=== PATIENT | male | born 1950 | race Caucasian/White ===

== ENCOUNTER 2021-02-11 01:57 | Day surgery (SDC) | payer MEDICARE, OTHER, SELFPAY ==
[2021-01-29 14:08] VITALS: BMI 21.8
--- NOTE | 2021-02-11 06:53 | PM.HPGS ---
History of Present Illness History of Present Illness Consent: Risks, benefits, and alternatives have been discussed and questions answered. Patient agrees to proceed with procedure. Chief complaint: neoplasm screening Narrative: Wilfredo Ponce is a 70 year old male here for colon cancer screening. He has a history of polyps Review of Systems Review of Systems: All systems reviewed & are unremarkable except as noted in HPI and below PMFSH Social History Social History Smoking status: Never smoker Alcohol use details: 1 drink a month Substance use: former Substance use type: marijuana Living arrangements: with family Gender identity (if verbalized by the patient): Male Sexual Orientation (if Verbalized by the Patient): Straight or Heterosexual Spiritual care concerns: No Meds Home Medications and Allergies Home Medications Medication Instructions Recorded Confirmed Type alprazolam 1 mg PO QID PRN 01/29/21 02/11/21 History amlodipine 10 mg PO DAILY 01/29/21 02/11/21 History apixaban [Eliquis] 5 mg PO BID 01/29/21 02/11/21 History citalopram 20 mg PO DAILY PRN 01/29/21 02/11/21 History clindamycin HCl 150 mg PO PRN PRN 01/29/21 02/11/21 History diclofenac sodium 75 mg PO BID 01/29/21 02/11/21 History fluticasone propionate 50 mcg INTRANASAL DAILY PRN 01/29/21 02/11/21 History hydrochlorothiazide 25 mg PO DAILY 01/29/21 02/11/21 History hydrocodone-acetaminophen 1 tablet PO QID PRN 01/29/21 02/11/21 History lisinopril 40 mg PO DAILY 01/29/21 02/11/21 History metoprolol succinate 100 mg PO DAILY 01/29/21 02/11/21 History pregabalin 50 mg PO DAILY PRN 01/29/21 02/11/21 History trazodone 50 mg PO DAILY 01/29/21 02/11/21 History Allergies Allergy/AdvReac Type Severity Reaction Status Date / Time No Known Allergies Allergy Verified 02/11/21 08:49 Exam Resp: Auscultation: clear to auscultation bilaterally Cardio: Rate: regular rate Rhythm: regular rhythm GI: GI Palp: Yes Soft to palpation and No Tenderness to palpation present (GI) Assessment and Plan Assessment and plan (1) Colon cancer screening: Code(s): Z12.11 - Encounter for screening for malignant neoplasm of colon Status: Acute Assessment and Plan: Colonoscopy with possible biopsy or polypectomy or cautery or injection of substances.
[2021-02-11 08:50] VITALS: BP 112/72; PULSE 45; RESP 16; TEMP 36.5; O2SAT 100
[2021-02-11] MEDS: LACTATED RINGERS 1,000 ML 150 ML IV CONT (09:08)
--- NOTE | 2021-02-11 09:36 | P.PNAN_ITS ---
Anes - Initial Pre Proc Eval Procedure: Operation Date: 02/11/21 09:30 Proposed Procedures p Screening Colonoscopy - Nasir Paul MD Date/Time: 02/11/21 09:36 Surgeon: Nasir Paul MD Pre Op Diagnosis: neoplasm screening Patient Data Age: 70 Gender: M Height: 1.78 m Weight: 67.5 kg Last Vital Signs Temp 97.7 F 02/11/21 08:50 Pulse 45 L 02/11/21 08:50 Resp 16 02/11/21 08:50 BP 112/72 02/11/21 08:50 Pulse Ox 100 02/11/21 08:50 Allergies Allergy/AdvReac Type Severity Reaction Status Date / Time No Known Allergies Allergy Verified 02/11/21 08:49 Home Medications Medication Instructions Recorded Confirmed Type alprazolam 1 mg PO QID PRN 01/29/21 02/11/21 History amlodipine 10 mg PO DAILY 01/29/21 02/11/21 History apixaban [Eliquis] 5 mg PO BID 01/29/21 02/11/21 History citalopram 20 mg PO DAILY PRN 01/29/21 02/11/21 History clindamycin HCl 150 mg PO PRN PRN 01/29/21 02/11/21 History diclofenac sodium 75 mg PO BID 01/29/21 02/11/21 History fluticasone propionate 50 mcg INTRANASAL DAILY PRN 01/29/21 02/11/21 History hydrochlorothiazide 25 mg PO DAILY 01/29/21 02/11/21 History hydrocodone-acetaminophen 1 tablet PO QID PRN 01/29/21 02/11/21 History lisinopril 40 mg PO DAILY 01/29/21 02/11/21 History metoprolol succinate 100 mg PO DAILY 01/29/21 02/11/21 History pregabalin 50 mg PO DAILY PRN 01/29/21 02/11/21 History trazodone 50 mg PO DAILY 01/29/21 02/11/21 History Patient hx anesthesia problems: none Family hx anesthesia problems: none Results Review: All pre-operative results and documents have been reviewed as part of the pre-operative evaluation. [facility] Social History Social History Smoking status: Never smoker Alcohol use details: 1 drink a month Substance use: former Substance use type: marijuana Living arrangements: with family Gender identity (if verbalized by the patient): Male Sexual Orientation (if Verbalized by the Patient): Straight or Heterosexual Spiritual care concerns: No Anes - Eval Final PreProcedure Day of Procedure 02/11/21 09:36 Patient weight: normal Heart: regular rate and rhythm Lungs: clear to auscultation Airway: Mallampati scale class II Neurological: alert and oriented Last oral intake: >/= 8 hours ASA classification: III Emergent: no Anesthetic plan: proceed Anesthesia type and monitoring: general GIVS and standard monitoring Results Review: All pre-operative results and documents have been reviewed as part of the pre-operative evaluation. Informed Consent: The patient's anesthetic plan and its attendant risks and benefits were discussed with the patient/family/POA. Questions were solicited and answers provided to the satisfaction of the patient/family/POA.
[2021-02-11 09:59] VITALS: BP 85/42; PULSE 48; RESP 18; O2SAT 100
[2021-02-11 10:09] VITALS: BP 102/63; PULSE 47; RESP 11; O2SAT 99
[2021-02-11 10:19] VITALS: BP 118/75; PULSE 50; RESP 18; O2SAT 99
== END 2021-02-11 10:24 | disposition home or self-care (01) ==
PROVIDERS: PCP Internal Medicine; Visit Provider Internal Medicine Gastroenterology
PROC: 0DJD8ZZ Inspection of Lower Intestinal Tract, Via Natural or Artificial Opening Endoscopic (ICD-10-PCS; CPT 45378; principal; 2021-02-11 09:30)
DX: Z12.11 Encounter for screening for malignant neoplasm of colon (principal); K64.8 Other hemorrhoids; Z86.010 Personal history of colon polyps; Z79.01 Long term (current) use of anticoagulants
CPT/HCPCS: G0105; J2704; J7120

== ENCOUNTER 2022-08-17 10:01 | Emergency (ER) | payer MEDICARE, OTHER, SELFPAY ==
--- NOTE | ~2022-08-17 | XR_ITS ---
EXAMINATION: XR hand LT min 3V INDICATION: Right hand pain and swelling TECHNIQUE: Three views of the right hand are obtained. COMPARISON: None available FINDINGS: There is no fracture. There are advanced osteoarthritis at the distal radioulnar joint. Mod erate osteoarthritis is noted in multiple interphalangeal joints. There is moderate osteoarthritis of the second and third fingers. No radiopaque foreign body is identified. IMPRESSION: 1. Soft tissue swelling without acute osseous abnormality. 2. Polyarticular osteoarthritis. Reviewed, dictated and finalized at location L.
--- NOTE | 2022-08-17 10:10 | ED.ANIMALBIT ---
HPI - Animal Bite General Chief Complaint: Animal Bite Stated Complaint: DOG BITE Time Seen by Provider: 08/17/22 10:11 Source: patient and RN notes reviewed History of Present Illness HPI narrative: Patient is a 72-year-old male who presents to urgent care with complaints of a dog bite to the left hand. Patient states that happened on Tuesday while his gold retriever and boxer were getting into an issue. Patient states that he stuck his hand in the middle and got bit by the Campbell retriever. Patient states that all dogs are up-to-date on vaccinations as well as himself with a tetanus. Patient called his primary care doctor yesterday and was placed on clindamycin. Denies any fevers. States the swelling in the hand has increased. No other acute complaints. No acute distress noted. Patient aware of the plan of care. Some parts of this dictation were generated by voice recognition software and may contain typographical and/or grammatical inaccuracies. Related Data Home Medications Medication Instructions Recorded Confirmed alprazolam 1 mg tablet 1 mg PO QID PRN Anxiety 01/29/21 02/11/21 amlodipine 10 mg tablet 10 mg PO DAILY 01/29/21 02/11/21 apixaban 5 mg tablet (Eliquis) 5 mg PO BID 01/29/21 02/11/21 citalopram 20 mg tablet 20 mg PO DAILY PRN Allergy Symptoms 01/29/21 02/11/21 diclofenac sodium 75 mg 75 mg PO BID 01/29/21 02/11/21 tablet,delayed release fluticasone propionate 50 50 mcg intranasal DAILY PRN 01/29/21 02/11/21 mcg/actuation nasal Congestion spray,suspension hydrochlorothiazide 25 mg tablet 25 mg PO DAILY 01/29/21 02/11/21 hydrocodone 10 mg-acetaminophen 1 tablet PO QID PRN Pain 01/29/21 02/11/21 325 mg tablet lisinopril 40 mg tablet 40 mg PO DAILY 01/29/21 02/11/21 metoprolol succinate 100 mg 100 mg PO DAILY 01/29/21 02/11/21 tablet,extended release 24 hr pregabalin 50 mg capsule 50 mg PO DAILY PRN Pain 01/29/21 02/11/21 trazodone 50 mg tablet 50 mg PO DAILY 09/16/21 09/29/21 Allergies Allergy/AdvReac Type Severity Reaction Status Date / Time No Known Allergies Allergy Verified 08/17/22 10:07 Review of Systems Review of Systems: CONSTITUTIONAL: Denies fever, chills, or sweats. EYES: Denies visual changes, redness, or discharge. ENT: Denies rhinorrhea, congestion, sore throat, or otalgia. CARDIOVASCULAR: Denies chest pain, palpitations, or edema. RESPIRATORY: Denies cough or dyspnea. GASTROINTESTINAL: Denies abdominal pain, nausea, vomiting, or diarrhea. GENITOURINARY: Denies dysuria or hematuria. SKIN: Reports of open wounds due to dog bite to the left index and ring fingers MUSCULOSKELETAL: Reports pain and swelling to the left index and middle finger NEUROLOGIC: Denies headache, numbness, or weakness. All other systems reviewed are negative, except as documented in HPI. [facility] Social History Social History Smoking status: Never smoker Alcohol use details: 1 drink a month Substance use: former Substance use type: marijuana Living arrangements: with family Gender identity (if verbalized by the patient): Male Sexual Orientation (if Verbalized by the Patient): Straight or Heterosexual Spiritual care concerns: No Comments At the time of my signature, I reviewed and agree with the nursing past medical, surgical, social, and family history. There is no relevant family history pertinent to the patient complaint. Exam Narrative: GENERAL: This is a well-nourished, well-developed patient, in no apparent distress. HEAD: normocephalic, atraumatic. EYES: PERRL. Sclera clear/white. Vision is grossly intact. EARS: External ears normal NOSE: External nose normal with no obvious nasal discharge, nares without redness, no rhinorrhea. THROAT: Mucous membranes moist NECK: Neck supple SKIN: 1 x 2 open draining dog bite/acute wound to the PIP of the left index finger with moderate edema and erythema. 3 cm healing dog bite/laceration t
[2022-08-17 10:11] VITALS: BP 123/88; PULSE 57; RESP 16; TEMP 36; O2SAT 98
== END 2022-08-17 11:00 | disposition short-term general hospital (02) ==
PROVIDERS: Emergency Provider Nurse Practitioner Family; PCP Internal Medicine
DX: S61.251A Open bite of left index finger without damage to nail, initial encounter (principal); S61.213A Laceration without foreign body of left middle finger without damage to nail, initial encounter; W54.0XXA Bitten by dog, initial encounter; I48.91 Unspecified atrial fibrillation; I10 Essential (primary) hypertension; F41.9 Anxiety disorder, unspecified
CPT/HCPCS: 73130; 99213; G0463

== ENCOUNTER 2022-08-17 11:36 | Inpatient (IN) | payer MEDICARE, OTHER, SELFPAY ==
[2022-08-17 11:52] VITALS: BP 130/71; PULSE 52; RESP 16; TEMP 36.8; O2SAT 98
[2022-08-17 14:10] LABS: Basophils Absolute Auto 0.1 K/mm3 (0.0-0.1); Basophils Percent Auto 0.4 % (0.2-1.2); Eosinophils Percent Auto 0.3 % (0-4.4); Hematocrit 33.8 % (42.0-52.0); Hemoglobin 11.1 g/dL (14.0-18.0); Immature Granulocyte Absolute 0.06 K/mm3 (0.00-0.031); Immature Granulocyte Percent A 0.5 % (0-0.5); Lymphocytes Absolute Auto 1.69 K/mm3 (0.9-3.2); Lymphocytes Percent Auto 13.3 % (18.3-44.2); Mean Corpuscular HGB Conc 32.8 g/dl (32-36); Mean Corpuscular Hemoglobin 32.8 pg (26-34); Monocytes Absolute Auto 1.6 K/mm3 (0.1-0.6); Monocytes Percent Auto 12.2 % (2.6-8.5); Neutrophils Absolute Auto 9.3 K/mm3 (1.3-6.7); Neutrophils Percent Auto 73.3 % (45.5-73.1); Platelet Count Result 186 k/mm3 (150-375); Red Blood Count 3.38 M/mm3 (4.6-6.20); Red Cell Distribution Width 13.2 % (11.5-14.5); White Blood Count 12.7 K/mm3 (4.5-10.0)
[2022-08-17 15:54] VITALS: BP 116/69; PULSE 63; RESP 18; TEMP 36.5; O2SAT 100
--- NOTE | 2022-08-17 17:37 | ED.ANIMALBIT ---
HPI - Animal Bite General Chief Complaint: Animal Bite <Gerri Bonilla PA-C - Last Filed: 08/17/22 23:51> Stated Complaint: dog bite urgent care sent pt. <Gerri Bonilla PA-C - Last Filed: 08/17/22 23:51> Time Seen by Provider: 08/17/22 17:37 <Gerri Bonilla PA-C - Last Filed: 08/17/22 23:51> History of Present Illness HPI narrative: Patient is a 72-year-old right handed male here due to concerns over infected dog bite to left hand. Patient states that 4 days ago he was breaking up a fight between his dog and a maori bulldog when he sustained numerous bites to his left second and third finger. Patient states that his dogs are up-to-date on their vaccinations and patient is presently up-to-date on his tetanus. He noticed some purulent drainage from the wounds develop yesterday, called his PCP who placed him on Clindamycin. Patient has taken 3 pills of the clindamycin but states that the redness and swelling has moved proximally. He denies any fevers, chills, nausea or vomiting. He is not immunocompromised for any reason. Patient was seen and evaluated in triage due to long wait times, limiting exam. <Gerri Bonilla PA-C - Last Filed: 08/17/22 23:51> Related Data Home Medications: Home Medications Medication Instructions Recorded Confirmed alprazolam 1 mg tablet 1 mg PO QID PRN Anxiety 01/29/21 08/17/22 amlodipine 10 mg tablet 10 mg PO DAILY 01/29/21 08/17/22 apixaban 5 mg tablet (Eliquis) 5 mg PO BID 01/29/21 08/17/22 fluticasone propionate 50 50 mcg intranasal DAILY PRN 01/29/21 08/17/22 mcg/actuation nasal Congestion spray,suspension hydrocodone 10 mg-acetaminophen 1 tablet PO QID PRN Pain 01/29/21 08/17/22 325 mg tablet metoprolol succinate 100 mg 100 mg PO DAILY 01/29/21 08/17/22 tablet,extended release 24 hr pregabalin 50 mg capsule 50 mg PO DAILY PRN nerve pain 01/29/21 08/17/22 trazodone 50 mg tablet 50 mg PO DAILY 01/29/21 08/17/22 <LACHELLE Brown Last Filed: 08/17/22 23:51> Allergies/Adverse Reactions: Allergies Allergy/AdvReac Type Severity Reaction Status Date / Time Penicillins Allergy Rash Verified 08/17/22 11:57 <LACHELLE Brown Last Filed: 08/17/22 23:51> Review of Systems Review of Systems: Gen.: Denies fevers or chills Eyes: Denies eye pain or visual change ENT: Denies congestion Respiratory: Denies shortness of breath or cough CV: Denies chest pain or palpitations GI: Denies abdominal pain nausea, emesis or diarrhea denies burning, urgency, frequency or hematuria Musculoskeletal: Reports left hand pain and swelling Neuro: Denies numbness, tingling, weakness or focal weakness Skin: Denies rash Except as documented, all other systems reviewed and negative <LACHELLE Brown Last Filed: 08/17/22 23:51> [facility] Social History Social History: Social History Smoking status: Never smoker Alcohol intake: current Drinks per week: 0 Alcohol use details: 1 drink a month Substance use: former Substance use type: opiates Lack of Transportation: No Lack of Food: Never True Current Housing: I Have Housing Concerned About Future Housing: No Difficulty Paying Gas/Electric Bills: No Difficulty Paying for Meds: No Currently Unemployed: No Education: High School Diploma/GED Difficulty w/ Childcare or Family Care: No Living arrangements: with family Gender identity (if verbalized by the patient): Male Sexual Orientation (if Verbalized by the Patient): Straight or Heterosexual Spiritual care concerns: No <LACHELLE Brown Last Filed: 08/17/22 23:51> Exam Narrative: APPEARANCE: Well appearing, no pain in distress, well-nourished. Head: Normocephalic and atraumatic. EYES: PERRLA/EOMI, conjunctivae clear NOSE: No nasal drainage EARS: External ear normal in appearance THROAT: [place]
--- NOTE | 2022-08-17 17:55 | PC.NURSE ---
Pt ambulates into ER from home c/o a dog bite to left hand across his index and middle finger. Pt states he was bit by one of his dogs attempting to break up a fight on Tuesday night around 1999. Pt states that he attempted to clean the wounds and keep them closed with steri strips and derma bound. Pt states the wound on his left index finger started to swell with some pain on Tuesday then noticed a foul smell Tuesday morning. Pt states he did call his PCP and obtained a clindamycin prescription on Tuesday. Pt states he was seen at an Urgent Care this morning and was sent to the ED for further evaluation. Pt has PMS present distal to the injury. Pt's left index finger has redness, swelling, and oozing a yellow discharge from the wound.
--- NOTE | 2022-08-17 19:00 | PC.NURSE ---
Assumed care of pt. at this time. Report from ISA Seo
[2022-08-17 19:05] LABS: Alanine Aminotransferase 16 U/L (6-50); Albumin Level 4.8 g/dL (3.5-5.1); Alkaline Phosphatase 80 U/L (38-126); Anion Gap 8 mmol/L (8-16); Aspartate Amino Transferase 23 U/L (17-59); Bilirubin,Total 1.2 mg/dL (0.2-1.3); Blood Urea Nitrogen 16 mg/dL (9-20); Calcium 9.3 mg/dL (8.4-10.2); Carbon Dioxide 28 mmol/L (22-30); Chloride 93 mmol/L (98-107); Estimated CRCL calculation 82 ml/min; Estimated Glomerular Filt Rate > 60; Glucose 93 mg/dL (65-110); Lactic Acid Reflex 0.8 mmol/L (0.7-2.0); Potassium 4.2 mmol/L (3.4-5.0); Sodium 129 mmol/L (137-145)
[2022-08-17 19:18] LABS: CRP 13.5 mg/dL (<1.0)
[2022-08-17 19:30] LABS: Erythrocyte Sedimentation Rate 31 mm/hr (0-20)
[2022-08-17] MEDS: SODIUM CHLORIDE 0.9% IV 1,000 ML 999 ML IV CONT (19:50)
--- NOTE | 2022-08-17 19:57 | PM.IMHP ---
H&P: HPI History of Present Illness Date/Time: 08/17/22 19:57 Chief Complaint: Dog bite PMFSH Social History Social History Smoking status: Never smoker Alcohol intake: current Drinks per week: 0 Alcohol use details: 1 drink a month Substance use: former Substance use type: opiates Lack of Transportation: No Lack of Food: Never True Current Housing: I Have Housing Concerned About Future Housing: No Difficulty Paying Gas/Electric Bills: No Difficulty Paying for Meds: No Currently Unemployed: No Education: High School Diploma/GED Difficulty w/ Childcare or Family Care: No Living arrangements: with family Gender identity (if verbalized by the patient): Male Sexual Orientation (if Verbalized by the Patient): Straight or Heterosexual Spiritual care concerns: No Meds Home Medications and Allergies Home Medications Medication Instructions Recorded Confirmed Type alprazolam 1 mg tablet 1 mg PO QID PRN Anxiety 01/29/21 08/17/22 History amlodipine 10 mg tablet 10 mg PO DAILY 01/29/21 08/17/22 History apixaban 5 mg tablet (Eliquis) 5 mg PO BID 01/29/21 08/17/22 History citalopram 20 mg tablet 20 mg PO DAILY PRN Allergy Symptoms 01/29/21 08/17/22 History fluticasone propionate 50 50 mcg intranasal DAILY PRN 01/29/21 08/17/22 History mcg/actuation nasal Congestion spray,suspension hydrocodone 10 mg-acetaminophen 1 tablet PO QID PRN Pain 01/29/21 08/17/22 History 325 mg tablet metoprolol succinate 100 mg 100 mg PO DAILY 01/29/21 08/17/22 History tablet,extended release 24 hr pregabalin 50 mg capsule 50 mg PO DAILY PRN Pain 01/29/21 08/17/22 History trazodone 50 mg tablet 50 mg PO DAILY 01/29/21 08/17/22 History Allergies Allergy/AdvReac Type Severity Reaction Status Date / Time Penicillins Allergy Rash Verified 08/17/22 11:57 Vital Signs Vital Signs - 24 hr 08/17/22 11:52 08/17/22 15:54 Temperature 98.2 F 97.7 F Pulse Rate 52 L 63 Respiratory Rate 16 18 Blood Pressure 130/71 116/69 Pulse Oximetry 98 100 Oxygen Delivery Room Air Exam Narrative: Patient laying in a stretcher Const: General: comfortable, no acute distress, well developed, alert, awake and average body habitus Nutritional Appearance: average body habitus Orientation/consciousness: patient oriented x3 HENMT: Head: normal to inspection, normocephalic and atraumatic Ears: hearing grossly normal bilaterally Face/Nose/Sinus: normal facial exam Face and sinus: normal facial exam Eyes: General: appearance normal, both eyes and all related structures Pupils: Equal, round and reactive pupils present EOM: EOMs intact bilaterally Neck: Neck: full ROM, no lymphadenopathy and no JVD Thyroid: thyroid normal Lymphatic: no lymphadenopathy noted Resp: Effort & Inspection: normal respiratory effort and able to speak in complete sentences Auscultation: clear to auscultation bilaterally Cardio: Jugular venous distension: no JVD Rate: regular rate Rhythm: regular rhythm Heart sounds: S1 normal heart sound present and S2 normal heart sound present GI: Inspection: normal to inspection GI Palp: Yes Soft to palpation and Yes No hepatosplenomegaly present : General: Yes deferred Skin: Rashes: rashes noted (Left hand erythema) Wounds: wounds noted (2nd and 3rd finger left hand) Neuro: General: patient oriented x3 and CN's II-XI intact bilaterally Cranial nerves: Yes CN's II-XII intact bilaterally and Yes Equal, round and reactive pupils present Cognition (Neuro): normal cognition Speech: normal speech Gait exam (Neuro): Normal gait present Motor exam (neuro): 5/5 motor strength present throughout Extrem: General: normal to inspection, full ROM, no joint enlargement and no pedal edema H&P: Results Labs Labs: Short CBC 08/17/22 Range/Units 13:58 WBC 12.7 H (4.5-10.0) K/mm3 Hgb 11.1 L (14.0-18.0) g/dL Hct 33.8 L (42.0-52
[2022-08-17] MEDS: HYDROcodone/acetaminophen (*CRX) 10-325 MG TABLET 1 TAB PO (20:03)
[2022-08-17] MEDS: ALPRAZolam (*CRX) 0.5 MG TABLET 1 MG PO (20:03)
[2022-08-17] MEDS: CLINDAMYCIN 600 MG/D5W 50 ML 600 MG/50 ML PIGGYBACK 100 MG IVPB (20:04)
[2022-08-17 20:05] VITALS: BP 134/89; PULSE 66; RESP 14; O2SAT 100
[2022-08-17 21:00] VITALS: BP 106/76; PULSE 100; RESP 14; O2SAT 97
--- NOTE | 2022-08-17 21:52 | ADMGEN ---
This patient, Wilfredo Ponce, was admitted to [facility] Surg Room 313-01. Patient/family oriented to hospital policies and general routines including ID bracelet, bed and alarms, visiting hours, pain management, procedures, bathroom and other care routines, personal items, smoking policy, room service/diet, and visiting hours. Information on how to activate the Rapid Response Team has been discussed. Patient/Family are encouraged to report perceived risks to care and to ask questions if they do not understand what they are told or what they should do.
[2022-08-17 22:00] VITALS: BP 109/82; PULSE 64; RESP 16; TEMP 35.6; O2SAT 98; BMI 21.4
[2022-08-18] VITALS (13 sets, daily range): BP systolic 94–163; BP diastolic 64–93; PULSE 52–122; RESP 12–18; TEMP 36.1–37; O2SAT 96–100
[2022-08-18] MEDS: CLINDAMYCIN 600 MG/D5W 50 ML 600 MG/50 ML PIGGYBACK 100 MG IVPB ×3 (03:25→20:25)
[2022-08-18] MEDS: ALPRAZolam (*CRX) 0.5 MG TABLET 1 MG PO ×3 (04:51→20:24)
[2022-08-18] MEDS: HYDROcodone/acetaminophen (*CRX) 10-325 MG TABLET 1 TAB PO ×3 (04:53→20:23)
[2022-08-18] MEDS: METOPROLOL SUCCINATE EXT REL 100 MG TABCR PO (08:43)
[2022-08-18] MEDS: amLODIPine BESYLATE 5 MG TABLET 10 MG PO (08:44)
--- NOTE | 2022-08-18 09:16 | WPDCN ---
Assessment and Plan Assessment and plan (1) Infected dog bite of hand: Code(s): S61.459A - Open bite of unspecified hand, initial encounter; L08.9 - Local infection of the skin and subcutaneous tissue, unspecified; W54.0XXA - Bitten by dog, initial encounter Status: Acute Plan Infected dog bite to left index finger. I&D today around 1600 hrs. HPI Data of Consult Date/Time: 08/18/22 09:16 Requesting Physician: Melania Mcginnis MD Primary Care Provider: Ant Hickman, Consult Narrative Narrative: Wilfredo Ponce is a 72 year old male who injured his left hand trying to break up a fight between 2 of his dogs. The injury was sustained last Tuesday. The patient tried to care for this himself . The finger has become increasingly red and swollen.. [place] [id number] and slight drainage from open areas on the index finger. The patient was able to flex and extend the digit showing intact extensors but the digit was quite swollen and was tender. The puncture sites are on the palmar and dorsal aspect. [facility] Social History Social History Smoking status: Never smoker Alcohol intake: current Drinks per week: 0 Alcohol use details: 1 drink a month Substance use: former Substance use type: opiates Lack of Transportation: No Lack of Food: Never True Current Housing: I Have Housing Concerned About Future Housing: No Difficulty Paying Gas/Electric Bills: No Difficulty Paying for Meds: No Currently Unemployed: No Education: High School Diploma/GED Difficulty w/ Childcare or Family Care: No Living arrangements: with family Gender identity (if verbalized by the patient): Male Sexual Orientation (if Verbalized by the Patient): Straight or Heterosexual Spiritual care concerns: No Meds Home Medications and Allergies Home Medications Medication Instructions Recorded Confirmed Type alprazolam 1 mg tablet 1 mg PO QID PRN Anxiety 01/29/21 08/17/22 History amlodipine 10 mg tablet 10 mg PO DAILY 01/29/21 08/17/22 History apixaban 5 mg tablet (Eliquis) 5 mg PO BID 01/29/21 08/17/22 History fluticasone propionate 50 50 mcg intranasal DAILY PRN 01/29/21 08/17/22 History mcg/actuation nasal Congestion spray,suspension hydrocodone 10 mg-acetaminophen 1 tablet PO QID PRN Pain 01/29/21 08/17/22 History 325 mg tablet metoprolol succinate 100 mg 100 mg PO DAILY 01/29/21 08/17/22 History tablet,extended release 24 hr pregabalin 50 mg capsule 50 mg PO DAILY PRN nerve pain 01/29/21 08/17/22 History trazodone 50 mg tablet 50 mg PO DAILY 01/29/21 08/17/22 History Allergies Allergy/AdvReac Type Severity Reaction Status Date / Time Penicillins Allergy Rash Verified 08/17/22 11:57 Vital Signs Vital Signs - 24 hr 08/17/22 11:52 08/17/22 15:54 08/17/22 20:05 Temperature 98.2 F 97.7 F Pulse Rate 52 L 63 66 Respiratory Rate 16 18 14 Blood Pressure 130/71 116/69 134/89 Pulse Oximetry 98 100 100 Oxygen Delivery Room Air 08/17/22 21:00 08/17/22 22:00 08/18/22 04:46 Temperature 96.1 F L 97.3 F L Pulse Rate 100 64 122 H Respiratory Rate 14 16 16 Blood Pressure 106/76 109/82 147/89 H Pulse Oximetry 97 98 97 Oxygen Delivery 08/18/22 05:30 08/18/22 08:43 Temperature 97 F L Pulse Rate 66 104 H Respiratory Rate 16 Blood Pressure 112/70 Pulse Oximetry 97 Oxygen Delivery Exam Narrative: The patient is alert cooperative and in no distress. The right index finger small is not good history of development that. He has an allergy to penicillin and has been started on clindamycin. He is up-to-date on tetanus prophylaxis. There is not lymphangitis at this time. The swelling appears to be limited to the index finger. Results Labs 08/17/22 13:58 08/17/22 18:30 Labs: Short CBC 08/17/22 Range/Units 13:58 WBC 12
[2022-08-18 11:15] LABS: Hematocrit 36.8 % (42.0-52.0); Hemoglobin 12.3 g/dL (14.0-18.0); Mean Corpuscular HGB Conc 33.4 g/dl (32-36); Mean Corpuscular Hemoglobin 33.1 pg (26-34); Mean Corpuscular Volume 98.9 fl (80-100); Mean Platelet Volume 10.3 fl (7.4-10.4); Platelet Count Result 268 k/mm3 (150-375); Red Blood Count 3.72 M/mm3 (4.6-6.20); White Blood Count 8.9 K/mm3 (4.5-10.0)
[2022-08-18 11:17] LABS: Anion Gap 8 mmol/L (8-16); Blood Urea Nitrogen 12 mg/dL (9-20); Carbon Dioxide 29 mmol/L (22-30); Chloride 94 mmol/L (98-107); Estimated CRCL calculation 86 ml/min; Estimated Glomerular Filt Rate > 60; Glucose 103 mg/dL (65-110); Magnesium 1.7 mg/dL (1.6-2.3); Potassium 4.1 mmol/L (3.4-5.0); Sodium 131 mmol/L (137-145)
--- NOTE | 2022-08-18 12:39 | PM.IMPN ---
Progress Note: A&P Assessment and Plan (1) Dog bite: Qualifiers: Encounter type: initial encounter Qualified Code(s): W54.0XXA - Bitten by dog, initial encounter Code(s): W54.0XXA - Bitten by dog, initial encounter Status: Inactive Assessment and Plan: Patient is own dogs Plastic surgery consulted Supportive care 08/18/2022 interval history: 72-year-old male presented with a left index finger dog bites, patient states the pain and swelling and redness persist painful to flex and extend the finger, denies any fever or chills patient will be seen orthopedic surgeon and further recommendation to follow, currently patient is treated with ceftriaxone will follow-up on blood culture will continue to monitor. (2) Infected dog bite of hand: Code(s): S61.459A - Open bite of unspecified hand, initial encounter; L08.9 - Local infection of the skin and subcutaneous tissue, unspecified; W54.0XXA - Bitten by dog, initial encounter Status: Acute Assessment and Plan: Started on antibiotics Cultures in progress (3) Cellulitis of finger of left hand: Code(s): L03.012 - Cellulitis of left finger Status: Acute Assessment and Plan: Will do CT of the hand X-ray reviewed On antibiotics (4) Hypertension: Code(s): I10 - Essential (primary) hypertension Status: Acute Assessment and Plan: Continue home meds Continue to monitor (5) Atrial fibrillation: Code(s): I48.91 - Unspecified atrial fibrillation Status: Acute Assessment and Plan: Rate controlled and anticoagulated Will hold Eliquis for I&D Subjective Date/time seen: 08/18/22 12:39 ED-HPI narrative: ? ? ? Patient is a 72-year-old right handed male here due to concerns over infected dog bite to left hand.? Patient states that 4 days ago he was breaking up a fight between his dog and a bengali bulldog when he sustained numerous bites to his left second and third finger.? Patient states that his dogs are up-to-date on their vaccinations and patient is presently up-to-date on his tetanus.? He noticed some purulent drainage from the wounds develop yesterday, called his PCP who placed him on Clindamycin.? Patient has taken 3 pills of the clindamycin but states that the redness and swelling has moved proximally.? He denies any fevers, chills, nausea or vomiting.? He is not immunocompromised for any reason. 08/18/2022 interval history: 72-year-old male presented with a left index finger dog bites, patient states the pain and swelling and redness persist painful to flex and extend the finger, denies any fever or chills patient will be seen orthopedic surgeon and further recommendation to follow, currently patient is treated with ceftriaxone will follow-up on blood culture will continue to monitor. Review of Systems Review of Systems: Gen.: Denies fevers or chills Eyes: Denies eye pain or visual change ENT: Denies congestion Respiratory: Denies shortness of breath or cough CV: Denies chest pain or palpitations GI: Denies abdominal pain nausea, emesis or diarrhea denies burning, urgency, frequency or hematuria Musculoskeletal: Reports left hand pain and swelling Neuro: Denies numbness, tingling, weakness or focal weakness Skin: Denies rash Except as documented, all other systems reviewed and negative Exam Narrative: Patient is comfortable, NAD HEENT: eyes are clear and none icteric LUNGS: Normal respiratory effort ABD: Not distended Lower extremities: no edema MS: Left index finger edema and erythema open wound painful to flex and extend SKIN: nonjaundiced Neuro: grossly intact. Objective Data Vital Signs Vital Signs: Vital Signs - 24 hr 08/17/22 15:54 08/17/22 20:05 08/17/22 21:00 Temperature 97.7 F Pulse Rate 63 66 100 Respiratory Rate 18 14 14 Blood Pressure 116/69 134/89 106/76 Pulse Oximetry 100 100 97 Oxygen Delivery 08/17/22 22:00 08/18/22 04:46 08/18/22
--- NOTE | 2022-08-18 14:20 | PC.NURSE ---
To OR via bed.
--- NOTE | 2022-08-18 15:27 | PC.NURSE ---
On 08/18/22, the student, Adam Taylor, provided care and completed [facility] documentation on this patient. I have reviewed the student's documentation and agree with the findings.
--- NOTE | 2022-08-18 16:37 | WPDANESEPPF ---
Anes - Initial Pre Proc Eval Procedure: Operation Date: 08/18/22 16:00 Proposed Procedures p Incision and Drainage Left Index Finger - Aram Jasmine MD Date/Time: 08/18/22 16:37 Surgeon: Melania Mcginnis MD Pre Op Diagnosis: Hand Cellulitis Patient Data Age: 72 Gender: M Height: 1.75 m Weight: 66 kg Last Vital Signs Temp 37.0 C 08/18/22 14:32 Pulse 62 08/18/22 14:32 Resp 18 08/18/22 14:32 BP 129/74 08/18/22 14:32 Pulse Ox 97 08/18/22 14:32 O2 Del Method Room Air 08/18/22 14:32 Allergies Allergy/AdvReac Type Severity Reaction Status Date / Time Penicillins Allergy Rash Verified 08/18/22 14:54 Home Medications Medication Instructions Recorded Confirmed Type alprazolam 1 mg tablet 1 mg PO QID PRN Anxiety 01/29/21 08/17/22 History amlodipine 10 mg tablet 10 mg PO DAILY 01/29/21 08/17/22 History apixaban 5 mg tablet (Eliquis) 5 mg PO BID 01/29/21 08/17/22 History fluticasone propionate 50 50 mcg intranasal DAILY PRN 01/29/21 08/17/22 History mcg/actuation nasal Congestion spray,suspension hydrocodone 10 mg-acetaminophen 1 tablet PO QID PRN Pain 01/29/21 08/17/22 History 325 mg tablet metoprolol succinate 100 mg 100 mg PO DAILY 01/29/21 08/17/22 History tablet,extended release 24 hr pregabalin 50 mg capsule 50 mg PO DAILY PRN nerve pain 01/29/21 08/17/22 History trazodone 50 mg tablet 50 mg PO DAILY 01/29/21 08/17/22 History Laboratory Tests 08/17/22 08/17/22 08/17/22 18:30 18:30 18:30 WBC RBC Hgb Hct MCV MCH MCHC RDW Plt Count MPV ESR 31 mm/hr H mm/hr (0-20) Sodium 129 mmol/L L mmol/L (137-145) Potassium 4.2 mmol/L mmol/L (3.4-5.0) Chloride 93 mmol/L L mmol/L (98-107) Carbon Dioxide 28 mmol/L mmol/L (22-30) Anion Gap 8 mmol/L mmol/L (8-16) BUN 16 mg/dL mg/dL (9-20) Creatinine 0.70 mg/dL mg/dL (0.7-1.3) Estim Creat Clear Calc 82 ml/min ml/min Estimated GFR > 60 (59 - ) Glucose 93 mg/dL mg/dL (65-110) Lactic Acid 0.8 mmol/L mmol/L (0.7-2.0) Calcium 9.3 mg/dL mg/dL (8.4-10.2) Magnesium Total Bilirubin 1.2 mg/dL mg/dL (0.2-1.3) AST 23 U/L U/L (17-59) ALT 16 U/L U/L (6-50) Alkaline Phosphatase 80 U/L U/L (38-126) C-Reactive Protein 13.5 mg/dL H mg/dL (<1.0) Total Protein 8.0 g/dL g/dL (6.3-8.2) Albumin 4.8 g/dL g/dL (3.5-5.1) 08/18/22 08/18/22 11:02 11:02 WBC 8.9 K/mm3 K/mm3 (4.5-10.0) RBC 3.72 M/mm3 L M/mm3 (4.6-6.20) Hgb 12.3 g/dL L g/dL (14.0-18.0) Hct 36.8 % L % (42.0-52.0) MCV 98.9 fl fl (80-100) MCH 33.1 pg pg (26-34) MCHC 33.4 g/dl g/dl (32-36) RDW 13.0 % % (11.5-14.5) Plt Count 268 k/mm3 k/mm3 (150-375) MPV 10.3 fl fl (7.4-10.4) ESR Sodium 131 mmol/L L mmol/L (137-145) Potassium 4.1 mmol/L mmol/L (3.4-5.0) Chloride 94 mmol/L L mmol/L (98-107) Carbon Dioxide 29 mmol/L mmol/L (22-30) Anion Gap 8 mmol/L mmol/L (8-16) BUN 12 mg/dL mg/dL (9-20) Creatinine 0.60 mg/dL L mg/dL (0.7-1.3) Estim Creat Clear Calc 86 ml/min ml/min Estimated GFR > 60 (59 - ) Glucose 103 mg/dL mg/dL (65-110) Lactic Acid Calcium 9.0 mg/dL mg/dL (8.4-10.2) Magnesium 1.7 mg/dL mg/dL (1.6-2.3) Total Bilirubin AST ALT Alkaline Phosphatase C-Reactive Protein Total Protein Albumin Patient hx anesthesia problems: none Family hx anesthesia problems: none Results Review: All pre-operative results and documents have been reviewed as
[2022-08-18] MEDS: LACTATED RINGERS 1,000 ML 30 ML IV CONT ×2 (16:45→18:18)
[2022-08-18] MEDS: LIDO 1%/EPINEPHRINE 1:100,000 50 ML VIAL INFILTRATE (17:51)
--- NOTE | 2022-08-18 18:23 | P.OP_ITS ---
Procedure Note - Detailed Date of Procedure 08/18/22 Pre-op Diagnosis Hand Cellulitis Post-op Diagnosis Other (Deep space abscess of left thumb. ) Procedure Performed I&D deep abscess of left index finger. Surgeon Aram Jasmine MD In Home [facility] Anesthesia General Findings Pus and phlegmon of left index finger without flexor tendon involvement. Description of Procedure The patient is left index finger was marked as he waited in the holding area. He was then taken to the operating room where he was placed supine on the operating table and given general anesthesia with an LMA. The site was examined and marked for an ulnar midlateral incision passing through the most damaged skin. The extremity was elevated and the tourniquet inflated to 250 mmHg. A digital block approximately 4 milliliter was applied to the palmar metacarp ophalangeal joint subcutaneous tissue. The skin incision was made with a 15 blade. Phlegmonous tissue was readily identified. We were able to separate the subcu tissue and the neurovascular bundles away from the flexor tendon sheath. We did not see bulging of the tendon sheath. The patient had been able to flex the digit without pain and had no tenderness on the palmar aspect prior to anesthesia. We explore the palmar subcutaneous tissue irrigating with about 400 cc of saline. We explored dorsally and found little area where subcu tissue was being lysed from the fascia. I made a counter incision on the opposite side of the finger through an area were there was skin trauma. The tissue beneath that incision was viable all the way to the neurovascular bundle. After irrigating the digit the wounds were packed with 3 separate pieces of Mepilex Ag placed in the areas that had been the damaged by sepsis. A bulky Kerlix dressing was applied. The tourniquet was released prior to final inspection of the wound and there was almost no bleeding. The digit did appear to be well perfused however The patient was discharged from the operating room stable condition The pus was found. Cultures were taken. The wound margins were sharply trimmed with scissors. Nonviable slough tissue was debrided. Estimated Blood Loss -1.0 Urine Output 300 Drains No Packing Yes Pathology Yes Complications No immediate complications Condition Stable Disposition PACU
[2022-08-18] MEDS: fentaNYL CITRATE INJ (*CRX) 100 MCG/2 ML VIAL 25 MCG IV PUSH ×8 (18:47→23:13)
--- NOTE | 2022-08-18 19:15 | PC.NURSE ---
Back from OR via bed.
[2022-08-18] MEDS: ONDANSETRON INJ 4 MG/2 ML VIAL IV PUSH (20:23)
[2022-08-18] MEDS: ACETAMINOPHEN 325 MG TABLET 650 MG PO (20:24)
[2022-08-18] MEDS: traZODone HCL 50 MG TABLET PO (23:14)
[2022-08-19 01:00] VITALS: PULSE 58; RESP 18; TEMP 36.2; O2SAT 93
[2022-08-19] MEDS: ALPRAZolam (*CRX) 0.5 MG TABLET 1 MG PO (04:32)
[2022-08-19] MEDS: CLINDAMYCIN 600 MG/D5W 50 ML 600 MG/50 ML PIGGYBACK 100 MG IVPB ×3 (04:32→18:54)
[2022-08-19] MEDS: HYDROcodone/acetaminophen (*CRX) 10-325 MG TABLET 1 TAB PO ×4 (04:32→20:44)
[2022-08-19] MEDS: ONDANSETRON INJ 4 MG/2 ML VIAL IV PUSH (04:32)
[2022-08-19] MEDS: ACETAMINOPHEN 325 MG TABLET 650 MG PO (04:33)
[2022-08-19 05:00] VITALS: BP 122/68; PULSE 56; RESP 16; TEMP 35.9; O2SAT 97
[2022-08-19 06:26] LABS: Anion Gap 5 mmol/L (8-16); Blood Urea Nitrogen 15 mg/dL (9-20); Calcium 8.5 mg/dL (8.4-10.2); Carbon Dioxide 28 mmol/L (22-30); Chloride 96 mmol/L (98-107); Estimated CRCL calculation 86 ml/min; Estimated Glomerular Filt Rate > 60; Glucose 127 mg/dL (65-110); Magnesium 1.6 mg/dL (1.6-2.3); Potassium 4.5 mmol/L (3.4-5.0); Sodium 129 mmol/L (137-145)
[2022-08-19 07:51] VITALS: BP 126/73; PULSE 53; RESP 16; TEMP 36.4; O2SAT 96
[2022-08-19 08:45] VITALS: PULSE 64
[2022-08-19] MEDS: METOPROLOL SUCCINATE EXT REL 100 MG TABCR PO (08:45)
[2022-08-19] MEDS: amLODIPine BESYLATE 5 MG TABLET 10 MG PO (08:46)
--- NOTE | 2022-08-19 09:31 | WPDANESPN ---
Anes - Prog Note Post-Op Date/Time: 08/19/22 09:31 Cardiovascular status: normal Respiratory status: normal Airway patency: baseline Mental status: baseline Post-Op hydration status: normal Vital Signs: Last Vital Signs Temp 36.4 C 08/19/22 07:51 Pulse 64 08/19/22 08:45 Resp 16 08/19/22 07:51 BP 126/73 08/19/22 07:51 Pulse Ox 96 08/19/22 07:51 O2 Del Method Room Air 08/18/22 19:00 O2 Flow Rate 6 08/18/22 18:33 Pain Score (VAS): Pt asleep, no nonverbal signs of pain present at this time I/O: Intake & Output 08/18/22 08/19/22 08/19/22 23:59 07:59 15:59 Intake Total 400 650 Output Total 600 625 Balance -200 25 Laboratory Tests 08/18/22 11:02 08/19/22 05:59 08/18/22 08/18/22 08/19/22 11:02 11:02 05:59 WBC 8.9 RBC 3.72 L Hgb 12.3 L Hct 36.8 L MCV 98.9 MCH 33.1 MCHC 33.4 RDW 13.0 Plt Count 268 MPV 10.3 Sodium 131 L 129 L Potassium 4.1 4.5 Chloride 94 L 96 L Carbon Dioxide 29 28 Anion Gap 8 5 L BUN 12 15 Creatinine 0.60 L 0.60 L Estim Creat Clear Calc 86 86 Estimated GFR > 60 > 60 Glucose 103 127 H Calcium 9.0 8.5 Magnesium 1.7 1.6 Microbiology 08/18/22 17:57 Finger Left Index Anaerobic Culture - Preliminary 08/17/22 18:31 Blood Blood Culture - Preliminary 08/17/22 18:30 Blood Blood Culture - Preliminary Post-procedural complaints: none Patient Feedback: Patient satisfied with anesthetic care.
--- NOTE | 2022-08-19 12:39 | WPDPN ---
Progress Note: A&P Assessment and Plan (1) Infected dog bite of hand: Code(s): S61.459A - Open bite of unspecified hand, initial encounter; L08.9 - Local infection of the skin and subcutaneous tissue, unspecified; W54.0XXA - Bitten by dog, initial encounter Status: Acute Assessment and Plan: Responding well to treatment. Plan Continue same. Probably Washout tomorrow. Time Spent With Patient Time with patient: less than 15 minutes Subjective Date/time seen: 08/19/22 12:39 Interval history: Feeling better. Exam Narrative: POD 1 WBC 8. Culture from wound growing G pos and G neg. Dressing changed. Less erythema, swelling and tenderness. No tenderness at flexor tendon sheath. No purulent drainage. Sensation and motor intact. Objective Data Vital Signs Vital Signs: Vital Signs - 24 hr 08/18/22 14:00 08/18/22 14:32 08/18/22 18:18 Temperature 98 F 98.6 F 98.4 F Pulse Rate 61 62 52 L Respiratory Rate 18 18 13 Blood Pressure 129/70 129/74 94/64 L Pulse Oximetry 99 97 97 Oxygen Delivery Room Air Simple Face Mask Oxygen Flow Rate 6 08/18/22 18:33 08/18/22 18:45 08/18/22 19:00 Temperature Pulse Rate 65 67 63 Respiratory Rate 17 12 12 Blood Pressure 127/71 146/78 H 163/78 H Pulse Oximetry 100 99 100 Oxygen Delivery Simple Face Mask Room Air Room Air Oxygen Flow Rate 6 08/18/22 19:15 08/18/22 19:30 08/18/22 20:25 Temperature 97.9 F 97.9 F 97.7 F Pulse Rate 59 L 61 63 Respiratory Rate 16 16 18 Blood Pressure 137/71 140/70 144/74 H Pulse Oximetry 100 100 96 Oxygen Delivery Oxygen Flow Rate 08/18/22 21:30 08/19/22 01:00 08/19/22 05:00 Temperature 98 F 97.1 F L 96.7 F L Pulse Rate 61 58 L 56 L Respiratory Rate 14 18 16 Blood Pressure 146/93 H 122/68 Pulse Oximetry 98 93 97 Oxygen Delivery Oxygen Flow Rate 08/19/22 07:51 08/19/22 08:45 08/19/22 08:45 Temperature 97.6 F Pulse Rate 53 L 64 Respiratory Rate 16 Blood Pressure 126/73 Pulse Oximetry 96 Oxygen Delivery Room Air Oxygen Flow Rate Intake/Output Intake/Output: Intake & Output 08/16/22 08/17/22 08/18/22 08/19/22 23:59 23:59 23:59 23:59 Intake Total 1100 550 820 Output Total 900 625 Balance 1100 -350 195 Meds/Results Medications: Active Medications Generic Name Dose Route Start Last Admin Trade Name Freq PRN Reason Stop Dose Admin Acetaminophen 650 mg 08/17/22 19:31 08/19/22 04:33 Acetaminophen 325 Mg Tablet PO 650 mg Q4H PRN Administration Mild Pain (1-3) or Fever Hydrocodone Bitart/Acetaminophen 1 tab 08/17/22 22:47 08/19/22 08:51 Hydrocodone/Acetaminophen (*Crx) 10-325 Mg Tablet PO 1 tab QID PRN Administration Pain 4-6 Alprazolam 1 mg 08/17/22 22:47 08/19/22 04:32 Alprazolam (*Crx) 0.5 Mg Tablet PO 1 mg QID PRN Administration Anxiety Amlodipine Besylate 10 mg 08/18/22 09:00 08/19/22 08:46 Amlodipine Besylate 5 Mg Tablet PO 10 mg DAILY KAYLA Administration Fentanyl Citrate 25 mcg 08/18/22 16:38 08/18/22 23:13 Fentanyl Citrate Inj (*Crx) 100 Mcg/2 Ml Vial IV PUSH 25 mcg Q2M PRN Administration Pain Fluticasone Propionate 1 spray 08/17/22 22:47 Fluticasone Propionate 0.05% Na Spr 16 Gm Btl (*Bkc) NASAL DAILY PRN Congestion Ceftriaxone Sodium 1 gm in 50 mls @ 100 mls/hr 08/18/22 09:00 08/19/22 08:52 Rocephin 1 Gm/Ns 50 Ml IVPB 100 mls/hr DAILY KAYLA Administration Clindamycin Phosphate 600 mg in 50 mls @ 100 mls/hr 08/18/22 03:00 08/19/22 11:01 Clindamycin 600 Mg/D5w 50 Ml IVPB 100 mls/hr Q8H KAYLA Administration Lactated Ringer's 1,000 mls @ 30 mls/hr 08/18/22 16:40 08/18/22 18:18 Lr - Lactated Ringers Iv IV CONT Infused .Q24H KAYLA Infusion Lactated Ringer's 1,000 mls @ 30 mls/hr 08/18/22 16:40 08/18/22 19:09 Lr - Lactated Ringers Iv IV CONT Infused .Q24H KAYLA Infusion Metoprolol Succinate 100 mg 08/18/22 09:00
[2022-08-19 12:59] VITALS: BP 99/68; PULSE 59; RESP 18; TEMP 36.6; O2SAT 97
--- NOTE | 2022-08-19 16:42 | PM.IMPN ---
Progress Note: A&P Assessment and Plan (1) Dog bite: Qualifiers: Encounter type: initial encounter Qualified Code(s): W54.0XXA - Bitten by dog, initial encounter Code(s): W54.0XXA - Bitten by dog, initial encounter Status: Inactive Assessment and Plan: Patient is own dogs Plastic surgery consulted Supportive care 08/18/2022 interval history: 72-year-old male presented with a left index finger dog bites, patient states the pain and swelling and redness persist painful to flex and extend the finger, denies any fever or chills patient will be seen orthopedic surgeon and further recommendation to follow, currently patient is treated with ceftriaxone will follow-up on blood culture will continue to monitor. (2) Infected dog bite of hand: Code(s): S61.459A - Open bite of unspecified hand, initial encounter; L08.9 - Local infection of the skin and subcutaneous tissue, unspecified; W54.0XXA - Bitten by dog, initial encounter Status: Acute Assessment and Plan: Started on antibiotics Cultures in progress (3) Cellulitis of finger of left hand: Code(s): L03.012 - Cellulitis of left finger Status: Acute Assessment and Plan: X-ray reviewed polyarticular osteoarthritis soft tissue swelling without any acute osseous abnormality On ceftriaxone and clindamycin (4) Hypertension: Code(s): I10 - Essential (primary) hypertension Status: Acute Assessment and Plan: Continue home meds Continue to monitor (5) Atrial fibrillation: Code(s): I48.91 - Unspecified atrial fibrillation Status: Acute Assessment and Plan: Rate controlled and anticoagulated Will hold Eliquis for I&D Plan Mild hyponatremia continue to monitor Subjective Date/time seen: 08/19/22 16:42 Interval history: Feeling better. No new complaints. Wound is wrapped. Denies any fever. Review of Systems Review of Systems: All systems reviewed & are unremarkable except as noted in HPI and below Exam Narrative: Patient is comfortable, NAD HEENT: eyes are clear and none icteric LUNGS: Normal respiratory effort ABD: Not distended Lower extremities: no edema MS: Left index finger edema and erythema open wound painful to flex and extend currently under the dressing which is clean and dry SKIN: nonjaundiced Neuro: grossly intact. Objective Data Vital Signs Vital Signs: Vital Signs - 24 hr 08/18/22 18:18 08/18/22 18:33 08/18/22 18:45 Temperature 98.4 F Pulse Rate 52 L 65 67 Respiratory Rate 13 17 12 Blood Pressure 94/64 L 127/71 146/78 H Pulse Oximetry 97 100 99 Oxygen Delivery Simple Face Mask Simple Face Mask Room Air Oxygen Flow Rate 6 6 08/18/22 19:00 08/18/22 19:15 08/18/22 19:30 Temperature 97.9 F 97.9 F Pulse Rate 63 59 L 61 Respiratory Rate 12 16 16 Blood Pressure 163/78 H 137/71 140/70 Pulse Oximetry 100 100 100 Oxygen Delivery Room Air Oxygen Flow Rate 08/18/22 20:25 08/18/22 21:30 08/19/22 01:00 Temperature 97.7 F 98 F 97.1 F L Pulse Rate 63 61 58 L Respiratory Rate 18 14 18 Blood Pressure 144/74 H 146/93 H Pulse Oximetry 96 98 93 Oxygen Delivery Oxygen Flow Rate 08/19/22 05:00 08/19/22 07:51 08/19/22 08:45 Temperature 96.7 F L 97.6 F Pulse Rate 56 L 53 L 64 Respiratory Rate 16 16 Blood Pressure 122/68 126/73 Pulse Oximetry 97 96 Oxygen Delivery Oxygen Flow Rate 08/19/22 08:45 08/19/22 12:59 Temperature 97.9 F Pulse Rate 59 L Respiratory Rate 18 Blood Pressure 99/68 L Pulse Oximetry 97 Oxygen Delivery Room Air Oxygen Flow Rate Intake/Output Intake/Output: Intake & Output 08/16/22 08/17/22 08/18/22 08/19/22 23:59 23:59 23:59 23:59 Intake Total 3392 930 1014 Output Total 900 625 Balance 1100 -350 395 Meds/Results Medications: Active Medications Generic Name Dose Route Start Last Admin Trade Name Freq PRN Reason Stop Dose Admin Acetaminophen 650
[2022-08-19] MEDS: traZODone HCL 50 MG TABLET PO (20:45)
[2022-08-19 22:00] VITALS: BP 120/74; PULSE 60; RESP 16; TEMP 36; O2SAT 95
[2022-08-20] VITALS (11 sets, daily range): BP systolic 116–157; BP diastolic 66–101; PULSE 56–66; RESP 12–18; TEMP 36–37.2; O2SAT 95–100
[2022-08-20] MEDS: CLINDAMYCIN 600 MG/D5W 50 ML 600 MG/50 ML PIGGYBACK 100 MG IVPB ×3 (03:35→20:01)
[2022-08-20] MEDS: HYDROcodone/acetaminophen (*CRX) 10-325 MG TABLET 1 TAB PO ×2 (03:40→20:00)
[2022-08-20 06:38] LABS: Basophils Percent Auto 0.4 % (0.2-1.2); Eosinophils Absolute Auto 0.1 K/mm3 (0-0.3); Eosinophils Percent Auto 1.1 % (0-4.4); Immature Granulocyte Absolute 0.05 K/mm3 (0.00-0.031); Immature Granulocyte Percent A 0.7 % (0-0.5); Lymphocytes Absolute Auto 1.86 K/mm3 (0.9-3.2); Lymphocytes Percent Auto 24.9 % (18.3-44.2); Mean Corpuscular HGB Conc 33.3 g/dl (32-36); Mean Corpuscular Hemoglobin 32.1 pg (26-34); Mean Corpuscular Volume 96.2 fl (80-100); Mean Platelet Volume 11.8 fl (7.4-10.4); Monocytes Absolute Auto 1.1 K/mm3 (0.1-0.6); Monocytes Percent Auto 15.1 % (2.6-8.5); Neutrophils Absolute Auto 4.3 K/mm3 (1.3-6.7); Neutrophils Percent Auto 57.8 % (45.5-73.1); Platelet Count Result 163 k/mm3 (150-375); Red Blood Count 3.12 M/mm3 (4.6-6.20); Red Cell Distribution Width 12.7 % (11.5-14.5); White Blood Count 7.5 K/mm3 (4.5-10.0)
[2022-08-20 06:47] LABS: Anion Gap 4 mmol/L (8-16); Blood Urea Nitrogen 18 mg/dL (9-20); Calcium 8.1 mg/dL (8.4-10.2); Carbon Dioxide 31 mmol/L (22-30); Chloride 95 mmol/L (98-107); Estimated CRCL calculation 86 ml/min; Estimated Glomerular Filt Rate > 60; Glucose 89 mg/dL (65-110); Magnesium 1.7 mg/dL (1.6-2.3); Sodium 130 mmol/L (137-145)
[2022-08-20] MEDS: FLUTICASONE PROPIONATE 0.05% NA SPR 16 GM BTL (*BKC) 1 SPRAY NASAL (08:21)
[2022-08-20] MEDS: amLODIPine BESYLATE 5 MG TABLET 10 MG PO (08:22)
[2022-08-20] MEDS: METOPROLOL SUCCINATE EXT REL 100 MG TABCR PO (08:22)
--- NOTE | 2022-08-20 15:14 | WPDANESEPPF ---
Anes - Initial Pre Proc Eval Procedure: Operation Date: 08/18/22 16:00 Proposed Procedures p Incision and Drainage Left Index Finger - Aram Jasmine MD Operation Date: 08/20/22 16:30 Proposed Procedures p Washout Left Index Finger - Aram Jasmine MD Date/Time: 08/20/22 15:14 Surgeon: Melania Mcginnis MD Pre Op Diagnosis: Hand Cellulitis Patient Data Age: 72 Gender: M Height: 1.75 m Weight: 66 kg Last Vital Signs Temp 36.5 C 08/20/22 14:00 Pulse 66 08/20/22 14:00 Resp 16 08/20/22 14:00 BP 128/75 08/20/22 14:00 Pulse Ox 98 08/20/22 14:00 O2 Del Method Room Air 08/20/22 08:00 O2 Flow Rate 6 08/18/22 18:33 Allergies Allergy/AdvReac Type Severity Reaction Status Date / Time Penicillins Allergy Rash Verified 08/20/22 15:27 Home Medications Medication Instructions Recorded Confirmed Type alprazolam 1 mg tablet 1 mg PO QID PRN Anxiety 01/29/21 08/17/22 History amlodipine 10 mg tablet 10 mg PO DAILY 01/29/21 08/17/22 History apixaban 5 mg tablet (Eliquis) 5 mg PO BID 01/29/21 08/17/22 History fluticasone propionate 50 50 mcg intranasal DAILY PRN 01/29/21 08/17/22 History mcg/actuation nasal Congestion spray,suspension hydrocodone 10 mg-acetaminophen 1 tablet PO QID PRN Pain 01/29/21 08/17/22 History 325 mg tablet metoprolol succinate 100 mg 100 mg PO DAILY 01/29/21 08/17/22 History tablet,extended release 24 hr pregabalin 50 mg capsule 50 mg PO DAILY PRN nerve pain 01/29/21 08/17/22 History trazodone 50 mg tablet 50 mg PO DAILY 01/29/21 08/17/22 History Laboratory Tests 08/20/22 08/20/22 06:27 06:27 WBC 7.5 K/mm3 K/mm3 (4.5-10.0) RBC 3.12 M/mm3 L M/mm3 (4.6-6.20) Hgb 10.0 g/dL L g/dL (14.0-18.0) Hct 30.0 % L % (42.0-52.0) MCV 96.2 fl fl (80-100) MCH 32.1 pg pg (26-34) MCHC 33.3 g/dl g/dl (32-36) RDW 12.7 % % (11.5-14.5) Plt Count 163 k/mm3 k/mm3 (150-375) MPV 11.8 fl H fl (7.4-10.4) Immature Gran % (Auto) 0.7 % H % (0-0.5) Neut % (Auto) 57.8 % % (45.5-73.1) Lymph % (Auto) 24.9 % % (18.3-44.2) [place] % (Auto) 15.1 % H % (2.6-8.5) Eos % (Auto) 1.1 % % (0-4.4) Baso % (Auto) 0.4 % % (0.2-1.2) Lymph # (Auto) 1.86 K/mm3 K/mm3 (0.9-3.2) [place] # (Auto) 1.1 K/mm3 H K/mm3 (0.1-0.6) Eos # (Auto) 0.1 K/mm3 K/mm3 (0-0.3) Baso # (Auto) 0.0 K/mm3 K/mm3 (0.0-0.1) Abs Immat Gran (auto) 0.05 K/mm3 H K/mm3 (0.00-0.031) Absolute Neuts (auto) 4.3 K/mm3 K/mm3 (1.3-6.7) Absolute Nucleated RBC 0.0 K/mm3 K/mm3 (0.0-0.012) Nucleated RBC % 0.0 % % (0.0-0.2) Sodium 130 mmol/L L mmol/L (137-145) Potassium 4.0 mmol/L mmol/L (3.4-5.0) Chloride 95 mmol/L L mmol/L (98-107) Carbon Dioxide 31 mmol/L H mmol/L (22-30) Anion Gap 4 mmol/L L mmol/L (8-16) BUN 18 mg/dL mg/dL (9-20) Creatinine 0.60 mg/dL L mg/dL (0.7-1.3) Estim Creat Clear Calc 86 ml/min ml/min Estimated GFR > 60 (59 - ) Glucose 89 mg/dL mg/dL (65-110) Calcium 8.1 mg/dL L mg/dL (8.4-10.2) Magnesium 1.7 mg/dL mg/dL (1.6-2.3) Patient hx anesthesia problems: none Family hx anesthesia problems: none Results Review: All pre-operative results and documents have been reviewed as part of the pre-operative evaluation. [facility] Past Medical History Medical History (Updated 08/20/22 @ 15:15 by Joaquin Rg MD) Atrial fibrillation Cellulitis of finger of left hand Chronic narcotic use Hypertension Infected dog bite of hand TRI (obstructive sleep apnea) Social History Social History Smoking status: Never smoker Alcohol intake: current Drinks per week: 0 Alcohol use details: 1 drink a month Substance use: former Substance use type: opiates
[2022-08-20] MEDS: LACTATED RINGERS 1,000 ML 30 ML IV CONT (15:20)
--- NOTE | 2022-08-20 16:03 | PM.IMPN ---
Progress Note: A&P Assessment and Plan (1) Dog bite: Qualifiers: Encounter type: initial encounter Qualified Code(s): W54.0XXA - Bitten by dog, initial encounter Code(s): W54.0XXA - Bitten by dog, initial encounter Status: Inactive Assessment and Plan: Patient is own dogs Plastic surgery consulted Supportive care (2) Infected dog bite of hand: Code(s): S61.459A - Open bite of unspecified hand, initial encounter; L08.9 - Local infection of the skin and subcutaneous tissue, unspecified; W54.0XXA - Bitten by dog, initial encounter Status: Acute Assessment and Plan: Started on antibiotics Cultures in progress (3) Cellulitis of finger of left hand: Code(s): L03.012 - Cellulitis of left finger Status: Acute Assessment and Plan: X-ray reviewed polyarticular osteoarthritis soft tissue swelling without any acute osseous abnormality On ceftriaxone and clindamycin Wound culture reviewed no anaerobes isolated to date Gram-positive bacilli and rare Gram-negative bacilli seen (4) Hypertension: Code(s): I10 - Essential (primary) hypertension Status: Acute Assessment and Plan: Continue home meds Continue to monitor (5) Atrial fibrillation: Code(s): I48.91 - Unspecified atrial fibrillation Status: Acute Assessment and Plan: Rate controlled and anticoagulated Will hold Eliquis for I&D plan today Plan Mild hyponatremia continue to monitor Subjective Date/time seen: 08/20/22 16:03 Interval history: No new complaints. Some pain in his finger. Plan for debridement today awaiting to go there. Remains afebrile. Review of Systems Review of Systems: All systems reviewed & are unremarkable except as noted in HPI and below Exam Narrative: Patient is comfortable, NAD HEENT: eyes are clear and none icteric LUNGS: Normal respiratory effort ABD: Not distended Lower extremities: no edema MS: Left index finger edema and erythema open wound painful to flex and extend currently under the dressing which is clean and dry SKIN: nonjaundiced Neuro: grossly intact. Objective Data Vital Signs Vital Signs: Vital Signs - 24 hr 08/19/22 20:00 08/19/22 22:00 08/20/22 06:00 Temperature 96.8 F L 96.8 F L Pulse Rate 60 56 L Respiratory Rate 16 16 Blood Pressure 120/74 116/66 Pulse Oximetry 95 95 Oxygen Delivery Room Air 08/20/22 08:22 08/20/22 08:00 08/20/22 14:00 Temperature 97.7 F Pulse Rate 61 66 Respiratory Rate 16 Blood Pressure 128/75 Pulse Oximetry 98 Oxygen Delivery Room Air 08/20/22 15:28 Temperature 98.6 F Pulse Rate 58 L Respiratory Rate 16 Blood Pressure 130/70 Pulse Oximetry 97 Oxygen Delivery Room Air Intake/Output Intake/Output: Intake & Output 08/17/22 08/18/22 08/19/22 08/20/22 23:59 23:59 23:59 23:59 Intake Total 1016 256 4378 200 Output Total 900 625 275 Balance 1100 -350 1855 -75 Meds/Results Medications: Active Medications Generic Name Dose Route Start Last Admin Trade Name Freq PRN Reason Stop Dose Admin Acetaminophen 650 mg 08/17/22 19:31 08/19/22 04:33 Acetaminophen 325 Mg Tablet PO 650 mg Q4H PRN Administration Mild Pain (1-3) or Fever Hydrocodone Bitart/Acetaminophen 1 tab 08/19/22 16:58 08/20/22 03:40 Hydrocodone/Acetaminophen (*Crx) 10-325 Mg Tablet PO 1 tab Q4H PRN Administration Pain 4-6 Alprazolam 1 mg 08/17/22 22:47 08/19/22 04:32 Alprazolam (*Crx) 0.5 Mg Tablet PO 1 mg QID PRN Administration Anxiety Amlodipine Besylate 10 mg 08/18/22 09:00 08/20/22 08:22 Amlodipine Besylate 5 Mg Tablet PO 10 mg DAILY KAYLA Administration Fentanyl Citrate 25 mcg 08/18/22 16:38 08/18/22 23:13 Fentanyl Citrate Inj (*Crx) 100 Mcg/2 Ml Vial IV PUSH 25 mcg Q2M PRN Administration Pain Fentanyl Citrate 25 mcg 08/20/22 15:13 Fentanyl Citrate Inj (*Crx) 100 Mcg/2 Ml Vial IV PUS
--- NOTE | 2022-08-20 16:28 | WPDHPUPDATE1 ---
History and Physical Update Update Date/Time: 08/20/22 16:28 History and Physical has been reviewed, including an updated exam of the patient. There are NO changes in the patient's condition. Risks, benefits, and alternatives have been discussed and questions answered. Patient agrees to proceed with procedure.
[2022-08-20] MEDS: LIDO 1%/EPINEPHRINE 1:100,000 20 ML VIAL 12 ML INFILTRATE (16:51)
[2022-08-20] MEDS: fentaNYL CITRATE INJ (*CRX) 100 MCG/2 ML VIAL 25 MCG IV PUSH ×8 (17:37→18:15)
--- NOTE | 2022-08-20 17:45 | W.PM.PROC2 ---
Procedure Note - Detailed Date of Procedure 08/20/22 Pre-op Diagnosis Left index finger abscess Post-op Diagnosis Same Procedure Performed 2nd washout and dressing change under general anesthesia left index finger abscess Surgeon Aram Jasmine MD Anesthesia General Description of Procedure The digit was marked in the holding area. The patient was taken to the operating room where he was placed supine on the operating table. A time-out was held and confirmed he was given general anesthesia with an LMA. The left upper extremity was prepped and draped in usual fashion. The dressing was removed. No local anesthetic was utilized. The the site was irrigated with about 300 milliliter of saline. Some loose sloughing epithelium was trimmed away at several places. There was no damion pus. The finger was relatively soft. All the wounds were carefully examined. Pieces of Aquacel Ag rope were placed in the wound. Three pieces were used proximally total of 8 in. One lay on the radial side of the finger where the skin incision had been made at the prior surgery. Another similar sized piece was placed on the ulnar side along with a 1 in piece. The digit was wrapped with fairly thick Kerlix sponges and Kerlix roll and 2 in Coban. This is not a constricting dressing. The patient was discharged from the operating room stable condition Estimated Blood Loss -1.0 Tourniquet Time 0 Urine Output 275 Drains No Packing Yes Pathology None sent Complications No immediate complications Condition Stable Disposition PACU
[2022-08-20] MEDS: traZODone HCL 50 MG TABLET PO (22:53)
[2022-08-20] MEDS: ALPRAZolam (*CRX) 0.5 MG TABLET 1 MG PO (22:55)
[2022-08-21] MEDS: CLINDAMYCIN 600 MG/D5W 50 ML 600 MG/50 ML PIGGYBACK 100 MG IVPB ×2 (03:05→10:44)
[2022-08-21 03:41] VITALS: BP 112/72; PULSE 54; RESP 16; TEMP 37.1; O2SAT 97
[2022-08-21 06:20] LABS: Anion Gap 5 mmol/L (8-16); Blood Urea Nitrogen 14 mg/dL (9-20); Calcium 8.2 mg/dL (8.4-10.2); Carbon Dioxide 28 mmol/L (22-30); Chloride 94 mmol/L (98-107); Estimated CRCL calculation 74 ml/min; Estimated Glomerular Filt Rate > 60; Glucose 92 mg/dL (65-110); Magnesium 1.6 mg/dL (1.6-2.3); Potassium 4.2 mmol/L (3.4-5.0); Sodium 127 mmol/L (137-145)
[2022-08-21] MEDS: HYDROcodone/acetaminophen (*CRX) 10-325 MG TABLET 1 TAB PO (08:28)
[2022-08-21] MEDS: ALPRAZolam (*CRX) 0.5 MG TABLET 1 MG PO (08:30)
[2022-08-21] MEDS: METOPROLOL SUCCINATE EXT REL 100 MG TABCR PO (08:30)
[2022-08-21] MEDS: amLODIPine BESYLATE 5 MG TABLET 10 MG PO (08:30)
--- NOTE | 2022-08-21 11:52 | WPDPN ---
Progress Note: A&P Assessment and Plan (1) Infected dog bite of hand: Qualifiers: Encounter type: initial encounter Laterality: left Qualified Code(s): S61.452A - Open bite of left hand, initial encounter; L08.9 - Local infection of the skin and subcutaneous tissue, unspecified; W54.0XXA - Bitten by dog, initial encounter Code(s): S61.459A - Open bite of unspecified hand, initial encounter; L08.9 - Local infection of the skin and subcutaneous tissue, unspecified; W54.0XXA - Bitten by dog, initial encounter Status: Acute Assessment and Plan: Stable. Responded well to treatment. Plan Okay for discharge. (Suggest Keflex for 10 days. ) F/U with Dr Jasmine on Tuesday. No dressing change until then. Elevate hand. May use hand as tolerated. Time Spent With Patient Time with patient: less than 15 minutes Subjective Date/time seen: 08/21/22 11:52 Interval history: Group G Strep !! POD 1 and 3 Decompression and debridement of dog bite abscess to Left index finger Exam Narrative: Redressed down to the alginate Ag packing. Edema, erythema, tenderness all markedly reduced. No purulence. Culture result noted. Objective Data Vital Signs Vital Signs: Vital Signs - 24 hr 08/20/22 14:00 08/20/22 15:28 08/20/22 17:28 Temperature 97.7 F 98.6 F Pulse Rate 66 58 L 57 L Respiratory Rate 16 16 14 Blood Pressure 128/75 130/70 148/81 H Pulse Oximetry 98 97 100 Oxygen Delivery Room Air Simple Face Mask Oxygen Flow Rate 8 08/20/22 17:43 08/20/22 18:00 08/20/22 18:15 Temperature Pulse Rate 64 62 60 Respiratory Rate 12 12 12 Blood Pressure 157/86 H 149/76 H 148/80 H Pulse Oximetry 100 99 98 Oxygen Delivery Room Air Room Air Room Air Oxygen Flow Rate 08/20/22 19:50 08/20/22 20:05 08/20/22 22:00 Temperature 98.5 F 98.7 F 98.1 F Pulse Rate 61 59 L 57 L Respiratory Rate 18 18 18 Blood Pressure 141/80 H 127/85 135/101 H Pulse Oximetry 100 100 100 Oxygen Delivery Oxygen Flow Rate 08/20/22 22:00 08/21/22 03:41 08/21/22 08:00 Temperature 98.9 F 98.8 F Pulse Rate 56 L 54 L Respiratory Rate 18 16 Blood Pressure 123/74 112/72 Pulse Oximetry 98 97 Oxygen Delivery Room Air Oxygen Flow Rate Intake/Output Intake/Output: Intake & Output 08/18/22 08/19/22 08/20/22 08/21/22 23:59 23:59 23:59 23:59 Intake Total 550 2480 550 1502 Output Total 900 625 550 Balance -350 1855 0 1502 Meds/Results Medications: Active Medications Generic Name Dose Route Start Last Admin Trade Name Freq PRN Reason Stop Dose Admin Acetaminophen 650 mg 08/17/22 19:31 08/19/22 04:33 Acetaminophen 325 Mg Tablet PO 650 mg Q4H PRN Administration Mild Pain (1-3) or Fever Hydrocodone Bitart/Acetaminophen 1 tab 08/19/22 16:58 08/21/22 08:28 Hydrocodone/Acetaminophen (*Crx) 10-325 Mg Tablet PO 1 tab Q4H PRN Administration Pain 4-6 Alprazolam 1 mg 08/17/22 22:47 08/21/22 08:30 Alprazolam (*Crx) 0.5 Mg Tablet PO 1 mg QID PRN Administration Anxiety Amlodipine Besylate 10 mg 08/18/22 09:00 08/21/22 08:30 Amlodipine Besylate 5 Mg Tablet PO 10 mg DAILY KAYLA Administration Fluticasone Propionate 1 spray 08/17/22 22:47 08/20/22 08:21 Fluticasone Propionate 0.05% Na Spr 16 Gm Btl (*Bkc) NASAL 1 spray DAILY PRN Administration Congestion Ceftriaxone Sodium 1 gm in 50 mls @ 100 mls/hr 08/18/22 09:00 08/21/22 08:25 Rocephin 1 Gm/Ns 50 Ml IVPB 100 mls/hr DAILY KAYLA Administration Clindamycin Phosphate 600 mg in 50 mls @ 100 mls/hr 08/18/22 03:00 08/21/22 11:12 Clindamycin 600 Mg/D5w 50 Ml IVPB Infused Q8H KAYLA Infusion Metoprolol Succinate 100 mg 08/18/22 09:00 08/21/22 08:30 Metoprolol Succinate Ext Rel 100 Mg Tabcr PO 100 mg DAILY KAYLA Administration Ondansetron HCl 4 mg 08/17/22 19:31 08/19/22 04:32 Ondansetron Inj 4 Mg/2 Ml Vial IV PUSH 4 mg Q4H PRN Administration Brannon
[2022-08-21 12:10] VITALS: PULSE 62; O2SAT 96
--- NOTE | 2022-08-21 12:27 | PM.DS ---
DS: Admitting Diagnosis Discharge Date 08/21/2022 Admitting Diagnosis Dog bite finger cellulitis DS: Discharge Diagnosis Discharge Diagnosis (1) Dog bite: Qualifiers: Encounter type: initial encounter Qualified Code(s): W54.0XXA - Bitten by dog, initial encounter Code(s): W54.0XXA - Bitten by dog, initial encounter Status: Inactive (2) Infected dog bite of hand: Qualifiers: Encounter type: initial encounter Laterality: left Qualified Code(s): S61.452A - Open bite of left hand, initial encounter; L08.9 - Local infection of the skin and subcutaneous tissue, unspecified; W54.0XXA - Bitten by dog, initial encounter Code(s): S61.459A - Open bite of unspecified hand, initial encounter; L08.9 - Local infection of the skin and subcutaneous tissue, unspecified; W54.0XXA - Bitten by dog, initial encounter Status: Acute (3) Cellulitis of finger of left hand: Code(s): L03.012 - Cellulitis of left finger Status: Acute (4) Hypertension: Code(s): I10 - Essential (primary) hypertension Status: Acute (5) Atrial fibrillation: Code(s): I48.91 - Unspecified atrial fibrillation Status: Acute DS: Summary Hospital Course Hospital Course: # dog bite: Patient's own dogs Plastic surgery consulted Supportive care # infected dog bite of hand: Started on antibiotics with IV antibiotics with clindamycin and ceftriaxone Culture with group G Streptococcus. Switched to cephalexin at discharge Required debridement with Plastic surgery during the hospital stay #Cellulitis of finger of left hand: X-ray reviewed polyarticular osteoarthritis soft tissue swelling without any acute osseous abnormality On ceftriaxone and clindamycin Wound culture reviewed no anaerobes growth of Streptococcus group G # hypertension: Continue home meds Continue to monitor # atrial fibrillation: Rate controlled and anticoagulated Eliquis was held during the hospital stay will for I&D # Mild hyponatremia continue to monitor # chronic back pain on chronic pain medication Time Spent with Patient Time attestation: Total time spent providing and/or coordinating discharge services: 30 minutes Exam Narrative: Patient is comfortable, NAD HEENT: eyes are clear and none icteric LUNGS: Normal respiratory effort ABD: Not distended Lower extremities: no edema MS: Left index finger edema and erythema open wound painful to flex and extend currently under the dressing which is clean and dry SKIN: nonjaundiced Neuro: grossly intact. DS: Data Data Completed and Pending Labs on day of discharge: Labs from last 24 hours 08/21/22 05:16 Sodium 127 L Potassium 4.2 Chloride 94 L Carbon Dioxide 28 Anion Gap 5 L BUN 14 Creatinine 0.70 Estim Creat Clear Calc 74 Estimated GFR > 60 Glucose 92 Calcium 8.2 L Magnesium 1.6 Preliminary micro results at discharge 08/18/22 17:57 Anaerobic Culture - Preliminary Finger Left Index 08/17/22 18:31 Blood Culture - Preliminary Blood 08/17/22 18:30 Blood Culture - Preliminary Blood Procedures/Treatments: Procedure Note - Detailed Date of Procedure 08/18/22 Pre-op Diagnosis Hand Cellulitis Post-op Diagnosis Other (Deep space abscess of left thumb. ) Procedure Performed I&D? deep abscess of left index finger. Surgeon Aram Jasmine MD Mold Washer Yvon Anesthesia General Findings Pus and phlegmon of left index finger without flexor tendon involvement. Description of Procedure The patient is left index finger was marked as he waited in the holding area.? He was then taken to the operating room where he was placed supine on the operating table and given general anesthesia with an LMA.? The site was examined and marked for an ulnar midlateral incision passing through the most damaged skin.? The extremity was elevated and the tourniquet inflated to 250 mmHg.? A digital block approximately 4 mill
== END 2022-08-21 12:57 | disposition home or self-care (01) | DRG 605 ==
LOC: ANHED 19:01 → ANH3MEDSUR 21:07
PROVIDERS: Emergency Medicine; Family Medicine; Plastic Surgery; Admitting Provider Internal Medicine; Emergency Provider Physician Assistant; PCP Internal Medicine; Visit Provider Internal Medicine
PROC: 0J9K0ZX Drainage of Left Hand Subcutaneous Tissue and Fascia, Open Approach, Diagnostic (ICD-10-PCS; principal; 2022-08-18 16:00)
DX: S61.452A Open bite of left hand, initial encounter (principal); E87.1 Hypo-osmolality and hyponatremia; B95.4 Other streptococcus as the cause of diseases classified elsewhere; L03.012 Cellulitis of left finger; W54.0XXA Bitten by dog, initial encounter; I48.91 Unspecified atrial fibrillation; I10 Essential (primary) hypertension; G89.29 Other chronic pain; M54.9 Dorsalgia, unspecified; M15.9 Polyosteoarthritis, unspecified
CPT/HCPCS: 36415; 73130; 80048; 80053; 83605; 83735; 85025; 85027; 85652; 86140; 87040; 87070; 87075; 87147; 87205; 96365; 96367; 99213; 99285; A9270; C2617; G0378; G0463; J0696; J1100; J2370; J2405; J2704; J3010; J7030; J7120

== ENCOUNTER 2022-09-09 00:44 | Day surgery (SDC) | payer MEDICARE, OTHER, SELFPAY ==
[2022-09-06 08:43] VITALS: BMI 23.3
--- NOTE | 2022-09-06 08:58 | PC.NURSE ---
Report to the Outpatient Waiting Room, entrance under the green pavilion located off [facility], at time __12:30PM on date ___09/09/22____. Planned Procedure Time: _1:30PM . *LOCAL ANESTHESIA* Time changes happen often and if your time is changed the preop area will call you the afternoon before. - You and your visitor will be asked to self-screen and do not enter if you have any COVID symptoms. - A mask is optional within the hospital at this time. Patients may have LIGHT BREAKFAST. Take the following medications with a SIP of water the morning of surgery: ___MORNING MEDS DO NOT STOP ANY OF YOUR OTHER PRESCRIPTION MEDICATIONS PRIOR TO SURGERY ?EXCEPT THE FOLLOWING Medications to discontinue per physician __HOLD ELIQUIS PER DR ACEVEDO- PATIENT CALLING TO VERIFY Please no make-up, nail sri lankan, hairspray, perfume, deodorant, or body powder the day of surgery. No jewelry (including any body piercings) or valuables the day of surgery, leave them at home. Please take a shower or bath the night before, or the morning of, surgery with an antibacterial soap. Wear comfortable, loose fitting clothing. Children are encouraged to wear pajamas. - Jewelry must be removed prior to entering the operating room. Rings and piercings that are not removed may be cut off. - The hospital will not accept responsibility for valuables. - Please leave all valuables, including medications, at home the day of surgery. MAY DRIVE SELF HOME OR HAVE A ASSOCIATE DATA SCIENTIST. Follow any additional instructions given to you from your surgeon. If you or anyone in your household have experienced Covid symptoms in the past week, please notify your surgeon or the nurse liaison at the phone number below for possible testing. Telephone instructions given to __PATIENT and asked if any additional questions and then verbalized understanding. Patient advised to call surgeon office or pre surgery nurse liaison [phone] if any additional questions.
[2022-09-09] VITALS (9 sets, daily range): BP systolic 109–146; BP diastolic 59–71; PULSE 42–53; RESP 18; TEMP 36.7; O2SAT 96–100
--- NOTE | 2022-09-09 07:12 | WPDHPUPDATE1 ---
History and Physical Update Update Date/Time: 09/09/22 07:12 History and Physical has been reviewed, including an updated exam of the patient. There are NO changes in the patient's condition. Risks, benefits, and alternatives have been discussed and questions answered. Patient agrees to proceed with procedure.
[2022-09-09] MEDS: LIDO 1%/EPINEPHRINE 1:100,000 20 ML VIAL 50 ML INFILTRATE (16:21)
--- NOTE | 2022-09-09 17:13 | P.OP_ITS ---
Procedure Note - Detailed Date of Procedure 09/09/22 Pre-op Diagnosis Abscess Lt Index Finger Post-op Diagnosis Other (Granulating surgical wound of the left index finger) Procedure Performed Delayed full-thickness skin graft 3 sq cm to the left ulnar index finger Surgeon Aram Jasmine MD Anesthesia Local Indications Surgical debridement wound of the ulnar left index finger after debridement for abscess of the finger Description of Procedure The digit was marked patient was consented in the holding area. He was taken to the operating room where he was placed supine on the operating table. A time- out was held and confirmed. The left upper extremity was prepped and draped in usual fashion. The digit was blocked with 1% lidocaine with epinephrine. No tourniquet was used. A measured graft donor site was marked on the left radial forearm and the site also infiltrated with 1% lidocaine with epinephrine. The wound bed was carefully debrided with the edge of a 15 blade and Ray-Yu sponge. All debris was removed the wound appeared to be satisfactory for grafting. The graft was harvested from the forearm as a full-thickness graft. It was minimally debrided the donor site was closed with intradermal running 4-0 Vicryl suture. The graft was inset with 5 0 nylon. The bandage there involved a Silver alginate pad, Kerlix roll and Coban. The donor site was dressed with a folded 2 x 2 and taken derm. tolerated well. The patient will be discharged with prescription for cephalexin 500 mg t.i.d. for 5 days. He has oral analgesics at home. Estimated Blood Loss 2 Tourniquet Time 0 Drains No Packing No Pathology None sent Complications No immediate complications Condition Stable Disposition Same day
== END 2022-09-09 17:30 | disposition home or self-care (01) ==
PROVIDERS: PCP Internal Medicine; Visit Provider Plastic Surgery
PROC: (CPT 15240; principal; 2022-09-09 13:30)
DX: Z48.1 Encounter for planned postprocedural wound closure (principal); S61.251D Open bite of left index finger without damage to nail, subsequent encounter; W54.0XXD Bitten by dog, subsequent encounter; Z79.01 Long term (current) use of anticoagulants
CPT/HCPCS: 15240; 15004; A9270

== ENCOUNTER 2023-11-28 11:03 | Emergency (ER) | payer MEDICARE, OTHER, SELFPAY ==
[2023-11-28 11:21] VITALS: BP 143/64; PULSE 45; RESP 20; TEMP 35.8; O2SAT 98
--- NOTE | 2023-11-28 12:15 | ED.GENADULT ---
HPI - General Adult General Chief complaint: Wound/Laceration Stated complaint: LOWER EXTREMITY INJURY Time Seen by Provider: 11/28/23 11:37 History of Present Illness HPI narrative: Patient is a 73-year-old male who presents ER for evaluation of lower extremity wound. Six weeks ago he struck himself with a weed eater and he has been having wound to the left lower leg since then. He recently finished clindamycin. No drainage. No fevers chills or sweats. The wound is the size of a quarter. Related Data Home Medications Medication Instructions Recorded Confirmed alprazolam 1 mg tablet 1 mg PO QID PRN Anxiety 01/29/21 09/09/22 amlodipine 10 mg tablet 10 mg PO QAM 01/29/21 09/09/22 apixaban 5 mg tablet (Eliquis) 5 mg PO BID 01/29/21 09/09/22 fluticasone propionate 50 50 mcg intranasal DAILY PRN 01/29/21 09/09/22 mcg/actuation nasal Congestion spray,suspension hydrocodone 10 mg-acetaminophen 1 tablet PO QID PRN Pain 01/29/21 09/09/22 325 mg tablet metoprolol succinate 100 mg 100 mg PO QAM 01/29/21 09/09/22 tablet,extended release 24 hr pregabalin 50 mg capsule 50 mg PO DAILY PRN nerve pain 01/29/21 09/09/22 trazodone 50 mg tablet 50 mg PO HS 01/29/21 09/09/22 diclofenac sodium 75 mg 75 mg PO BID PRN Pain 09/06/22 09/09/22 tablet,delayed release hydrochlorothiazide 25 mg tablet 1 mg PO QAM PRN Edema 09/06/22 09/09/22 omeprazole 20 mg capsule,delayed 20 mg PO DAILY 09/06/22 09/09/22 release sacubitril 24 mg-valsartan 26 mg 1 tablet PO BID 09/06/22 09/09/22 tablet (Entresto) tizanidine 2 mg capsule 2 mg PO BID PRN Muscle Spasm 09/06/22 09/09/22 Allergies Allergy/AdvReac Type Severity Reaction Status Date / Time No Known Allergies Allergy Verified 11/28/23 11:32 Review of Systems Constitutional: Constitutional: Reports no additional constitutional complaints Musculoskeletal: Musculoskeletal: Reports no additional musculoskeletal complaints Integumentary/Breasts: Skin/Breast: Denies erythema, Denies rash and Reports skin ulcer PMFSH Past Medical History Medical History (Updated 11/28/23 @ 12:17 by Napoleon Mohamud MD) Atrial fibrillation Cellulitis of finger of left hand Chronic narcotic use Hypertension Infected dog bite of hand TRI (obstructive sleep apnea) Social History Social History Smoking status: Never smoker Alcohol intake: current Drinks per week: 0 Alcohol use details: 1 drink a month Substance use: never Substance use type: opiates Lack of Transportation: No Lack of Food: Never True Current Housing: I Have Housing Concerned About Future Housing: No Difficulty Paying Gas/Electric Bills: No Difficulty Paying for Meds: No Currently Unemployed: No Education: High School Diploma/GED Difficulty w/ Childcare or Family Care: No Living arrangements: with family Additional living arrangements comments: Gender identity (if verbalized by the patient): Male Sexual Orientation (if Verbalized by the Patient): Straight or Heterosexual Spiritual care concerns: No Exam Narrative: GENERAL: Well-appearing, well-nourished, and in no acute distress. HEAD: Normocephalic, atraumatic. ENT: Mucous membranes moist. EXTREMITIES: Normal range of motion. No edema. SKIN: Warm, dry . Quarter-sized ulceration left lower leg without surrounding cellulitis. No drainage. There is healing tissue in the periphery and centrally there is a yellow adipose area. NEURO: Alert and oriented x3. PSYCH: Normal mood and affect. Course Course Emergency Course: Recommend referral by PCP to the wound care clinic. Vital Signs Vital signs: Vital Signs Temperature 96.5 F L 11/28/23 11:21 Pulse Rate 45 L 11/28/23 11:21 Respiratory Rate 20 11/28/23 11:21 Blood Pressure 143/64 H 11/28/23 11:21 Pulse Oximetry 98 11/28/23 11:21 Oxygen Delivery Room Air 11/28/23 11:21 Temperature 96.5 F
== END 2023-11-28 12:26 | disposition home or self-care (01) ==
PROVIDERS: Emergency Provider Emergency Medicine; PCP Internal Medicine
DX: S81.802A Unspecified open wound, left lower leg, initial encounter (principal); I48.91 Unspecified atrial fibrillation; I10 Essential (primary) hypertension; G47.33 Obstructive sleep apnea (adult) (pediatric); Z79.01 Long term (current) use of anticoagulants; Z79.899 Other long term (current) drug therapy; W29.3XXA Contact with powered garden and outdoor hand tools and machinery, initial encounter
CPT/HCPCS: 99282

== ENCOUNTER 2024-10-09 12:28 | Observation (INO) | payer MEDICARE, OTHER, SELFPAY ==
--- OUTSIDE RECORDS SUMMARY | 2024-10-09 12:31 | XMS_ITS | Clinical Summary ---
Author Organization [facility] Address [address] [place] [address] Care Team Providers Care Business Operations Consultant Name Role Phone Ant Hickman MD Primary Care Provider [phone] Source Comments [facility],non-owned Affiliates and Associated Physician Practices is amultiple site organization consisting of ambulatory clinics and hospital sitesin [place], [place], [place] and [place]. This disclosure is being madepursuant to the Care Everywhere program and may not contain all information available regarding this patient. 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 Gender Identity Not on file Sexual Orientation Not on file Plan of Treatment Health Maintenance Due Date Last Done Comments HEPATITIS C SCREENING 02/20/1966 DTAP/TDAP/TD VACCINES (1 - Tdap) 02/24/1967 PNEUMOCOCCAL VACCINE 50+ (1 of 1 - PCV) 02/24/1998 ZOSTER VACCINE (1 of 2) 02/24/1998 Respiratory Syncytial Virus (RSV) Vaccine Pt: or over 60 yrs (1 - 1-dose 75+ series) 02/24/2023 COVID-19 VACCINE ( - 2023-2 5 season) 2024 DEPRESSION SCREENING 05/16/2024 INFLUENZA VACCINE (Season Ended) 2025 HEPATITIS B VACCINE Aged Out No longe r eligible based on patient's age to complete this topic HIB VACCINE Aged Out No longer eligi ble based on patient's age to complete this topic HPV VACCINE Aged Out No longer eligi ble based on patient's age to complete this topic MENINGOCOCCAL (Group B) VACC INE SHARED DECISION-MAKING Aged Out No longer eligibl e based on patient's age to complete this topic MENINGOCOCCAL GROUPS A/C/Y/W VACCINE Aged Out No longer eligible b ased on patient's age to complete this topic Insurance [place] [address] Care Teams Business Operations Consultant Relationship Specialty Start Date End Date Ant Hickman MD [address] [place] [phone] PCP - General Internal Medicine 02/20/17
--- OUTSIDE RECORDS SUMMARY | 2024-10-09 12:31 | XMS_ITS | Data Portability ---
Author Organization [facility] [employer], Main Office Address [address] [place] [address] Care Team Providers Care Trimmer Sawyer Name Role Phone PENELOPE HICKMAN Primary Care Provider PENELOPE HICKMAN Referring Provider Assessment No assessment recorded. Plan of Treatment Reminders Order Date Submit Date Provider Last Modified By Organization Details Last Modified Time Details Appointments None recorded. Lab vitamin B12, serum 2024 025 [email or web address] [facility], [address], [place], [address], 5 10:07:57 magnesium, serum or plasma 2024 025 [facility] [address], [place], [address], 5 10:07:57 PSA, serum or plasma 2024 025 [email or web address] [facility] [address], [place], [address], 5 10:07:57 TSH, serum or plasma 2024 025 [email or web address] [facility] [address], [place], [address], 5 10:07:56 T4, free, serum 2024 025 [email or web address] [facility] [address], [place], [address], 5 10:07:56 CBC w/ auto diff 2024 025 [facility], [address], [place], [address], 5 10:07:56 CMP, serum or plasma 2024 025 [email or web address] [facility], [address], [place], [address], 5 10:07:56 lipid panel, serum 2024 025 [facility], [address], [place], [address], 5 10:07:56 drug screen, urine 2024 025 [facility], [address], [place], [address], 5 10:07:57 vitamin B12, serum 2023 024 BARRY [facility], [address], [place], [address], 4 08:46:20 magnesium, serum or plasma 2023 024 BARRY [facility], [address] [place], [address], 4 08:46:18 CBC w/ auto diff 2023 024 [email or web address], [address] [place], [address], 4 08:46:19 CMP, serum or plasma 2023 024 [email or web address], [address] [place], [address], 4 08:46:19 lipid panel, serum 2023 024 [email or web address], [address], [place], [address], 4 08:46:18 TSH, serum or plasma [address] [facility], [address], [place], [address], 4 08:46:20 T4, free, serum 2023 024 [email or web address], [address], [place], [address], 4 08:46:20 PSA, serum or plasma [email or web address] [facility], [address], [place], [address], 4 07:25:59 Referral None recorded. Procedures cerumen removal (PROC) 2024 025 [email or web address] Not available 5 15:38:31 Surgeries None recorded. Imaging None recorded. Medication Orders dexamethaso ne 0.5 mg/5 mL oral elixir 2024 025 [id number], [address], [place], [place], [id number], 5 11:55:42 Paxil 20 mg tablet 2024 025 [facility] #[id number], [address], [place], [place], [id number], 5 11:12:08 clindamycin HCl 300 mg capsule 2023 024 [email or web address] [facility] #[id number], [address], [place], [place], [id number], 10:59:34 Patient TargetsNo targets recorded. Patient Instructions Encounter Date Encounter Id Patient Instructions Last Modified By Organization Details Last Modified Time 04/29/2023 [id number] Follow-up hypertension-paroxy smal atrial fibrillation-chroni c pain syndrome. Clinically stable. No interval complaints of any new problems. Does not need any blood work performed at this time With exception of a PSA. Will continue on current Rx and follow-up in six months. FDA recommendations of a influenza, RSV, COVID, pneumococcal immunizations strongly advised. Portions of the record may have been created with voice recognition software. Occasional wrong-word or s ound-a-like substitutions may have occurred due to the inherent limitations of voice recognition software. Read the chart carefully and recognize, using context, where substitutions have occurred. [email or web address] Not available 04/29/2023 12:09:48 11/15/2023 [id number] dementia rating scale-2* Not available 11/15/2023 12:15:34 alcohol misuse* [email or web address] Not available 11/15/2023 12:15:34 depression screening* [email or web address] Not available 11/15/2023 12:15:34 Timed Up and Go test (TUG)* [email or web address] Not available 11/15/2023 12:15:33 multi-dimensiona l health assessment questionnaire* [email or web address] Not available 11/15/2023 12:15:34 Personalized [facility] Plan and Screening Recommendations Advance Directives - Do you have one? No You have indicated that you are capable of preparing your advance care directive I recommend consulting with an Fondant Machine Operator, family member, or friend to assist you. Not interested at this time Advance Directives - Do we have your advance directive on file in your health record? Primary Prevention/Interven tion (prevents or decreases the chance of common diseases from occurring) Smoking Risk: Non Smoker Alcohol Misuse Screening: Negative Weight: Appropriate Physical activity: Need more exercise/physical activity Nutrition: Average Refer to attached handout Heart-Healthy Diet: After Your Visit Refer to attached handout DASH Diet: After Your Visit Recommend consultation with a book author Eat heart healthy diet Fall Risk (screened today): Low Vaccines Pneumococcal: No further needed Influenza: Your next one in the fall of this year Chronic Disease Risks Stroke: Intermediate Risk Active diagnosis, Continue current treatment plan Heart Attack: Intermediate Risk Active diagnosis, Continue current treatment plan Clogging of the Arteries: Intermediate Risk Active diagnosis, Continue current treatment plan Diabetes: Low Risk I have no recommendations Secondary Prevention/Interven tion (detects treatable diseases before they may cause symptoms, disability, or ) Prostate Cancer Screening: Your next PSA in: No PSA screening necessary up to date Colon Cancer Screening: Colonoscopy In: Ordered Recomme nded Recommended today, but you have declined No screening necessary due 2025 Date Screening Last Performed: __2020___ Eye Disease Screening: Ordered Recommended today Recommended today, but you have declined No Eye exam necessary Your next exam in: goes yearly Dementia Risk: Low I have no recommendations Depression Screening: Negative Recommend additional evaluation and/or treatment as noted above Recommend follow appointment to further evaluate Recommend Behavioral Health referral Active diagnosis, Continue current treatment plan I have no recommendations [email or web address] Not available 11/15/2023 11:57:34 [facility] risk assessment stable. Follow-up for hypertension, paroxysmal atrial fibrillation, GERD as well as chronic pain syndrome all clinically stable. Will continue on current Rx check blood work in the form of CBC, CMP, lipid, thyroid, B12 and magnesium level. Continue on current Rx follow-up in six months Next Appointment: 6 Months Approximate Date: 05/13/2024 Portions of the record may have been created with voice recognition software. Occasional wrong-word or s ound-a-like substitutions may have occurred due to the inherent limitations of voice recognition software. Read the chart carefully and recognize, using context, where substitutions have occurred. [email or web address] Not available 11/15/2023 12:15:17 11/29/2023 [id number] Wound left leg. Plan to obtain a x-ray of the foot. Will cover with some clindamycin and recheck the wound back in approximately one week. Additional Orders and/or Directives: 1. X-ray left foot Next Appointment: 1 Week Approximate Date: 12/06/2023 Portions of the record may have been created with voice recognition software. Occasional wrong-word or s ound-a-like substitutions may have occurred due to the inherent limitations of voice recognition software. Read the chart carefully and recognize, using context, where substitutions have occurred. [email or web address] Not available 11/29/2023 10:40:08 05/29/2024 [id number] Follow-up for hypertension, paroxysmal atrial fibrillation, GERD as well as chronic pain syndrome. Check blood work in the form of CBC, CMP, lipid, thyroid,B12, Magnesium and PSA. Also check a urine drug screen. Is clinically doing well otherwise. If instructed the patient I do not want him to increase the dosage of his alprazolam keep it 0.5 mg q.i.d.. Follow-up in four months Follow Up: 4 Months Approximate Date: 09/26/2024 Portions of the record may have been created with voice recognition software. Occasional wrong-word or s ound-a-like substitutions may have occurred due to the inherent limitations of voice recognition software. Read the chart carefully and recognize, using context, where substitutions have occurred. Created: Penelope Hickman M.D. 05.29.2024 10:13 AM [email or web address] Not available 05/29/2024 11:13:42 06/26/2024 [id number] prescribed dexamethasone Elixer for mouth ulcer to be used twice a day for 5 days. successfully irrigated left ear for cerumen impaction. Follow up as needed. [email or web address] Not available 06/26/2024 11:56:18 Reason for Referral None Reported. Results Created Date Observation Date Name Description Value Unit Range Abnormal Flag Note LastModifiedBy Organization Detail LastModifiedTime 05/17/19 24 05/18/2023 PSA, TOTAL PSA, total 0.22 NG/mL < or = 4.00 normal The total PSA value from this assay syste m is stand ardiz ed again st the WHO stand anthony. The test resul t will be appro ximat antonio 20% lower when fuad red to the equim olar- stand ardiz ed total PSA (Dia man Coult er). Fuad rison of seria l PSA resul ts shoul d be inter prete d with this fact in mind. This test was perfo rmed using the [employer] chemi lumin escen t metho d. Value s obtai isaías from diffe rent assay metho ds canno t be used inter yobani canela . PSA level s, regar dless of value , shoul d not be inter prete d as absol [place] evide nce of the prese nce or absen ce of disea se. Not Available [address], [address], 05/18/2023 07:25:59 12/01/19 24 12/02/2023 LIPID PANEL , STAND ANTHONY cholesterol, total 156 mg/dL <200 normal Not Available [address], [address], 12/02/2023 08:46:18 12/01/19 24 12/02/2023 LIPID PANEL , STAND ANTHONY HDL cholesterol 63 mg/dL > or = 40 normal Not Available [address], [address], 12/02/2023 08:46:18 12/01/19 24 12/02/2023 LIPID PANEL , STAND ANTHONY triglyceride s 36 mg/dL <150 normal Not Available [address], [address], 12/02/2023 08:46:18 12/01/1912/02/2023 LIPID PANEL , STAND ANTHONY LDL-choleste rol 83 mg/dL _(sachi c) normal Refer ence range : <100 Omar able range <100 mg/dL for prima ry preve ntion ; <70 mg/dL for patie nts with CHD or diabe tic patie nts with > or = 2 CHD risk facto rs. LDL-C is now calcu lated using the Awilda n-Hop kins calcu latnehemiah n, which is a valid ated novel metho d aidee finnegan than the Fried pili equat ion in the estim ation of LDL-C . Awilda lemus SS et al. RAMONE. 2013; 310(1 9): 2061- 2068 (http ://ed ucati on.Qu estDi Grama V[employer]. com/f aq/FA Q164) Not Available [address], [address], 12/02/2023 08:46:18 12/01/19 24 12/02/2023 LIPID PANEL , STAND ANTHONY chol/HDLC ratio 2.5 (calc ) <5.0 normal Not Available [address], [address], 12/02/2023 08:46:18 12/01/19 24 12/02/2023 LIPID PANEL , STAND ANTHONY non HDL cholesterol 93 mg/dL _(sachi c) <130 normal For patie nts with diabe rubén plus 1 major ASCVD risk facto r, treat ing to a non-H DL-C goal of <100 mg/dL (LDL- C of <70 mg/dL ) is consi geraldine a darrel sales c optio n. Not Available [address], [address], 12/02/2023 08:46:18 12/01/19 24 12/02/2023 MAGNE SIUM magnesium 2.0 mg/dL 1.5-2. 5 normal Not Available [address], [address], 12/02/2023 08:46:18 12/01/19 24 12/02/2023 COMPR EHENS LUIS METAB OLIC PANEL glucose 87 mg/dL 65-99 normal Fasti ng refer ence inter daniela Not Available [address], [address], 12/02/2023 08:46:19 12/01/19 24 12/02/2023 COMPR EHENS LUIS METAB OLIC PANEL urea nitrogen (BUN) 18 mg/dL 7-25 normal Not Available [address], [address], 12/02/2023 08:46:19 12/01/19 24 12/02/2023 COMPR EHENS LUIS METAB OLIC PANEL creatinine 0.80 mg/dL 0.70-1 .28 normal Not Available [address] [place] [address] [place], [address], 12/02/2023 08:46:19 12/01/19 24 12/02/2023 COMPR EHENS LUIS METAB OLIC PANEL eGFR 92 mL/mi n/1.7 3m2 > or = 60 normal Not Available [address], [address], 12/02/2023 08:46:19 12/01/19 24 12/02/2023 COMPR EHENS LUIS METAB OLIC PANEL BUN/creatini ne ratio SEE NOTE: (calc ) 6-22 Not Repor sandi: BUN and Creat inine are withi n refer ence range . Not Available [address], [address], 12/02/2023 08:46:19 12/01/19 24 12/02/2023 COMPR EHENS LUIS METAB OLIC PANEL sodium 133 mmol/ L 135-14 6 low Not Available [address], [address], 12/02/2023 08:46:19 12/01/19 24 12/02/2023 COMPR EHENS LUIS METAB OLIC PANEL potassium 4.6 mmol/ L 3.5-5. 3 normal Not Available [address], [address], 12/02/2023 08:46:19 12/01/19 24 12/02/2023 COMPR EHENS LUIS METAB OLIC PANEL chloride 98 mmol/ L 98-110 normal Not Available [address], [address], 12/02/2023 08:46:19 12/01/19 24 12/02/2023 COMPR EHENS LUIS METAB OLIC PANEL carbon dioxide 28 mmol/ L 20-32 normal Not Available [address] [address] [place], [address], 12/02/2023 08:46:19 12/01/19 24 12/02/2023 COMPR EHENS LUIS METAB OLIC PANEL calcium 9.0 mg/dL 8.6-10 .3 normal Not Available [address], [address], 12/02/2023 08:46:19 12/01/19 24 12/02/2023 COMPR EHENS LUIS METAB OLIC PANEL protein, total 6.7 g/dL 6.1-8. 1 normal Not Available [address], [address], 12/02/2023 08:46:19 12/01/19 24 12/02/2023 COMPR EHENS LUIS METAB OLIC PANEL albumin 4.5 g/dL 3.6-5. 1 normal Not Available [address], [address], 12/02/2023 08:46:19 12/01/19 24 12/02/2023 COMPR EHENS LUIS METAB OLIC PANEL globulin 2.2 g/dL_ (calc ) 1.9-3. 7 normal Not Available [address], [address], 12/02/2023 08:46:19 12/01/19 24 12/02/2023 COMPR EHENS LUIS METAB OLIC PANEL albumin/glob ulin ratio 2.0 (calc ) 1.0-2. 5 normal Not Available [address], [address], 12/02/2023 08:46:19 12/01/19 24 12/02/2023 COMPR EHENS LUIS METAB OLIC PANEL bilirubin, total 0.6 mg/dL 0.2-1. 2 normal Not Available [address], [address], 12/02/2023 08:46:19 12/01/19 24 12/02/2023 COMPR EHENS LUIS METAB OLIC PANEL alkaline phosphatase 57 U/L 35-144 normal Not Available [facility] [address], [address], 12/02/2023 08:46:19 12/01/19 24 12/02/2023 COMPR EHENS LUIS METAB OLIC PANEL AST 19 U/L 10-35 normal Not Available [address], [address], 12/02/2023 08:46:19 12/01/19 24 12/02/2023 COMPR EHENS LUIS METAB OLIC PANEL ALT 11 U/L 9-46 normal Not Available [address], [address], 12/02/2023 08:46:19 12/01/19 24 12/02/2023 CBC (INCL UDES DIFF/ PLT) white blood cell count 5.6 thous and/u L 3.8-10 .8 normal Not Available [address], [address], 12/02/2023 08:46:19 12/01/19 24 12/02/2023 CBC (INCL UDES DIFF/ PLT) red blood cell count 3.41 franklin on/uL 4.20-5 .80 low Not Available [address], [address], 12/02/2023 08:46:19 12/01/19 24 12/02/2023 CBC (INCL UDES DIFF/ PLT) hemoglobin 11.2 g/dL 13.2-1 7.1 low Not Available [facility] [address], [address], 12/02/2023 08:46:19 12/01/19 24 12/02/2023 CBC (INCL UDES DIFF/ PLT) hematocrit 34.3 % 38.5-5 0.0 low Not Available [facility] [address] [place], [address], 12/02/2023 08:46:19 12/01/19 24 12/02/2023 CBC (INCL UDES DIFF/ PLT) MCV 100.6 fL 80.0-1 00.0 high Not Available [address], [address], 12/02/2023 08:46:19 12/01/19 24 12/02/2023 CBC (INCL UDES DIFF/ PLT) MCH 32.8 pg 27.0-3 3.0 normal Not Available [facility] [address], [address], 12/02/2023 08:46:19 12/01/19 24 12/02/2023 CBC (INCL UDES DIFF/ PLT) MCHC 32.7 g/dL 32.0-3 6.0 normal Not Available [address], [address], 12/02/2023 08:46:19 12/01/19 24 12/02/2023 CBC (INCL UDES DIFF/ PLT) RDW 12.7 % 11.0-1 5.0 normal Not Available [address], [address], 12/02/2023 08:46:19 12/01/19 24 12/02/2023 CBC (INCL UDES DIFF/ PLT) platelet count 214 thous and/u L 140-40 0 normal Not Available [address], [address], 12/02/2023 08:46:19 12/01/19 24 12/02/2023 CBC (INCL UDES DIFF/ PLT) MPV 11.5 fL 7.5-12 .5 normal Not Available [facility] [address], [address], 12/02/2023 08:46:19 12/01/19 24 12/02/2023 CBC (INCL UDES DIFF/ PLT) absolute neutrophils 2111 cells /uL 1500-7 800 normal Not Available [address], [address], 12/02/2023 08:46:19 12/01/19 24 12/02/2023 CBC (INCL UDES DIFF/ PLT) absolute lymphocytes 2442 cells /uL 850-39 00 normal Not Available [address], [address], 12/02/2023 08:46:19 12/01/19 24 12/02/2023 CBC (INCL UDES DIFF/ PLT) absolute monocytes 795 cells /uL 200-95 0 normal Not Available [address], [address], 12/02/2023 08:46:19 12/01/19 24 12/02/2023 CBC (INCL UDES DIFF/ PLT) absolute eosinophils 179 cells /uL 15-500 normal Not Available [address], [address], 12/02/2023 08:46:19 12/01/19 24 12/02/2023 CBC (INCL UDES DIFF/ PLT) absolute basophils 73 cells /uL 0-200 normal Not Available [address], [address], 12/02/2023 08:46:19 12/01/19 24 12/02/2023 CBC (INCL UDES DIFF/ PLT) neutrophils 37.7 % normal Not Available [address], [address], 12/02/2023 08:46:19 12/01/19 24 12/02/2023 CBC (INCL UDES DIFF/ PLT) lymphocytes 43.6 % normal Not Available [address], [address], 12/02/2023 08:46:19 12/01/19 24 12/02/2023 CBC (INCL UDES DIFF/ PLT) monocytes 14.2 % normal Not Available [address], [address], 12/02/2023 08:46:19 12/01/19 24 12/02/2023 CBC (INCL UDES DIFF/ PLT) eosinophils 3.2 % normal Not Available [address], [address], 12/02/2023 08:46:19 12/01/19 24 12/02/2023 CBC (INCL UDES DIFF/ PLT) basophils 1.3 % normal Not Available [address], [address], 12/02/2023 08:46:19 12/01/1912/02/2023 VITAM IN B12 vitamin B12 596 pg/mL 200-11 00 normal Not Available [address], [address], 12/02/2023 08:46:20 12/01/1912/02/2023 T4, FREE T4, free 1.3 NG/dL 0.8-1. 8 normal Not Available [address], [address], 12/02/2023 08:46:20 12/01/1912/02/2023 TSH TSH 1.56 mIU/L 0.40-4 .50 normal Not Available [address], [address], 12/02/2023 08:46:20 12/07/19 24 12/07/2023 CBC/C OMPLE TE BLD COUNT W/DIF F white blood cells 4.6 x10'3 /uL 4.2-10 .8 Not Available [facility] (Lab) [address] [place], [address], 12/07/2023 10:59:47 12/07/19 24 12/07/2023 CBC/C OMPLE TE BLD COUNT W/DIF F red blood cells 3.19 x10'6 /uL 4.10-5 .80 low Not Available [facility] (Lab) [address] [place], [address], 12/07/2023 10:59:47 12/07/19 24 12/07/2023 CBC/C OMPLE TE BLD COUNT W/DIF F hemoglobin 10.7 g/dL 13.2-1 7.0 low Not Available [facility] (Lab) [address] [place], [address], 12/07/2023 10:59:47 12/07/19 24 12/07/2023 CBC/C OMPLE TE BLD COUNT W/DIF F hematocrit 32.2 % 39.3-5 0.0 low Not Available [facility] (Lab) [address] [place], [address], 12/07/2023 10:59:47 12/07/19 24 12/07/2023 CBC/C OMPLE TE BLD COUNT W/DIF F mean red cell volume 100.9 fL 80.0-9 7.0 high Not Available [facility] (Lab) [address] [place], [address], 12/07/2023 10:59:47 12/07/19 24 12/07/2023 CBC/C OMPLE TE BLD COUNT W/DIF F mean red cell hemoglobin 33.5 pg 27.0-3 3.0 high Not Available [facility] (Lab) [address] [place], [address], 12/07/2023 10:59:47 12/07/19 24 12/07/2023 CBC/C OMPLE TE BLD COUNT W/DIF F mean RBC HGB concentratio n 33.2 g/dL 31.0-3 6.0 Not Available [facility] (Lab) [address] [place], [address], 12/07/2023 10:59:47 12/07/1912/07/2023 CBC/C OMPLE TE BLD COUNT W/DIF F red cell distribution width 14.0 % 11.8-1 5.5 Not Available [facility] (Lab) [address] [place], [address], 12/07/2023 10:59:47 12/07/19 24 12/07/2023 CBC/C OMPLE TE BLD COUNT W/DIF F platelets 155 x10'3 /uL 150-40 0 Not Available [facility] (Lab) [address] [place], [address], 12/07/2023 10:59:47 12/07/1912/07/2023 CBC/C OMPLE TE BLD COUNT W/DIF F mean platelet volume 11.6 fL 9.0-12 .4 Not Available [facility] (Lab) [address] [place], [address], 12/07/2023 10:59:47 12/07/19 24 12/07/2023 CBC/C OMPLE TE BLD COUNT W/DIF F neutrophils 35.6 % 39.0-7 2.0 low Not Available [facility] (Lab) [address] [place], [address], 12/07/2023 10:59:47 12/07/19 24 12/07/2023 CBC/C OMPLE TE BLD COUNT W/DIF F lymphocytes 41.1 % 16.0-4 7.0 Not Available [facility] (Lab) [address] [place], [address], 12/07/2023 10:59:47 12/07/19 24 12/07/2023 CBC/C OMPLE TE BLD COUNT W/DIF F monocytes 16.9 % 5.0-12 .0 high Not Available [facility] (Lab) [address] [place], [address], 12/07/2023 10:59:47 12/07/1912/07/2023 CBC/C OMPLE TE BLD COUNT W/DIF F eosinophils 5.1 % 1.0-7. 0 Not Available [facility] (Lab) [address] [place], [address], 12/07/2023 10:59:47 12/07/1912/07/2023 CBC/C OMPLE TE BLD COUNT W/DIF F basophils 1.1 % 0.0-2. 0 Not Available [facility] (Lab) [address] [place], [address], 12/07/2023 10:59:47 12/07/1912/07/2023 CBC/C OMPLE TE BLD COUNT W/DIF F immature granulocytes 0.2 % 0.00-0 .50 Not Available [facility] (Lab) [address] [place], [address], 12/07/2023 10:59:47 12/07/19 24 12/07/2023 CBC/C OMPLE TE BLD COUNT W/DIF F neutrophils, absolute count 1.62 x10'3 /uL 1.5-8. 0 Not Available [facility] (Lab) [address] [place], [address], 12/07/2023 10:59:47 12/07/19 24 12/07/2023 CBC/C OMPLE TE BLD COUNT W/DIF F lymphocytes, absolute count 1.87 x10'3 /uL 1.07-3 .43 Not Available [facility] (Lab) [address] [place], [address], 12/07/2023 10:59:47 12/07/19 24 12/07/2023 CBC/C OMPLE TE BLD COUNT W/DIF F monocytes, absolute count 0.77 x10'3 /uL 0.29-0 .99 Not Available [facility] (Lab) [address] [place], [address], 12/07/2023 10:59:47 12/07/19 24 12/07/2023 CBC/C OMPLE TE BLD COUNT W/DIF F eosinophils, absolute count 0.23 x10'3 /uL 0.02-0 .53 Not Available [facility] (Lab) [address] [place], [address], 12/07/2023 10:59:47 12/07/19 24 12/07/2023 CBC/C OMPLE TE BLD COUNT W/DIF F basophils, absolute count 0.05 x10'3 /uL 0.01-0 .08 Not Available [facility] (Lab) [address] [place], [address], 12/07/2023 10:59:47 12/07/19 24 12/07/2023 CBC/C OMPLE TE BLD COUNT W/DIF F immature granulocytes ,absolute 0.01 x10'3 /uL 0.00-0 .05 Not Available [facility] (Lab) [address] [place], [address], 12/07/2023 10:59:47 12/07/19 24 12/07/2023 CBC/C OMPLE TE BLD COUNT W/DIF F nucleated red blood cells 0.0 % -0 Not Available [facility] (Lab) [address] [place], [address], 12/07/2023 10:59:47 12/07/19 24 12/07/2023 CBC/C OMPLE TE BLD COUNT W/DIF F NRBC# 0.00 x10'3 /uL Not Available [facility] (Lab) [address] [place], [address], 12/07/2023 10:59:47 12/07/19 24 12/07/2023 IRON/ TIBC PANEL total iron binding capacity 346 mcg/d L 265-47 5 Not Available [facility] (Lab) [address] [place], [address], 12/07/2023 13:19:50 12/07/19 24 12/07/2023 IRON/ TIBC PANEL % transferrin saturation 25 % 20-55 Not Available [facility] (Lab) [address] [place], [address], 12/07/2023 13:19:50 12/07/19 24 12/07/2023 IRON/ TIBC PANEL unsaturated iron bind capacity 260 mcg/d L 126-38 2 Not Available [facility] (Lab) [address] [place], [address], 12/07/2023 13:19:50 12/07/19 24 12/07/2023 IRON/ TIBC PANEL iron 86 mcg/d L 42-175 Not Available [facility] (Lab) [address] [place], [address], 12/07/2023 13:19:50 12/07/1912/07/2023 TYRESE TIN ferritin 49 NG/mL 17.9-4 64 Not Available [facility] (Lab) [address] [place], [address], 12/07/2023 13:26:01 05/04/20 24 05/04/2024 CBC/C OMPLE TE BLD COUNT W/DIF F white blood cells 6.7 x10'3 /uL 4.2-10 .8 Not Available [facility] (Lab) [address] [place], [address], 05/04/2024 17:07:26 05/04/20 24 05/04/2024 CBC/C OMPLE TE BLD COUNT W/DIF F red blood cells 3.44 x10'6 /uL 4.10-5 .80 low Not Available [facility] (Lab) [address] [place], [address], 05/04/2024 17:07:26 05/04/20 24 05/04/2024 CBC/C OMPLE TE BLD COUNT W/DIF F hemoglobin 11.4 g/dL 13.2-1 7.0 low Not Available [facility] (Lab) [address] [place], [address], 05/04/2024 17:07:26 05/04/20 24 05/04/2024 CBC/C OMPLE TE BLD COUNT W/DIF F hematocrit 34.2 % 39.3-5 0.0 low Not Available [facility] (Lab) [address] [place], [address], 05/04/2024 17:07:26 05/04/20 24 05/04/2024 CBC/C OMPLE TE BLD COUNT W/DIF F mean red cell volume 99.4 fL 80.0-9 7.0 high Not Available [facility] (Lab) [address] [place], [address], 05/04/2024 17:07:26 05/04/20 24 05/04/2024 CBC/C OMPLE TE BLD COUNT W/DIF F mean red cell hemoglobin 33.1 pg 27.0-3 3.0 high Not Available [facility] (Lab) [address] [place], [address], 05/04/2024 17:07:26 05/04/20 24 05/04/2024 CBC/C OMPLE TE BLD COUNT W/DIF F mean RBC HGB concentratio n 33.3 g/dL 31.0-3 6.0 Not Available [facility] (Lab) [address] [place], [address], 05/04/2024 17:07:26 05/04/20 24 05/04/2024 CBC/C OMPLE TE BLD COUNT W/DIF F red cell distribution width 13.3 % 11.8-1 5.5 Not Available [facility] (Lab) [address] [place], [address], 05/04/2024 17:07:26 05/04/20 24 05/04/2024 CBC/C OMPLE TE BLD COUNT W/DIF F platelets 177 x10'3 /uL 150-40 0 Not Available [facility] (Lab) [address] [place], [address], 05/04/2024 17:07:26 05/04/20 24 05/04/2024 CBC/C OMPLE TE BLD COUNT W/DIF F mean platelet volume 12.4 fL 9.0-12 .4 Not Available [facility] (Lab) [address] [place], [address], 05/04/2024 17:07:26 05/04/20 24 05/04/2024 CBC/C OMPLE TE BLD COUNT W/DIF F neutrophils 48.8 % 39.0-7 2.0 Not Available [facility] (Lab) [address] [place], [address], 05/04/2024 17:07:26 05/04/20 24 05/04/2024 CBC/C OMPLE TE BLD COUNT W/DIF F lymphocytes 23.0 % 16.0-4 7.0 Not Available [facility] (Lab) [address] [place], [address], 05/04/2024 17:07:26 05/04/20 24 05/04/2024 CBC/C OMPLE TE BLD COUNT W/DIF F monocytes 16.8 % 5.0-12 .0 high Not Available [facility] (Lab) [address] [place], [address], 05/04/2024 17:07:26 05/04/20 24 05/04/2024 CBC/C OMPLE TE BLD COUNT W/DIF F eosinophils 10.1 % 1.0-7. 0 high Not Available [facility] (Lab) [address] [place], [address], 05/04/2024 17:07:26 05/04/20 24 05/04/2024 CBC/C OMPLE TE BLD COUNT W/DIF F basophils 1.2 % 0.0-2. 0 Not Available [facility] (Lab) [address] [place], [address], 05/04/2024 17:07:26 05/04/20 24 05/04/2024 CBC/C OMPLE TE BLD COUNT W/DIF F immature granulocytes 0.1 % 0.00-0 .50 Not Available [facility] (Lab) [address] [place], [address], 05/04/2024 17:07:26 05/04/20 24 05/04/2024 CBC/C OMPLE TE BLD COUNT W/DIF F neutrophils, absolute count 3.28 x10'3 /uL 1.5-8. 0 Not Available [facility] (Lab) [address] [place], [address], 05/04/2024 17:07:26 05/04/20 24 05/04/2024 CBC/C OMPLE TE BLD COUNT W/DIF F lymphocytes, absolute count 1.55 x10'3 /uL 1.07-3 .43 Not Available [facility] (Lab) [address] [place], [address], 05/04/2024 17:07:26 05/04/20 24 05/04/2024 CBC/C OMPLE TE BLD COUNT W/DIF F monocytes, absolute count 1.13 x10'3 /uL 0.29-0 .99 high Not Available [facility] (Lab) [address] [place], [address], 05/04/2024 17:07:26 05/04/20 24 05/04/2024 CBC/C OMPLE TE BLD COUNT W/DIF F eosinophils, absolute count 0.68 x10'3 /uL 0.02-0 .53 high Not Available [facility] (Lab) [address] [place], [address], 05/04/2024 17:07:26 05/04/20 24 05/04/2024 CBC/C OMPLE TE BLD COUNT W/DIF F basophils, absolute count 0.08 x10'3 /uL 0.01-0 .08 Not Available [facility] (Lab) [address] [place], [address], 05/04/2024 17:07:26 05/04/20 24 05/04/2024 CBC/C OMPLE TE BLD COUNT W/DIF F immature granulocytes ,absolute 0.01 x10'3 /uL 0.00-0 .05 Not Available [facility] (Lab) [address] [place], [address], 05/04/2024 17:07:26 05/04/20 24 05/04/2024 CBC/C OMPLE TE BLD COUNT W/DIF F nucleated red blood cells 0.0 % -0 Not Available [facility] (Lab) [address] [place], [address], 05/04/2024 17:07:26 05/04/20 24 05/04/2024 CBC/C OMPLE TE BLD COUNT W/DIF F NRBC# 0.00 x10'3 /uL Not Available [facility] (Lab) [address] [place], [address], 05/04/2024 17:07:26 06/04/19 25 06/07/2024 LIPID PANEL , STAND ANTHONY cholesterol, total 170 mg/dL <200 normal Not Available [facility] [address] [address] [place], [address], 06/07/2024 02:16:12 06/04/19 06/07/2024 LIPID PANEL , STAND ANTHONY HDL cholesterol 69 mg/dL > or = 40 normal Not Available [address], [address], 06/07/2024 02:16:12 06/04/1906/07/2024 LIPID PANEL , STAND ANTHONY triglyceride s 45 mg/dL <150 normal Not Available [address], [address], 06/07/2024 02:16:12 06/04/1906/07/2024 LIPID PANEL , STAND ANTHONY LDL-choleste rol 88 mg/dL _(sachi c) normal Refer ence range : <100 Omar able range <100 mg/dL for prima ry preve ntion ; <70 mg/dL for patie nts with CHD or diabe tic patie nts with > or = 2 CHD risk facto rs. LDL-C is now calcu lated using the Awilda lemus-Hop kins calcu myra n, which is a valid ated novel metho d provi ding mike r accur acy than the Fried pili equat ion in the estim ation of LDL-C . Awilda lemus SS et al. RAMONE. 2013; 310(1 9): 2061- 2068 (http ://ed ucati on.[employer]. com/f aq/FA Q164) Not Available [address], [address], 06/07/2024 02:16:12 06/04/1906/07/2024 LIPID PANEL , STAND ANTHONY chol/HDLC ratio 2.5 (calc ) <5.0 normal Not Available [address], [address], 06/07/2024 02:16:12 06/04/19 25 06/07/2024 LIPID PANEL , STAND ANTHONY non HDL cholesterol 101 mg/dL _(sachi c) <130 normal For patie nts with diabe rubén plus 1 major ASCVD risk facto r, treat ing to a non-H DL-C goal of <100 mg/dL (LDL- C of <70 mg/dL ) is consi dered a thera peuti c optio n. Not Available [address], [address], 06/07/2024 02:16:12 06/04/1906/07/2024 MAGNE SIUM magnesium 2.0 mg/dL 1.5-2. 5 normal Not Available [address], [address], 06/07/2024 02:16:15 06/04/1906/07/2024 COMPR EHENS LUIS METAB OLIC PANEL glucose 100 mg/dL 65-99 high Fasti ng refer ence inter daniela For someo ne witho ut known diabe rubén, a gluco se value betwe en 100 and 125 mg/dL is consi stent with predi abete s and shoul d be confi rmed with a follo w-up test. Not Available [address], [address], 06/07/2024 02:16:16 06/04/19 25 06/07/2024 COMPR EHENS LUIS METAB OLIC PANEL urea nitrogen (BUN) 26 mg/dL 7-25 high Not Available [address], [address], 06/07/2024 02:16:16 06/04/19 25 06/07/2024 COMPR EHENS LUIS METAB OLIC PANEL creatinine 0.97 mg/dL 0.70-1 .28 normal Not Available [address], [address], 06/07/2024 02:16:16 06/04/19 25 06/07/2024 COMPR EHENS LUIS METAB OLIC PANEL eGFR 81 mL/mi n/1.7 3m2 > or = 60 normal Not Available [address] [place], [address], 06/07/2024 02:16:16 06/04/19 25 06/07/2024 COMPR EHENS LUIS METAB OLIC PANEL BUN/creatini ne ratio 27 (calc ) 6-22 high Not Available [address], [address], 06/07/2024 02:16:16 06/04/19 25 06/07/2024 COMPR EHENS LUIS METAB OLIC PANEL sodium 134 mmol/ L 135-14 6 low Not Available [address], [address], 06/07/2024 02:16:16 06/04/19 25 06/07/2024 COMPR EHENS LUIS METAB OLIC PANEL potassium 4.5 mmol/ L 3.5-5. 3 normal Not Available [address], [address], 06/07/2024 02:16:16 06/04/19 25 06/07/2024 COMPR EHENS LUIS METAB OLIC PANEL chloride 98 mmol/ L 98-110 normal Not Available [address], [address], 06/07/2024 02:16:16 06/04/19 25 06/07/2024 COMPR EHENS LUIS METAB OLIC PANEL carbon dioxide 33 mmol/ L 20-32 high Not Available [address], [address], 06/07/2024 02:16:16 06/04/19 25 06/07/2024 COMPR EHENS LUIS METAB OLIC PANEL calcium 9.2 mg/dL 8.6-10 .3 normal Not Available [address], [address], 06/07/2024 02:16:16 06/04/19 25 06/07/2024 COMPR EHENS LUIS METAB OLIC PANEL protein, total 6.7 g/dL 6.1-8. 1 normal Not Available [address], [address], 06/07/2024 02:16:16 06/04/19 25 06/07/2024 COMPR EHENS LUIS METAB OLIC PANEL albumin 4.5 g/dL 3.6-5. 1 normal Not Available [address], [address], 06/07/2024 02:16:16 06/04/19 25 06/07/2024 COMPR EHENS LUIS METAB OLIC PANEL globulin 2.2 g/dL_ (calc ) 1.9-3. 7 normal Not Available [address], [address], 06/07/2024 02:16:16 06/04/19 25 06/07/2024 COMPR EHENS LUIS METAB OLIC PANEL albumin/glob ulin ratio 2.0 (calc ) 1.0-2. 5 normal Not Available [address], [address], 06/07/2024 02:16:16 06/04/19 25 06/07/2024 COMPR EHENS LUIS METAB OLIC PANEL bilirubin, total 0.5 mg/dL 0.2-1. 2 normal Not Available [address], [address], 06/07/2024 02:16:16 06/04/19 25 06/07/2024 COMPR EHENS LUIS METAB OLIC PANEL alkaline phosphatase 53 U/L 35-144 normal Not Available [facility] [employer] [address], [address], 06/07/2024 02:16:16 06/04/19 25 06/07/2024 COMPR EHENS LUIS METAB OLIC PANEL AST 18 U/L 10-35 normal Not Available [address] [place], [address], 06/07/2024 02:16:16 06/04/19 25 06/07/2024 COMPR EHENS LUIS METAB OLIC PANEL ALT 11 U/L 9-46 normal Not Available [address], [address], 06/07/2024 02:16:16 06/04/19 25 06/07/2024 CBC (INCL UDES DIFF/ PLT) white blood cell count 4.5 thous and/u L 3.8-10 .8 normal Not Available [address], [address], 06/07/2024 02:16:17 06/04/19 25 06/07/2024 CBC (INCL UDES DIFF/ PLT) red blood cell count 3.40 franklin on/uL 4.20-5 .80 low Not Available [address], [address], 06/07/2024 02:16:17 06/04/19 25 06/07/2024 CBC (INCL UDES DIFF/ PLT) hemoglobin 10.9 g/dL 13.2-1 7.1 low Not Available [address], [address], 06/07/2024 02:16:17 06/04/1906/07/2024 CBC (INCL UDES DIFF/ PLT) hematocrit 34.3 % 38.5-5 0.0 low Not Available [facility] [address], [address], 06/07/2024 02:16:17 06/04/19 25 06/07/2024 CBC (INCL UDES DIFF/ PLT) MCV 100.9 fL 80.0-1 00.0 high Not Available [facility] [address], [address], 06/07/2024 02:16:17 06/04/19 25 06/07/2024 CBC (INCL UDES DIFF/ PLT) MCH 32.1 pg 27.0-3 3.0 normal Not Available [address], [address], 06/07/2024 02:16:17 06/04/19 25 06/07/2024 CBC (INCL UDES DIFF/ PLT) MCHC 31.8 g/dL 32.0-3 6.0 low For adult s, a sligh t decre ase in the calcu lated MCHC value (in the range of 30 to 32 g/dL) is most likel y not clini steve signi lauren t; emilia er, it shoul d be inter prete d with cauti on in [facility] n with other red cell sharmin eters and the patie nt's clini sachi condi tion. Not Available [address], [address], 06/07/2024 02:16:17 06/04/19 25 06/07/2024 CBC (INCL UDES DIFF/ PLT) RDW 12.6 % 11.0-1 5.0 normal Not Available [address], [address], 06/07/2024 02:16:17 06/04/19 25 06/07/2024 CBC (INCL UDES DIFF/ PLT) platelet count 206 thous and/u L 140-40 0 normal Not Available [address], [address], 06/07/2024 02:16:17 06/04/19 25 06/07/2024 CBC (INCL UDES DIFF/ PLT) MPV 11.9 fL 7.5-12 .5 normal Not Available [address], [address], 06/07/2024 02:16:17 06/04/19 25 06/07/2024 CBC (INCL UDES DIFF/ PLT) absolute neutrophils 1778 cells /uL 1500-7 800 normal Not Available [address], [address], 06/07/2024 02:16:17 06/04/19 25 06/07/2024 CBC (INCL UDES DIFF/ PLT) absolute lymphocytes 1746 cells /uL 850-39 00 normal Not Available [address], [address], 06/07/2024 02:16:17 06/04/19 25 06/07/2024 CBC (INCL UDES DIFF/ PLT) absolute monocytes 590 cells /uL 200-95 0 normal Not Available [address], [address], 06/07/2024 02:16:17 06/04/1906/07/2024 CBC (INCL UDES DIFF/ PLT) absolute eosinophils 329 cells /uL 15-500 normal Not Available [address], [address], 06/07/2024 02:16:17 06/04/1906/07/2024 CBC (INCL UDES DIFF/ PLT) absolute basophils 59 cells /uL 0-200 normal Not Available [address], [address], 06/07/2024 02:16:17 06/04/1906/07/2024 CBC (INCL UDES DIFF/ PLT) neutrophils 39.5 % normal Not Available [address], [address], 06/07/2024 02:16:17 06/04/1906/07/2024 CBC (INCL UDES DIFF/ PLT) lymphocytes 38.8 % normal Not Available [address], [address], 06/07/2024 02:16:17 06/04/1906/07/2024 CBC (INCL UDES DIFF/ PLT) monocytes 13.1 % normal Not Available [facility] [address] [address] [place], [address], 06/07/2024 02:16:17 06/04/19 25 06/07/2024 CBC (INCL UDES DIFF/ PLT) eosinophils 7.3 % normal Not Available [facility] [address] [address] [place], [address], 06/07/2024 02:16:17 06/04/19 25 06/07/2024 CBC (INCL UDES DIFF/ PLT) basophils 1.3 % normal Not Available [facility] [address], [address], 06/07/2024 02:16:17 06/04/19 25 06/07/2024 VITAM IN B12 vitamin B12 561 pg/mL 200-11 00 normal Not Available [facility] [address], [address], 06/07/2024 02:16:18 06/04/19 25 06/07/2024 PSA, TOTAL PSA, total 0.24 NG/mL < or = 4.00 normal The total PSA value from this assay syste m is stand ardiz ed again st the WHO stand anthony. The test resul t will be appro ximat antonio 20% lower when fuad red to the equim olar- stand ardiz ed total PSA (Dia man Coult er). Fuad rison of seria l PSA resul ts shoul d be inter prete d with this fact in mind. This test was perfo rmed using the Sieme ns chemi lumin escen t metho d. Value s obtai isaías from diffe rent assay metho ds canno t be used inter hilton eably . PSA level s, regar dless of value , shoul d not be inter prete d as absol [place] evide nce of the prese nce or absen ce of disea se. Not Available [facility] [address] [address] [place], [address], 06/07/2024 02:16:19 06/04/1906/07/2024 T4, FREE T4, free 1.3 NG/dL 0.8-1. 8 normal Not Available [address] [address] [address] , [place], [address], 06/07/2024 02:16:20 06/04/1906/07/2024 TSH TSH 1.44 mIU/L 0.40-4 .50 normal Not Available [address] [address] [address] , [place], [address], 06/07/2024 02:16:21 06/04/1906/07/2024 DRUG MONIT OR, BASE PANEL , SCREE N, URINE benzodiazepi samina POSITI VE NG/mL <100 abnormal See Note A See Note A Not Available [address] [address] [address] , [place], [address], 06/07/2024 02:16:22 06/04/1906/07/2024 DRUG MONIT OR, BASE PANEL , SCREE N, URINE cocaine metabolite NEGATI VE NG/mL <150 See Note A See Note A Not Available [address] [address] [address], [place], [address], 06/07/2024 02:16:22 06/04/1906/07/2024 DRUG MONIT OR, BASE PANEL , SCREE N, URINE opiates POSITI VE NG/mL <100 abnormal See Note A See Note A Not Available [address] [address] [address], [place], [address], 06/07/2024 02:16:22 06/04/1906/07/2024 DRUG MONIT OR, BASE PANEL , SCREE N, URINE oxycodone NEGATI VE NG/mL <100 See Note A See Note A Not Available [address] [address] [address], [place], [address], 06/07/2024 02:16:22 06/04/1906/07/2024 DRUG MONIT OR, BASE PANEL , SCREE N, URINE creatinine 42.5 mg/dL > or = 20.0 Not Available [address] [address] [place], [address], 06/07/2024 02:16:22 06/04/19 25 06/07/2024 DRUG MONIT OR, BASE PANEL , SCREE N, URINE pH 7.0 4.5-9. 0 Not Available [address] [address] [place], [address], 06/07/2024 02:16:22 06/04/1906/07/2024 DRUG MONIT OR, BASE PANEL , SCREE N, URINE oxidant NEGATI VE mcg/m L <200 Not Available [address] [place], [address], 06/07/2024 02:16:22 06/04/19 25 06/07/2024 DRUG MONIT OR, TRAMA DOL, QN, URINE desmethyltra madol NEGATI VE NG/mL <100 Not Available [address], [address], 06/07/2024 02:16:23 06/04/19 25 06/07/2024 DRUG MONIT OR, TRAMA DOL, QN, URINE tramadol NEGATI VE NG/mL <100 Not Available [address], [address], 06/07/2024 02:16:23 06/04/19 25 06/07/2024 DRUG MONIT OR, TRAMA DOL, QN, URINE tramadol comments See LDT Notes Not Available [address], [address], 06/07/2024 02:16:06/04/1906/07/2024 DRUG MONIT ORING TEMPL ATE notes and comments This drug testi ng is for medic al treat ment only. Alexandre sis was perfo rmed as non-f orens ic testi ng and these resul ts shoul d be used only by healt hcare provi ders to rende r diagn osis or treat ment, or to monit or progr ess of medic al condi tions . Note A: The resul ts are presu mptiv e; based only on scree maximino nico ds, and they have not been confi rmed by a defin itive nico gore. LDT Notes : Confi rmati on tests were devel oped and their alexandre tical perfo rmanc e huan cteri stics have been deter mined by [facility]. It has not been clear ed or appro lul by the FDA. This assay has been valid ated pursu ant to the CLIA regul ation s and is used for clini sachi purpo ses. Healt hcare Provi ders needi ng Inter preta tion rochelle tance , pleas e conta ct us at 1.877 .40.R XTOX (1.87 7.407 .9869 ) M-F, 8am to 10pm EST Not Available [facility] [address] [address] [place], [address], 06/07/2024 02:16:24 11/29/19 24 XR, foot, 3 or more view [facility] [address] [address] Patien t Name: TIMI GROSSMAN Access ion #: [id number] Sex: M : 1949 6 Dictat ed By: Theo Hinton Attend ing Physic pritesh: ROB HICKMAN CE Orderi ng Physic pritesh: ROB HICKMAN CE Exam Date: 2023 10:07 AM Exam Name: XR FOOT LT 3V+ Admitt ing Diagno sis(es ): CLINIC AL INDICA TION: left foot pain TECHNI QUE: 3 radiog raphic views of the left foot were obtain ed. Compar oli: None FINDIN GS/IMP RESSIO N: There is no eviden ce of acute fractu re or disloc ation. The visual ized joint space is well mainta ined. The alignm ent is anatom ical. There is no radiop aque foreig n body. Electr onical ly Signed by: Theo Hinton at 2023 10:57: 14 AM Page [address] (Imaging) [address], [place], [address], 11/29/2023 13:01:29 01/23/20 24 01/23/2024 US, echoc ardio gram No observ ation record ed. [address] [facility] [address], [place], [address], 01/23/2024 16:43:41 02/07/20 XR, shoul josephine, 2 or more view [facility] [address], [place] [address] [phone] Patien t Name: TIMI GROSSMAN Access ion #: [id number] Sex: M : 1949 1 Dictat ed By: Shaista beltrán Attend ing Physic pritesh: ROB HICKMAN CE Orderi Physic pritesh: ROB HICKMAN CE Exam Date: 2023 09:13 AM Exam Name: XR SHOULD ER LT 2V+ Admitt ing Diagno sis(es ): CLINIC AL INFORM ATION: 73 years old, Male; pain in the left should er. TECHNI QUE: 3 views of the to should er were obtain ed. COMPAR OLI: Prior radiog raphs dated 2019. FINDIN GS: Postsu rgical change s of prior left total should er arthro plasty . No eviden ce of acute prosth esis compli cation visual ized. No acute fractu re. Modera te arthri tic change s of the acromi oclavi cular joint, simila r to the prior exam. [place] ing soft tissue s are grossl y unrema rkable . IMPRES NANCY: Postsu rgical change s of left total should er arthro plasty with no eviden ce of acute prosth esis compli cation . No eviden ce of acute fractu re. Electr onical ly Signed by: Shaista beltrán at 2023 07:30: 08 AM Page [address] (Imaging) [address] [facility], [place], [address], 02/07/2024 12:36:35 02/07/20 XR, wrist , 3 or more view [facility] [address], [place] [address] Patien t Name: TIMI GROSSMAN Access ion #: [id number] Sex: M : 1949 1 Dictat ed By: Shaista beltrán Attend ing Physic pritesh: ROB HICKMAN CE Orderi ng Physic pritesh: ROB HICKMAN CE Exam Date: 2023 09:23 AM Exam Name: XR WRIST LT 3V+ Admitt ing Diagno sis(es ): CLINIC AL INFORM ATION: 73 years old, Male; pain left wrist. Report ed histor y of left wrist fractu re 25 years ago. TECHNI QUE: 4 views of the left wrist were obtain ed. COMPAR OLI: None FINDIN GS: No acute fractu re or disloc ation. There is positi ve ulnar varian ce. Chroni c ununit ed fractu re of the ulnar styloi d. Modera te to severe arthri tic change s at the radioc arpal joint and ulnoca rpal joint with joint space narrow ing, sclero sis, and subcho ndral cystic change . Mild-t o-mode rate arthri tic change s at the 1st carpom etacar pal joint and trisca phe joint with joint space narrow ing and sclero sis. Mild-t o-mode rate soft tissue swelli ng around the wrist. IMPRES NANCY: 1. No eviden ce of acute fractu re. 2. Arthri tic change s and nonacu te findin gs as detail ed above. Electr onical ly Signed by: Shaista beltrán at 2023 07:33: 13 AM Page [address] (Imaging) [address] [place], [address], 02/07/2024 12:36:35 04/24/20 24 04/24/2024 US, echoc ardio gram No observ ation record ed. [email or web address] [facility] [address], [place], [address], 04/25/2024 14:45:49 05/04/20 24 05/04/2024 XR, chest , 2 view [facility] [address] [place] [address] [phone] Patibella hamilton Name: TIMI GROSSMAN Access ion #: [id number] Sex: M : 1949 2 Dictat ed By: Theo Hinton Attend ing Physic pritesh: ROB HICKMAN CE Orderi ng Physic pritesh: ROB HICKMAN CE Exam Date: 2023 15:36 PM Exam Name: XR CHEST 2V Admitt ing Diagno sis(es ): XR CHEST 2V CLINIC AL HISTOR Y: cough COMPAR OLI: CHEST 2VIEW, ROUTIN E on DOS: TECHNI QUE: Fronta l and latera l view of the chest was obtain ed FINDIN GS: Lines and Tubes: None Lungs: No focal consol idatio n. Pleura : No effusi on. No pneumo thorax . Cardio medias tinal contou rs: Unrema rkable Bones: Left total should er arthro plasty . IMPRES NANCY: No acute cardio pulmon jorge diseas e. Electr onical ly Signed by: Theo Hinton at 2023 15:58: 14 PM Page [address] (Imaging) [address] [place], [address], 05/04/2024 17:02:58 09/26/19 25 09/25/2024 pharm acolo gic nucle ar stres s test No observ ation record ed. [address] [facility] [address], [place], [address], 09/25/2024 14:17:43 Result Notes None recorded. Problems Name Problem SNOMED Code Status Onset Date Resolution Date Notes Provider Name and Address Organization Details Recorded Time Renewal of prescripti on Active 2021 Not Available [facility] 3 14:11:55 Disorder of shoulder 973406779 Active Not Available [facility] 3 14:11:55 Benign essential hypertensi on 7110028 Active Not Available [facility] 3 14:11:55 Spinal stenosis of lumbar region 42672865 Active Not Available [facility] 3 14:11:55 Anxiety disorder 339601332 Active Not Available [facility] 3 14:11:55 Gastroesop hageal reflux disease 663556148 Active Not Available [facility] 3 14:11:55 Benign prostatic hyperplasi a with outflow obstructio n 147615270 Active 2016 Not Available [facility] 3 14:11:55 Osteoarthr itis of knee 464422832 Active Not Available [facility] 3 14:11:55 Long-term drug therapy Active 2021 Not Available [facility] 3 14:11:55 Anemia 497194364 Active 2021 Not Available [facility] 3 14:11:56 Low back pain 514552312 Active 2021 Not Available [facility] 3 14:11:56 Chronic pain syndrome 679491968 Active 2017 Not Available [facility] 3 14:11:56 Onychomyco sis of toenails 178332534 Active 2021 Not Available [facility] 3 14:11:56 Atrial fibrillati on 93094402 Active 2019 Not Available [facility] 3 14:11:56 Disorder of bursa of shoulder region 97099132 Active Not Available [facility] 3 14:11:56 Tinea pedis 6926395 Active 2021 Not Available [facility] 3 14:11:56 Degenerati on of cervical interverte bral disc 08406200 Active Not Available [facility] 3 14:11:56 Spinal stenosis 98260704 Active 2021 Not Available [facility] 3 14:11:56 Herniation of nucleus pulposus 95150942 Active Not Available [facility] 3 14:11:56 Cellulitis of left hand 2964954493099 9100 Active 2022 Penelope Hickman MD [address], [address], [place], [address] , [place] [facility] 3 11:13:46 Cellulitis of lower limb 555984236 Active 2022 Penelope Hickman MD [address], [address], [place], [address] , [place] - [facility] 3 11:44:27 Cellulitis of right lower limb 4404616194981 9104 Active 2022 Penelope Hickman MD [address], [address], [place], [address] , [place] - [facility] 3 11:46:29 Hyponatrem ia 72050470 Active 2022 Becky lama, [place] - [facility] 3 16:32:09 Disorder of prostate 10919221 Active 2022 Penelope Hickman MD [address], [address], [place], [address] , [place] [facility] 3 12:09:41 Cellulitis of finger of left hand [id number] 9105 Active 2022 Penelope Hickman MD [address], [address], [place], [address] , [place] [facility] 3 17:06:31 COVID-19 324485571 Active 2023 Penelope Hickman MD [address], [address], [place], [address] , [place] [facility] 4 10:39:36 Open wound of left lower leg [id number] 9106 Active 2023 Penelope Hickman MD [address], [facility] [address], [place], [address] , [facility] [facility] 4 10:39:21 Pain in left foot [id number] 07 Active 2023 Sharmaine Mar null, [facility] 4 10:41:21 Pain of left wrist 1178507658883 02 Active 2023 Cristina Martinez CMA null, [facility] 4 15:40:59 Pain of left shoulder joint 6939702614392 9109 Active 2023 Cristina Martinez CMA null, [facility] [place] [facility] 4 15:41:15 Cough 14802545 Active 2023 Cristina Martinez CMA null, [facility] 4 15:35:55 Depressive disorder 79730084 Active 2024 Penelope Hickman MD [address], [facility] [address], [place], [address] , [facility] 5 12:07:50 Impacted cerumen in left ear 9665796918186 101 Active 2024 DAINA Monzon [address] [facility], [address] [address], [place], [address] , [facility] 5 11:52:00 Ulcer of mouth 96468680 Active 2024 DAINA Monzon [address], [facility] [address], [place], [address] , [facility] 5 11:53:10 Open wound 938843545 Active 2024 ILANA Orozco, [facility] [place] [facility] 5 10:44:39 Problem Notes None recorded. Procedures Surgical History Date Name Laterality Status Provider Name and Address Organization Details Recorded Time 4 Medicare Wellness CPT Code, subsequent completed Naomi Tinoco RN [facility] [employer] [facility] 11/15/2023 11:50:30 Medicare Wellness CPT Code, subsequent completed Pooja Brown RN [facility] [employer] [facility] 08/26/2022 11:26:14 Neck Surgeries completed Not Available [facility] 07/14/2022 14:10:29 procedure on shoulder completed Not Available [facility] 07/14/2022 14:10:29 Back Surgeries completed Not Available [facility] 07/14/2022 14:10:29 Imaging Results None recorded. Procedure Notes None recorded. Medical Equipment None Reported. Allergies Allergen ID Allergen Name Allergen Category Reaction Reaction Severity Criticality Documentation Date Start Date Code Code System Note Provider Name and Address Organization Details Recorded Time 65528 Product containin g penicilli n (product) medicatio n rash Not available Not available 07/14/2022 38969 8001 SNOMED Not Available [facility] 14:14:18 Medications Name Sig Start Date Stop Date Status Note LastModified by Organization Details LastModified Time buspirone 5 mg tablet TAKE 1 TABLET BY MOUTH TWICE DAILY active Not Available Not Available No t Available doxycycli ne hyclate 100 mg capsule TAKE 1 CAPSULE BY MOUTH TWICE DAILY 05/29 completed Not Available Not Available Not Available tizanidin e 2 mg tablet TAKE 1 TABLET BY MOUTH THREE TIMES DAILY active Not Available Not Available No t Available clindamyc in HCl 300 mg capsule TAKE 1 CAPSULE BY MOUTH EVERY 6 HOURS FOR 10 DAYS 05/29 completed Not Available Not Available Not Available trazodone 50 mg tablet TAKE 1 TABLET BY MOUTH DAILY AT BEDTIME FOR SLEEP active Not Available Not Available No t Available alprazola m 1 mg tablet TAKE 1 TABLET BY MOUTH FOUR TIMES DAILY NEEDED FOR ANXIETY 04/29 completed Not Available Not Available Not Available ofloxacin 0.3 % eye drops 08/26 completed Not Available Not Available Not Available metoprolo l tartrate 100 mg tablet TAKE ONE AND A HALF TABLETS DAILY 04/23 completed Not Available Not Available Not Available benzonata te 200 mg capsule TAKE 1 CAPSULE BY MOUTH THREE TIMES DAILY 05/29 completed Not Available Not Available Not Available metoprolo l succinate ER 50 mg tablet,ex tended release 24 hr TAKE 1 TABLET BY MOUTH EVERY DAY active Not Available Not Available No t Available lisinopri l 20 mg tablet Take 1 tablet every day by oral route. 2012 active Not Available Not Available Not Avai lable doxycycli ne hyclate 50 mg capsule TAKE 1 CAPSULE BY MOUTH TWICE DAILY FOR 30 DAYS active Not Available Not Available No t Available metoprolo l succinate ER 100 mg tablet,ex tended release 24 hr TAKE 1 AND 1/2 TABLETS BY MOUTH EVERY DAY active Not Available Not Available No t Available sertralin e 100 mg tablet TAKE 1 TABLET BY MOUTH EVERY DAY active Not Available Not Available No t Available Zithromax Z-Gabe 250 mg tablet TAKE 2 TABLETS (500 MG) BY ORAL ROUTE ONCE DAILY FOR 1 DAY THEN 1 TABLET (250 MG) BY ORAL ROUTE ONCE DAILY FOR 4 DAYS 08/27 completed Not Available Not Available Not Available clindamyc in HCl 150 mg capsule TAKE 4 CAPSULES BY MOUTH 1 HOUR BEFORE DENTAL PROCEDUR E 05/29 completed Not Available Not Available Not Available amlodipin e 2.5 mg tablet Take 1 tablet every day by oral route. active Not Available Not Available No t Available sulfameth oxazole 800 mg-trimet hoprim 160 mg tablet TAKE 1 TABLET BY MOUTH EVERY 12 HOURS 05/29 completed Not Available Not Available Not Available hydrocodo ne 10 mg-acetam inophen 325 mg tablet TAKE 1 TABLET BY MOUTH EVERY 4 HOURS active Not Available Not Available No t Available ketorolac 0.5 % eye drops 08/26 completed Not Available Not Available Not Available dexametha sone 0.5 mg/5 mL oral elixir TAKE 5 ML BY MOUTH TWICE DAILY FOR 5 DAYS active Not Available Not Available No t Available terbinafi ne HCl 250 mg tablet TAKE 1 TABLET BY MOUTH EVERY DAY DIRECTED 03/11 completed Not Available Not Available Not Available alprazola m 0.5 mg tablet TAKE 1 TABLET BY MOUTH FOUR TIMES DAILY FOR ANXIETY 2024 active Not Available Not Available Not Avai lable citalopra m 20 mg tablet TAKE 1 TABLET DAILY FOR ANXIETY AND DEPRESSI ON active Not Available Not Available No t Available prednisol one acetate 1 % eye drops,crescencio pension INSTILL 1 DROP INTO BOTH EYES FOUR TIMES DAILY FOR 2 WEEKS 12/31 completed Not Available Not Available Not Available DOK 100 mg capsule TAKE 1 CAPSULE BY MOUTH TWICE DAILY 05/29 completed Not Available Not Available Not Available Kenalog 10 mg/mL suspensio n for injection In office injectio n administ ered by the provider 04/23 completed [facility]: [phone] 4-20 Not Available Not Available Not Available amlodipin e 10 mg tablet TAKE 1 TABLET BY MOUTH DAILY active Not Available Not Available No t Available hydrocodo ne 7.5 mg-acetam inophen 325 mg tablet TAKE 1 TABLET BY MOUTH EVERY 6 HOURS NEEDED FOR PAIN 09/01 completed Not Available Not Available Not Available cephalexi n 500 mg capsule TAKE 1 CAPSULE BY MOUTH EVERY 6 HOURS active Not Available Not Available No t Available paroxetin e 20 mg tablet TAKE 1 TABLET BY MOUTH EVERY DAY active Not Available Not Available No t Available erythromy maggi 5 mg/gram (0.5 %) eye ointment APPLY TO BOTH EYES THREE TIMES DAILY FOR 1 WEEK 12/31 completed Not Available Not Available Not Available tacrolimu s 0.1 % topical ointment APPLY A RASH AREAS ON FACE TWICE DAILY active Not Available Not Available No t Available Norvasc 5 mg tablet Take 1 tablet every day by oral route. 05/23 completed Not Available Not Available Not Available omeprazol e 20 mg capsule,d elayed release TAKE ONE CAPSULE BY MOUTH EVERY DAY active Not Available Not Available No t Available diclofena c sodium 75 mg tablet,de layed release TAKE 1 TABLET BY MOUTH TWICE DAILY 2024 active Not Available Not Available Not Avai lable mont[facility] st 10 mg tablet TAKE 1 TABLET BY MOUTH DAILY active Not Available Not Available No t Available hydrochlo rothiazid e 25 mg tablet TAKE 1 TABLET BY MOUTH EVERY DAY active Not Available Not Available No t Available Levaquin 500 mg tablet Take 1 tablet every 24 hours by oral route. active Not Available Not Available No t Available metoprolo l succinate ER 25 mg tablet,ex tended release 24 hr TAKE 1 TABLET BY MOUTH DAILY active Not Available Not Available No t Available methylpre dnisolone 4 mg tablets in a dose pack FOLLOW PACKAGE DIRECTIO NS 12/31 completed Not Available Not Available Not Available Vitamin D2 1,250 mcg (50,000 unit) capsule Take 1 capsule every week by oral route. 11/22 completed Not Available Not Available Not Available ketoconaz ole 2 % topical cream APPLY EXTERNAL LY TO THE AFFECTED AREA ON TOENAILS ONCE DAILY FOR 2 WEEKS active Not Available Not Available No t Available lisinopri l 40 mg tablet TAKE 1 TABLET BY MOUTH EVERY DAY 04/29 completed Not Available Not Available Not Available fluticaso ne propionat e 50 mcg/actua tion nasal spray,crescencio pension SHAKE LIQUID AND USE 1 SPRAY IN EACH NOSTRIL EVERY DAY active Not Available Not Available No t Available Ventolin HFA 90 mcg/actua tion aerosol inhaler Inhale 2 puffs every 4 hours by inhalati on route. active this was done under wrong patient this is a mistake , not given to pt Not Available Not Available Not Available tobramyci n 0.3 %-dexamet hasone 0.1 % eye drops,crescencio pension 08/06 completed Not Available Not Available Not Available oxycodone 5 mg tablet 12/24 completed Not Available Not Available Not Available clindamyc in 1 % lotion APPLY TO RASH AREAS ON FACE TWICE DAILY active Not Available Not Available No t Available Mucinex 600 mg tablet, extended release Take 1 tablet every 12 hours by oral route. 08/06 completed Not Available Not Available Not Available Allergy Relief D-24hr 10 mg-240 mg tablet,ex tended release TAKE 1 TABLET DAILY 11/22 completed Not Available Not Available Not Available tizanidin e 2 mg capsule TAKE 1 CAPSULE BY MOUTH TWICE DAILY NEEDED 08/26 completed Not Available Not Available Not Available pregabali n 50 mg capsule TAKE 1 CAPSULE BY MOUTH TWICE DAILY active Not Available Not Available No t Available lidocaine (PF) 10 mg/mL (1 %) injection solution In office injectio n administ ered by the provider 04/23 completed [facility]: 0409-427 6-17 Not Available Not Available Not Available Symbicort 160 mcg-4.5 mcg/actua tion HFA aerosol inhaler INHALE 2 PUFFS TWICE DAILY 04/23 completed Not Available Not Available Not Available Xarelto 20 mg tablet Take 1 tablet twice a day by oral route. 08/27 completed Not Available Not Available Not Available Eliquis 5 mg tablet TAKE 1 TABLET BY MOUTH TWICE DAILY active Not Available Not Available No t Available Stimulant Laxative Plus 8.6 mg-50 mg tablet TAKE 1 TABLET BY MOUTH DAILY active Not Available Not Available No t Available Fluarix Quad 4677-3312 (PF) 60 mcg (15 mcg x 4)/0.5 mL IM syringe ADM 0.5ML UTD active Not Available Not Available No t Available Entresto 49 mg-51 mg tablet TAKE 1 TABLET BY MOUTH TWICE DAILY active Not Available Not Available No t Available Entresto 24 mg-26 mg tablet TAKE 1 TABLET BY MOUTH TWICE DAILY active Not Available Not Available No t Available Paxlovid 300 mg (150 mg x 2)-100 mg tablets in a dose pack FOLLOW PACKAGE DIRECTIO NS 05/29 completed Not Available Not Available Not Available Vitals Date Recorded Body height Body mass index (BMI) Body weight Body temperature Systolic And Diastolic Provider Name and Address Organization Details Last Updated DateTime 05/29/2024 171.45 cm 23.3 kg/m2 70365.4 5 g 97 [degF] 138/82 mm[Hg] Becky Carr [facility] [employer] [facility] 5 10:58:18 Date Recorded Body height Body mass index (BMI) Body weight Body temperature Provider Name and Address Organization Details Last Updated DateTime 06/26/2024 171.45 cm 23 kg/m2 41988.26 g 97.8 [degF] Kirstie Macias RN [facility] [employer] [facility] 06/26/2024 11:13:01 Date Recorded Body height Body mass index (BMI) Body weight Heart rate Body temperature Oxygen saturation Oxygen saturation in Arterial blood by Pulse oximetry Systolic And Diastolic Provider Name and Address Organization Details Last Updated DateTime 4 167.64 cm 24.2 kg/m2 36835.8 6 g 55 /min 97.8 [degF] 96 % 96 % 120/70 mm[Hg] ISELA Carpio [facility] [employer] [facility] 4 11:39:10 Date Recorded Body height Body mass index (BMI) Body weight Heart rate Body temperature Oxygen saturation Oxygen saturation in Arterial blood by Pulse oximetry Systolic And Diastolic Provider Name and Address Organization Details Last Updated DateTime 4 167.64 cm 24.2 kg/m2 14347.8 6 g 58 /min 97 [degF] 97 % 97 % 118/64 mm[Hg] Becky RUFF [employer] 4 10:27:56 Date Recorded Body height Body mass index (BMI) Body weight Heart rate Body temperature Oxygen saturation Oxygen saturation in Arterial blood by Pulse oximetry Systolic And Diastolic Provider Name and Address Organization Details Last Updated DateTime 3 167.64 cm 26.1 kg/m2 88517.1 7 g 74 /min 97 [degF] 98 % 98 % 118/64 mm[Hg] Becky RUFF [employer] [facility] [facility] 3 11:35:02 Social History Question Answer Notes LastModified by Organizat ion Details LastModified Time Tobacco Smoking Status Never Smoker Not Available [facility] 07/14/2022 14:10:23 Do You Have An Advance Directive? No [id number] Information not available 07/14/2022 Are You Blind Or Do You Have Difficulty Seeing? No [id number] Information not available 07/14/2022 What Is Your Level Of Caffeine Consumption? Occasional MIGRATION.[id number] 5239 Information not available 07/14/2022 Are You Deaf Or Do You Have Serious Difficulty Hearing? No [id number].[id number] Information not available 07/14/2022 What Type Of Diet Are You Following? REGULAR MIGRATION.[id number] 0199 Information not available 07/14/2022 Have There Been Any Changes To Your Family Or Social Situation? No MIGRATION.[id number] [id number] Information not available 07/14/2022 What Is The Fluoride Status Of Your Home? Unknown [email or web address] Information not available 11/15/2023 Are There Any Guns Present In Your Home? Yes MIGRATION.[id number] Information not available 07/14/2022 Do You Use Insect Repellent Routinely? Yes [email or web address] Information not available 08/26/2022 Where Do You Live? [place]House MIGRATION.[id number] 0055 Information not available 07/14/2022 Guns Present In The Home? Yes [email or web address] Information not available 11/15/2023 Are You Able To Care For Yourself? Yes [email or web address] Information not available 11/15/2023 Are You Blind Or Do Yo Have Difficulty Seeing? No [email or web address] Information not available 11/15/2023 Are You Deaf Or Do You Have Serious Difficulty Hearing? No [email or web address] Information not available 11/15/2023 Live Alone Of With Others? With Others [email or web address] Information not available 11/15/2023 Do You Have A Medical Power Of Fondant Machine Operator? No MIGRATION.[id number] Information not available 07/14/2022 What Was The Date Of Your Most Recent Tobacco Screening? 11/15/2023 Information not available 11/15/2023 Have You Ever Been Counseled For Unhealthy Alcohol Use? No MIGRATION.[id number] 6113 Information not available 07/14/2022 Do You Have Any Pets? Yes Information not available 08/26/2022 What Is Your Relationship Status? MIGRATION.400251 9011 Information not available 07/14/2022 Do You Use Your Seat Belt Or Car Seat Routinely? Yes MIGRATION.422101 1046 Information not available 07/14/2022 Do You Have Smoke And Carbon Monoxide Detectors In Your Home? Yes MIGRATION.617114 0684 Information not available 07/14/2022 Are You Passively Exposed To Smoke? No MIGRATION.914620 2779 Information not available 07/14/2022 Are There Any Smokers In Your House? No Information not available 08/26/2022 Do You Use Sunscreen Routinely? No Information not available 08/26/2022 Has Tobacco Cessation Counseling Been Provided? No MIGRATION.515821 5920 Information not available 07/14/2022 Do You Have Difficulty Walking Or Climbing Stairs? No MIGRATION.799386 4913 Information not available 07/14/2022 Do You Have Any Dietary Restrictions? No MIGRATION.014684 0696 Information not available 07/14/2022 Sex: Unknown Functional Status Question Answer Note LastModified by Organizat ion Details LastModified Time Do you use any illicit or recreational drugs? No MIGRATION.[id number] 026 Information not available 07/14/2022 Do you or have you ever used any other forms of tobacco or nicotine? No MIGRATION.9480311 026 Information not available 07/14/2022 What is your level of alcohol consumption? None Information not available 08/26/2022 Do you have transportation difficulties? No MIGRATION.3360272 026 Information not available 07/14/2022 Are you able to walk? YESWOREST MIGRATION.1465817 026 Information not available 07/14/2022 Do you have difficulty doing errands alone? No MIGRATION.2776867 026 Information not available 07/14/2022 Are you able to care for yourself? Yes MIGRATION.0020141 026 Information not available 07/14/2022 Do you have difficulty dressing or bathing? No MIGRATION.1705651 026 Information not available 07/14/2022 What is your exercise level? None [email or web address] Information not available 11/15/2023 Mental Status Question Answer Note LastModified by Organizat ion Details LastModified Time Do you have difficulty concentrating, remembering or making decisions? No MIGRATION.[id number] Information not available 07/14/2022 Family History Nothing Reported Notes:Mother 89 hig h cholesterol and some dementia Father 90 ASHD, Atrial Fib, High Cholesterol One brother living with Mienerre's disease Medical History Condition Response NERVE DISEASE N BLINDNESS N RHEUMATIC FEVER N KIDNEY STONES N BLADDER PROBLEMS N MRSA N OTHER # 1 N POLIO N LUNG DISEASE/DISORDER N RADIATION / CHEMOTHERAPY N COPD N Other # 2 N BLOOD DISEASES N SURGERY N EAR OR HEARING PROBLEMS N MUMPS N BOWEL PROBLEMS N DEPRESSION (INCLUDING POST ) N STROKE/TIA N ULCERS N BENIGN PROSTATIC HYPERPLASIA N MEASLES N MYOCARDIAL INFARCTION N OBESITY N GERD/NAUSEA N ANEURYSM N URINARY/BLADDER/KIDNEY PROBLEMS N CORONARY ARTERY DISEASE (CAD) N ADDICTION CONCERNS N ENDOMETRIOSIS N Impotence N USE OF BLOOD THINNERS Y SKIN PROBLEMS N GASTROINTESTINAL DISORDER Y PERIPHERAL VASCULAR DISEASE N MUSCLE,JOINT OR BONE PROBLEMS N GASTROINTESTINAL BLEEDING N BLOOD CLOTS N ASTHMA N CATARACTS N ERECTILE DYSFUNCTION N VARICOSITIES N GI PROBLEMS N Low Testosterone N INFERTILITY N AIDS/HIV N CHEMOTHERAPY / RADIATION N LIVER DISEASE N MALE HYPOGONADISM N HYPERTENSION Y Deficiency N ANXIETY DISORDER Y BLOOD TRANSFUSION N ANEMIA/BLOOD DISORDER N CHRONIC EAR INFECTIONS N BRONCHITIS N TUBERCULOSIS N GLAUCOMA N FOOT PROBLEM N DIVERTICULITIS N SLEEP APNEA N CHICKENPOX N INFECTIOUS DISEASE N HEART ARRHYTHMIA N PROSTATE Y INSOMNIA N HIGH CHOLESTEROL / HYPERLIPIDEMIA N HYPERTHYROIDISM N EYE PROBLEMS N NEUROLOGICAL PROBLEMS N EDEMA N CHRONIC PAIN SYNDROME N HYPOTHYROIDISM N CAROTID BLOCKAGE N CONSTIPATION N BACK / NECK PROBLEMS Y HAVE YOU BEEN HOSPITALIZED OR SEEN IN [facility] IN THE PAST YEAR ? N ATHEROSCLEROSIS N BREAST PROBLEMS N DIALYSIS N ECZEMA N OSTEOPOROSIS N ARTHRITIS Y NO SIGNIFICANT PAST MEDICAL HISTORY N APPENDICITIS N DIABETES, TYPE N BAD TEETH N ENT N HEARTBURN / REFLUX N AUTISM SPECTRUM DISORDER (ASD) N HEPATITIS / LIVER DISEASE N GOUT N SLEEP DISORDER N ALZHEIMER'S DISEASE N Brain Problems N HERPES N DEMENTIA N HEADACHES/MIGRAINES N SEIZURES/EPILEPSY N VASCULAR DISEASE N PACEMAKER N Blood Disorder N DIZZINESS N HEART DISEASE/HEART PROBLEMS Y KIDNEY DISEASE N MULTIPLE SCLEROSIS N CARDIAC ARRHYTHMIA N CANCER: SPECIFY N ATRIAL FIBRILLATION Y Gall Stones N PULMONARY EMBOLISM N AUTOIMMUNE DISEASE N Immunizations Vaccine Type Date Status Note Provider Nam e and Address Organization Details Recorded Time SARS-COV-2 (COVID-19) vaccine, UNSPECIFIED 3 completed Becky Slecka [employer] 04/29/2023 11:35:26 influenza, unspecified formulation 3 completed Becky Slecka null, [employer] 04/29/2023 11:35:38 influenza, unspecified formulation 2 completed Not Available [facility] 07/14/2022 14:14:12 COVID-19, mRNA, LNP-S, PF, 100 mcg/0.5mL dose or 50 mcg/0.25mL dose 1 completed Not Available [facility] 07/14/2022 14:14:13 Influenza, split virus, quadrivalent, preservative 1 completed Not Available [facility] 07/14/2022 14:14:13 COVID-19 Non-US Vaccine, Product Unknown 1 completed Not Available [facility] 07/14/2022 14:14:13 COVID-19 Non-US Vaccine, Product Unknown 1 completed Not Available [facility] 07/14/2022 14:14:13 Influenza, high-dose, trivalent, PF 8 completed Not Available [facility] 07/14/2022 14:14:13 Influenza, high-dose, trivalent, PF 6 completed Not Available [facility] 07/14/2022 14:14:13 pneumococcal polysaccharide PPV23 0 completed Not Available [facility] 07/14/2022 14:14:13 Influenza, high-dose, trivalent, PF 7 completed Not Available [facility] 07/14/2022 14:14:13 Influenza, high-dose, trivalent, PF 4 completed Not Available [facility] 07/14/2022 14:14:13 Pneumococcal conjugate PCV 13 5 completed Not Available [facility] 07/14/2022 14:14:14 Past Encounters Encounter ID Performer Location Encounter Start Date Encounter Closed Date Diagnosis/Indication Diagnosis SNOMED-CT Code Diagnosis ICD10 Code Diagnosis Note [id number] Penelope Hickman MD [facility] [address] [address] 08/20/2020 00:00:00 08/20/2020 11:13:17 [id number] Penelope Hickman MD [facility] [address] [address] 12/24/2020 00:00:00 12/24/2020 11:33:33 [id number] Penelope Hickman MD [facility] [address] [address] 04/23/2021 00:00:00 04/23/2021 12:01:53 [id number] Adrian Nava DPM [facility] [place] [address] [address] 07/16/2021 00:00:00 07/16/2021 09:51:04 [id number] Adrian Nava DPM [facility] [place] [address] [place] [address] 08/13/2021 00:00:00 08/13/2021 10:12:16 [id number] Penelope Hickman MD [facility] [address] [address] 08/27/2021 00:00:00 08/27/2021 11:33:02 [id number] Adrian Nava DPM [facility] [place] [address] [place] [address] 09/10/2021 00:00:00 09/10/2021 10:16:30 [id number] Penelope Hickman MD [facility] Internal Med [facility] [address] [address] 12/31/2021 00:00:00 12/31/2021 11:41:39 [id number] Adrian Nava DPM [facility] [place] [address] [place] [address] 01/07/2022 00:00:00 01/07/2022 10:17:31 [id number] Adrian Nava DPM [facility] [place] [address] [address] 03/11/2022 00:00:00 03/11/2022 11:04:02 [id number] Penelope Hickman MD [facility] Internal Med [facility] [address] [address] 04/29/2022 00:00:00 04/29/2022 12:11:51 [id number] Penelope Hickman MD [facility] Internal Med [facility] [address] [address] 08/26/2022 11:09:31 08/26/2022 11:45:21 Adult health examination 028086539 Z00.00 Screening for disorder 946309559 Z13.9 Benign ess ential hypertension 6580300 I10 Atrial fibrillation 4943 6004 I48.91 Gastroesop hageal reflux disease 801964852 K21.9 Cellulitis of left hand 3047658918 1153655 L03.114 [id number] Penelope Hickman MD [facility] Med [address] [place] [address] 12/31/2022 11:00:13 12/31/2022 11:51:25 Benign essential hypertension 3943576 I10 Atrial fibrillation 4943 6004 I48.91 Anxiety disorder 0185706 06 F41.9 Gastroesop hageal reflux disease 587307193 K21.9 Chronic pain syndrome 37 2531128 G89.4 Cellulitis of right lower limb 3418004869 5961949 L03.115 Tinea pedis 4488978 B35. 3 [id number] Penelope Hickman MD [facility] Internal Med [facility] [address] [address] 04/29/2023 11:21:55 04/29/2023 12:14:00 Benign essential hypertension 2229240 I10 Chronic pain syndrome 37 4730461 G89.4 Atrial fibrillation 4943 6004 I48.91 Disorder of prostate 302 56480 N42.9 [id number] Penelope Hickman MD [facility] Internal Med Sami lljanice [address] [place] [address] [place] [address] 11/15/2023 11:30:11 11/15/2023 12:21:23 Adult health examination [id number] Z00.00 Screening for disorder 132099497 Z13.9 Benign ess ential hypertension 5994623 I10 Atrial fibrillation 4943 6004 I48.91 Gastroesop hageal reflux disease 924307283 K21.9 Chronic pain syndrome 37 8580578 G89.4 [id number] Penelope Hickman MD [facility] [address] [place] [address] , [facility] [place] [address] 11/29/2023 10:24:18 11/29/2023 10:44:00 Open wound of left lower leg [id number] S81.802A [id number] Penelope Hickman MD [facility] Internal Med [facility] [address] [address] 05/29/2024 10:46:48 05/29/2024 11:25:04 Benign essential hypertension 7453807 I10 Atrial fibrillation 4943 6004 I48.91 Gastroesop hageal reflux disease 005272920 K21.9 Chronic pain syndrome 37 8868406 G89.4 Disorder of prostate 302 67433 N42.9 Long-term current use of opiate analgesic drug [id number] 74085 Z79.891 Anxiety disorder 8487461 06 F41.9 [id number] Carroll Carroll MD [facility] [address] [place] [address] 06/26/2024 10:54:52 06/26/2024 11:56:57 Impacted cerumen in left ear [id number] 600501 H61.22 cerumen removal successful ly removed with irrigation Ulcer of mouth 20838211 K12.1 Health Concerns Section Related Observation LastModified by Organization Detai ls LastModified Time None Recorded Concern Status LastModified by Organization Details LastModified Time None Recorded Advance Directives Directive N: Payers Encounter Date Sequence Insurance Name Policy Number Policy Hernández Covered Member ID Hernández Member ID Guarantor Name 04/29/2023 1 [place] Timi Chaey Sr [id number] Timi Grossman 04/29/2023 2 [facility] (MEDICARE SUPPLEMENT) [id number] Timi Grossman [id number] Timi Grossman 11/15/2023 1 [place] Timi Chaey Sr [id number] Timi Grossman 11/15/2023 2 [facility] (MEDICARE SUPPLEMENT) [id number] Timi Grossman [id number] Timi Grossman 11/29/2023 1 [place] Timi Chaey Sr [id number] Timi Chaey 11/29/2023 2 [facility] (MEDICARE SUPPLEMENT) [id number] Timi Grossman [id number] Timi Grossman 05/29/2024 1 [place] Timi Chaey Sr [id number] Timi Grossman 05/29/2024 2 [facility] (MEDICARE SUPPLEMENT) [id number] Timi Grossman [id number] Timi Grossman 06/26/2024 1 [place] Timi Chaey Sr [id number] Timi Chaey 06/26/2024 2 [facility] (MEDICARE SUPPLEMENT) [id number] Timi Grossman [id number] Timi Grossman Notes Date Note Type Note Provider Name and Address Organization Details Recorded Time 3 text/htm l Patient Name: Timi GrossmanDate Of Service: Tuesday ( 04.29.2023 ): 1950 Age: 73 There has been approximately a .5 lb weight loss since 12/31/2022. This represents approximately a .3% change in weight. Weight change attributable to lifestyle changes. Vital Signs:Blood Pressure: Sitting Rt. Arm 118/64Pulse: Sitting 74 /min and RegularRespiratory Rate: 12Height 66 in or 1.7 mWeight 161.5 lb or 73.3 kgBMI 26.1Temperature: 97 F or 36.1 CPulse Oximetry: 98 % at rest on no oxygen Chief Complaint: Addressed in HPI Problems or conditions discussed in the HPI were the only ones reviewed during the encounter.Only social and family history addressed in the HPI were reviewed during this encounter. Attendant(s): NoneConstitutional and Systemic Symptoms:none Medication Reconciliation: from medication list. AnnotationsEchocardiogram from 08/09/2025 demonstrates frequent premature ventricular contractions. Estimated ejection fraction of 65%. There was moderate mitral And aortic valve regurgitation. There is mild tricuspid regurgitation. The right ventricular pulmonary artery demonstrates a pressure up to 52 mmHg. History of Present Illness #1. Essential Hypertension: Stage: Stage I Interval Neurological Complaints no headaches, dizziness, weakness, visual changes, ataxia, aphasia and apraxia. No shortness of breath, orthopnea or cardiovascular symptoms. No other symptoms related to end organ damage. Pressure has been under excellent control. Currently normal. No other end organ symptoms or findings. Therapy reviewed regarding management of hypertension and includes salt restriction and Amlodipine, Entresto and Toprol Xl. #2. Atrial Fibrillation: Type: Paroxysmal with recurrent episodes lasting less than 7 days. Further classification: Non-valvular. Associated history of none. No attending hx of any shortness of breath, palpitations, syncopal or neurological symptoms. Current medications: Eliquis and Toprol Xl. Rate control: controlled ventricular response [id number] Criteria: hypertension, Age > 75 and and considered moderate risk for embolic phenomenon. Anticoagulation: Eliquis #3. Chronic pain management for chronic lumbar Since last examination no significant change since last examination Interval Testing: noneHas tried NSAIDS partial relief requiring additional medication. Pain Description: constant. Currently seeing or has seen in the past a Employee Health Rn: Yes .Pain - Enjoyment of Life - General Activity ScalePain on Average: 5Enjoyment of Live: 5General Activity: 4Enjoyment of Life - General Activity Scale: 5Currently regimen consists of medications as prescribed with no evidence of abuse or self prescribing. Current Average Morphine Milligram Approximate Equivalent: 40 mg approximated if taking full dosage daily. Recommend: NA.Benzodiazepines or other hypnotics: S And in the process of reducing. Reduced from 1 mg to 0.5 mg 3-4 times per day..Alternative pain management modalities (acupuncture - behavior therapy- additional PT - SNRIs) have been discussed and have either been tried in the past or not acceptable alternatives to patient or not available in our location.Will kept medications the same.Urine Testing: not indicated and this time.Controlled substance database yes and no discrepancies or multiple prescribers noted. Pill counts when available have been acceptable. No other signs of any abuse.Patient reports condition is stable and is able to function with the medication. Denies any misuse or adverse effects.TREATMENT OBJECTIVE: Enhance ability to manage pain independently, improved function and sustain quality of life. Recommendations or alternative therapies and lifestyle changes are discussed on each visit. Has shown improvement inf functionality. Has been educated on the side effects,risks and any black box warnings. Has verbalized the dangers of some of the medications regarding driving and cooperating heavy machinery and have advised against this.Medication List Reviewed and Reconciled 04/29/2023Xanax .5 MG TABLET One Four Times A DayPrilosec 20 MG (CAPSULE, DELAYED REL PELLETS - ORAL) One Daily For Reflux And Gastric ProtectionToprol Xl 100 MG One Tablet DailyEntresto 24; 26 MG; MG TABLET, FILM COATED One BidNorco 325 MG-10 MG (TABLET - ORAL) One Evry Six Hours As NeededTrazodone 50 MG (TABLET - ORAL) One At BedtimeSingulair 10 MG (TABLET - ORAL) Once DailyHydrochlorothiazide 25 MG (TABLET - ORAL) Once Daily (On Hold)Terbinafine Hydrochloride 250 MG (TABLET - ORAL) Once DailyAmlodipine 2.5 MG (TABLET - ORAL) One DailyEliquis 5 MG (TABLET - ORAL) BidLyrica 50 MG (CAPSULE - ORAL) One Twice A Day As NeededADRs List Reviewed 3Penicillin RashVaccination and Lqjoautrzlii5506-18 Aevkgrajr7392-26 Covid Booster Hgleosr5556-90 Covid Ekdcrkt0955-56 Geriawjqn3985-56 Prevnar 13 GcSurgical HistoryL1-L2 Laminectomy, Left TSA, Appendectomy, Spinal Cord Stimulator, Lumbar Descompression, Cervical laminectomy, Lumbar Laminectomy, Lumbar Laminectomy, Lumbar LaminectomyPreventative Testing Confirmed by Our Phvqmyn4501/11/2023 ALBUMIN 4.4 G/DL 01/01/2022 PSA 0.18 NG/ML N002/11/2021 COLONOSCOPY (5 YEARS) 02/11/2026Social HistoryDoes not smokeDrinks sociallyWorks as a claims adjustorFamily HistoryMother 89 high cholesterol and some dementiaFather 90 ASHD, Atrial Fib, High CholesterolOne brother living with Mienerre's disease Penelope Hickman MD [address] [facility], [facility] [address], [place], [address], [facility] [employer] 04/29/2023 12:10:09 4 text/htm l Patient Name: Timi Gatica Of Service: Tuesday ( 11.15.2023 ): 1950 Age: 73 There has been approximately a 11.5 lb weight loss since 04/29/2023. This represents approximately a 7.1% change in weight. Weight change attributable to lifestyle changes. Vital Signs:Blood Pressure: Sitting Rt. Arm 120/70Pulse: Sitting 55 /min and RegularRespiratory Rate: 12Height 66 in or 1.7 mWeight 150 lb or 68.0 kgBMI 24.2Temperature: 97.8 F or 36.6 CPulse Oximetry: 96 % at rest on no oxygen Chief Complaint: Addressed in HPI Problems or conditions discussed in the HPI were the only ones reviewed during the encounter.Only social and family history addressed in the HPI were reviewed during this encounter. Attendant(s): NoneConstitutional and Systemic Symptoms:none Medication Reconciliation: from medication list. AnnotationsEchocardiogram from 08/09/2025 demonstrates frequent premature ventricular contractions. Estimated ejection fraction of 65%. There was moderate mitral And aortic valve regurgitation. There is mild tricuspid regurgitation. The right ventricular pulmonary artery demonstrates a pressure up to 52 mmHg. History of Present Illness Reviewed the findings of the preventative health visit. Addressed all areas with the patient, patient's family or caregivers. Preventative examinations and testing immunizations - vaccinations, colonic neoplasm screening and PSA all reviewed and ordered where patient was amenable to the recommendations. Cognitive function was normal. Depression addressed and where necessary medications were adjusted or instituted. End of life and living will briefly discussed with patient and where these can be filled out and legally executed. Other blood and imaging studies were ordered if considered necessary. Other recommendations may be found in the encounter note. #1. Essential Hypertension: Stage: Stage I Interval Neurological Complaints no headaches, dizziness, weakness, visual changes, ataxia, aphasia and apraxia. No shortness of breath, orthopnea or cardiovascular symptoms. No other symptoms related to end organ damage. Pressure has been under excellent control. Currently normal. No other end organ symptoms or findings. Therapy reviewed regarding management of hypertension and includes salt restriction and Amlodipine, Entresto and Toprol Xl. #2. Atrial Fibrillation: Type: Paroxysmal with recurrent episodes lasting less than 7 days. Further classification: Non-valvular. Associated history of essential hypertension. No attending hx of any shortness of breath, palpitations, syncopal or neurological symptoms. Current medications: Eliquis and Toprol Xl. Rate control: controlled ventricular response [id number] Criteria: hypertension and Age > 75 for embolic phenomenon. Anticoagulation: Eliquis #3. Hx of esophageal reflux currently stable. Hx of Complications: none The severity, duration and intensity of symptoms have improved. Frequency: most meals Treatment consists medications taken on no regular basis. Current therapy includes no medication. There has been no nausea, eructation, vomiting, hematemesis, dysphagia, velopharyngeal insufficiency and odynophagia. No change in he frequency or intensity of symptoms. Has had no melena. Has had no . Discussed use of H2 antagonists NA. #4 Chronic pain management for chronic lumbar, knees and hips Since last examination no significant change since last examination Interval Testing: noneHas tried NSAIDS partial relief requiring additional medication. Pain Description: constant, exacerbated by activity and interferes with enjoyment and ability to perform activities of daily living. Currently seeing or has seen in the past a Employee Health Rn: No .Pain - Enjoyment of Life - General Activity ScalePain on Average: 6Enjoyment of Live: 5General Activity: 5Enjoyment of Life - General Activity Scale: 5Currently regimen consists of Lyrica and [place] as prescribed with no evidence of abuse or self prescribing. Current Average Morphine Milligram Approximate Equivalent: 40 mg approximated if taking full dosage daily. Recommend: NA.Benzodiazepines or other hypnotics: yes and have discussed reducing dose.Alternative pain management modalities (acupuncture - behavior therapy- additional PT - SNRIs) have been discussed and have either been tried in the past or not acceptable alternatives to patient or not available in our location.Will kept medications the same.Urine Testing: not indicated and this time.Controlled substance database yes and no discrepancies or multiple prescribers noted. Pill counts when available have been acceptable. No other signs of any abuse.Patient reports condition is stable and is able to function with the medication. Denies any misuse or adverse effects.TREATMENT OBJECTIVE: Enhance ability to manage pain independently, improved function and sustain quality of life. Recommendations or alternative therapies and lifestyle changes are discussed on each visit. Has shown improvement inf functionality. Has been educated on the side effects,risks and any black box warnings. Has verbalized the dangers of some of the medications regarding driving and cooperating heavy machinery and have advised against this. Active Medication ListXanax .5 MG TABLET One Four Times A DayPrilosec 20 MG (CAPSULE, DELAYED REL PELLETS - ORAL) One Daily For Reflux And Gastric ProtectionToprol Xl 100 MG One Tablet DailyEntresto 24; 26 MG; MG TABLET, FILM COATED One BidNorco 325 MG-10 MG (TABLET - ORAL) One Evry Six Hours As NeededTrazodone 50 MG (TABLET - ORAL) One At BedtimeSingulair 10 MG (TABLET - ORAL) Once DailyTerbinafine Hydrochloride 250 MG (TABLET - ORAL) Once DailyAmlodipine 2.5 MG (TABLET - ORAL) One DailyEliquis 5 MG (TABLET - ORAL) BidLyrica 50 MG (CAPSULE - ORAL) One Twice A Day As Needed Adverse Drug Reactions ReviewedPenicillin Rash Vaccination and Cyjouyweffpb4902-47 Tydyqhmzo3460-96 Covid Booster Edhxzfd9404-64 Covid Tssewdm4678-23 Tlbdjmyre1533-55 Prevnar 13 Gc Surgical Kwxoldu3467-23 L1-L2 Nlaxlqtzzmu2250-61 Left NQZ8886-34 Upaesqmxlxrn0415-73 Spinal Cord Hpaycedtdj4041-06 Lumbar Nkqifvcwnvumop1607-32 Cervical nzyuieuybnd6079-67 Lumbar Xtzybccyabd4624-65 Lumbar Msubqphdjyv6166-17 Lumbar Laminectomy Preventative Nbuklel7405/17/2023 PSA 0.22 NG/ML N0 ALBUMIN 4.4 G/DL 02/11/2021 COLONOSCOPY (5 YEARS) 02/11/2026 Social HistoryDoes not smokeDrinks sociallyWorks as a director of claims Family HistoryMother 89 high cholesterol and some dementiaFather 90 ASHD, Atrial Fib, High CholesterolOne brother living with Mienerre's disease Penelope Hickman MD [address] [facility], [facility] [address], [place], [address], [facility] [facility] [employer] 11/15/2023 12:15:40 4 text/htm l Patient Name: Timi Gatica Of Service: Tuesday ( 11.29.2023 ): 1950 Age: 73 Vital Signs:Blood Pressure: Sitting Rt. Arm 118/64Pulse: Sitting 58 /min and RegularRespiratory Rate: 12Height 66 in or 1.7 mWeight 150 lb or 68.0 kgBMI 24.2Temperature: 97 F or 36.1 CPulse Oximetry: 97 % at rest on no oxygen Chief Complaint: Addressed in HPI Problems or conditions discussed in the HPI were the only ones reviewed during the encounter.Only social and family history addressed in the HPI were reviewed during this encounter. Attendant(s): NoneConstitutional and Systemic Symptoms:none Medication Reconciliation: from medication list. History of Present Illness #1. 3-4 weeks ago injury and laceration to the left lower leg. Over a period of time the wound is decreased in size by at least 50%. Still has some erythematous changes around the border in the diameter is currently a proximally 3 cm x 3 cm. It is deep with some early eschar formation. No associated systemic symptoms such as fever chills or any other associated complaints.: Active Medication ListXanax .5 MG TABLET One Four Times A DayPrilosec 20 MG (CAPSULE, DELAYED REL PELLETS - ORAL) One Daily For Reflux And Gastric ProtectionToprol Xl 100 MG One Tablet DailyEntresto 24; 26 MG; MG TABLET, FILM COATED One BidNorco 325 MG-10 MG (TABLET - ORAL) One Evry Six Hours As NeededTrazodone 50 MG (TABLET - ORAL) One At BedtimeSingulair 10 MG (TABLET - ORAL) Once DailyTerbinafine Hydrochloride 250 MG (TABLET - ORAL) Once DailyAmlodipine 2.5 MG (TABLET - ORAL) One DailyEliquis 5 MG (TABLET - ORAL) BidLyrica 50 MG (CAPSULE - ORAL) One Twice A Day As Needed Penelope Hickman MD [address] [facility], [place], [address], [facility] 11/29/2023 10:40:27 5 text/htm l Patient Name: Timi Gatica Of Service: Tuesday ( 05.29.2024 ): 1950 Age: 74 Vital Signs:Blood Pressure: Sitting Rt. Arm 138/82Pulse: Sitting 78 /min and RegularRespiratory Rate: 16Height 67.5 in or 1.7 mWeight 151 lb or 68.5 kgBMI 23.3Temperature: 97 F or 36.1 C Chief Complaint: Addressed in HPI Problems or conditions discussed in the HPI were the only ones reviewed during the encounter.Only social and family history addressed in the HPI were reviewed during this encounter. Attendant(s): NoneConstitutional and Systemic Symptoms:none Medication Reconciliation: from medication list. Vipqwxwodpc77-08-6305: Echocardiogram demonstrates frequent premature ventricular contractions. Estimated ejection fraction of 65%. There was moderate mitral And aortic valve regurgitation. There is mild tricuspid regurgitation. The right ventricular pulmonary artery demonstrates a pressure up to 52 mmHg. 01-23-2024: Echocardiogram estimated ejection fraction 60%. Mild mitral valve prolapse with nonspecific thickening of the mitral valve. Moderate to severe mitral regurgitation. Aortic valve regurgitation. Moderate tricuspid regurgitation. 04-24-2024: echocardiogram estimated ejection fraction 60%. Mitral valve prolapse involving the posterior mitral leaflet is noted. Csjuhwch-pt-ydqrvb mitral valve regurgitation. Moderate aortic valve regurgitation. Peak pulmonary artery pressure measured approximately 50 mmHg. History of Present Illness #1. Essential Hypertension: Stage: Stage I Interval Neurological Complaints no headaches, dizziness, weakness, visual changes, ataxia, aphasia and apraxia. No shortness of breath, orthopnea or cardiovascular symptoms. No other symptoms related to end organ damage. Pressure has been under excellent control. Currently normal. No other end organ symptoms or findings. Therapy reviewed regarding management of hypertension and includes salt restriction and Amlodipine, Entresto, Hydrochlorothiazide and Toprol Xl. #2. Atrial Fibrillation: Type: Paroxysmal with recurrent episodes lasting less than 7 days. Further classification: Non-valvular. Associated history of HTN. No attending hx of any shortness of breath, palpitations, syncopal or neurological symptoms. Current medications: Toprol Xl. Rate control: controlled ventricular response [id number] Criteria: hypertension, Age > 75 and and considered moderate risk for embolic phenomenon. Anticoagulation: Eliquis #3. Hx of esophageal reflux currently stable. Hx of Complications: none The severity, duration and intensity of symptoms have improved. Frequency: most meals Treatment consists medications taken on a regular basis. Current therapy includes Prilosec. There has been no nausea, eructation, vomiting, hematemesis, dysphagia, velopharyngeal insufficiency and odynophagia. No change in he frequency or intensity of symptoms. Has had no melena. Has had no . Discussed use of H2 antagonists and the possibility of trying to reduce the frequency of the use of any PPI inhibitors and try H2 antagonists to see if symptoms can be controlled with lease intensive therapy since a number of complications are associated with chronic prolonged use of PPI inhibitors. #4. Chronic pain management for chronic lumbar, knees and hips Since last examination no significant change since last examination Interval Testing: noneHas tried NSAIDS contraindicated because of other medical conditions. Pain Description: constant, exacerbated by activity and interferes with enjoyment and ability to perform activities of daily living. Currently seeing or has seen in the past a Employee Health Rn: No .Pain - Enjoyment of Life - General Activity ScalePain on Average: 5Enjoyment of Live: 4General Activity: 5Enjoyment of Life - General Activity Scale: 5Currently regimen consists of Lyrica and [place] as prescribed with no evidence of abuse or self prescribing. Current Average Morphine Milligram Approximate Equivalent: 40 mg approximated if taking full dosage daily. Recommend: Recommended but declined.Benzodiazepines or other hypnotics: Is on the alprazolam trying to increase the dosage but have recommended he would not increase this because of his concomitant use of 40 mg of morphine equivalents daily hydrocodone..Alternative pain management modalities (acupuncture - behavior therapy- additional PT - SNRIs) have been discussed and have either been tried in the past or not acceptable alternatives to patient or not available in our location.Will kept medications the same.Urine Testing: will be performed and patient instructed that failure of testing within a 24 hour period from time of order may result in termination of medication.Controlled substance database yes and no discrepancies or multiple prescribers noted. Pill counts when available have been acceptable. No other signs of any abuse.Patient reports condition is stable and is able to function with the medication. Denies any misuse or adverse effects.TREATMENT OBJECTIVE: Enhance ability to manage pain independently, improved function and sustain quality of life. Recommendations or alternative therapies and lifestyle changes are discussed on each visit. Has shown improvement inf functionality. Has been educated on the side effects,risks and any black box warnings. Has verbalized the dangers of some of the medications regarding driving and cooperating heavy machinery and have advised against this. Active Medication ListXanax .5 MG TABLET One Four Times A DayPrilosec 20 MG (CAPSULE, DELAYED REL PELLETS - ORAL) One Daily For Reflux And Gastric ProtectionToprol Xl 100 MG One Tablet DailyEntresto 49; 51 MG; MG TABLET, FILM COATED One BidNorco 325 MG-10 MG (TABLET - ORAL) One Evry Six Hours As NeededTrazodone 50 MG (TABLET - ORAL) One At BedtimeSingulair 10 MG (TABLET - ORAL) Once DailyHydrochlorothiazide 25 MG (TABLET - ORAL) Once DailyTerbinafine Hydrochloride 250 MG (TABLET - ORAL) Once DailyAmlodipine 2.5 MG (TABLET - ORAL) One DailyEliquis 5 MG (TABLET - ORAL) BidLyrica 50 MG (CAPSULE - ORAL) One Twice A Day As Needed Adverse Drug Reactions ReviewedPenicillin Rash Vaccination and Immunization( ) 2014-07 PREVNAR 13 GC(X) 2023-02 INFLUENZA( ) 2019-12 PNEUMOVAX( ) 2021-04 COVID MODERNA(X) 2023-02 COVID BOOSTER MODERNA Surgical Kdegfpq3293-23 L1-L2 Wsjtqzolwkm6902-79 Left TCM7259-75 Poutlwtxddgw4922-31 Spinal Cord Eqsyjhledg3810-71 Lumbar Kvfbcvjkbrtqt2927-98 Cervical kwgxniepvmf2233-06 Lumbar Ibhppdtcxsp5169-94 Lumbar Mehwtcmtnxy0291-87 Lumbar Laminectomy Preventative Testing( ) 12/01/2023 Albumin 4.5 G/DL N( ) 05/17/2023 PSA 0.22 NG/ML N 05/17/2025( ) 02/11/2021 Colonoscopy (5 Years) 02/11/2026 Social HistoryDoes not smokeDrinks sociallyWorks as a director of claims Family HistoryMother 89 high cholesterol and some dementiaFather 90 ASHD, Atrial Fib, High CholesterolOne brother living with Mienerre's disease Penelope Hickman MD [address], [facility] [address], [place], [address], [facility] [employer] [facility] [employer] 05/29/2024 11:14:02 5 text/htm l This patient has a past medical history significant for anxiety, depression, hypertension, AFib, GERD, BPH, OA, and anemia who presents to the office with a complaint decreased hearing and left ear congestion that began after having a shower on 06/24/2024. He states that after he had completed his shower he was using a Q-tip to dry out his ears when his symptoms had begun. He does note that he has attempted use of Debrox without success. He also notes that he was eating a piece of cruz approximately one-week ago in which he had developed a sore to the roof of his mouth that has not fully subsided. Does report pain and discomfort with consuming various foods. DAINA Monzon [address], [facility] [address], [place], [address], [facility] [employer] 06/26/2024 11:56:23
--- OUTSIDE RECORDS SUMMARY | 2024-10-09 12:31 | XMS_ITS | CONTINUITY OF CARE DOCUMENT ---
Author Name sandrine, sandrine Address Unknown Organization [facility] Address [address] [place] [address] Phone [phone] Care Team Providers Care Rotor Winder Name Role Phone Edmund CASTRO, Angie Unavailable HANSA CASTRO, PENELOPE Unavailable [phone] PENELOPE SANTO MD Unavailable [phone] PROBLEMS Condition Status Date Provider Notes CAD- 60-70% proximal RCA lesion active Angie Shaffer MD Hypercholesterolemia, mixed active Marisol Gr uenenfelder ANXIETY active Catalina Ramey LVH completed - Angie Shaffer MD MITRAL REGURGITATION Mild completed 11/08 - Angie Shaffer MD AORTIC REGURGITATION Mild completed 11/08 - Angie Shaffer MD Pulmonary hypertension, moderate active David Russo HTN--echo ef nl, pasp 50, 04/2024 active David Russo HOCM, hx of active David Russo HYPONATREMIA THIAZIDE DIURET IC STOPPED RPT BMP completed - Angie Shaffer MD CHEST PAIN-NL STRESS TEST 08/2018 active Angie Shaffer MD BACK PAIN Dx HAs a stimulator active Angie Shaffer MD Aortic insufficiency, moderate active David Russo Mitral regurgitation, modera te to severe active David Russo Preoperative cardiovascular examination completed - Angie Shaffer MD Wheezing active Angie Shaffer MD Paroxysmal atrial fibrillati on on Eliquis active Angie Shaffer MD DVT 06/2019 s/p appendectomy active Angie pace MD Shortness of breath active David Russo Cardiology examination active Angie Shaffer MD ENCOUNTERS Date Type Provider Location Encounter Diag nosis - In-person encounter Office Visit Angie Shaffer MD [facility] Cardiology examination - In-person encounter Office Visit Angie Shaffer MD [facility] HTN--echo ef nl, pasp 50, 04/2024Shortness of breath - In-person encounter Office Visit Angie Shaffer MD [facility] Pulmonary hypertension, moderateHTN--echo ef nl, pasp 50, 04/2024HOCM, hx ofAortic insufficiency, moderateMitral regurgitation, moderate to severe - In-person encounter Office Visit Angie Shaffer MD [facility] - In-person encounter Office Visit Angie Shaffer MD [facility] - In-person encounter Office Visit Angie Shaffer MD [facility] Pulmonary hypertension, moderateAortic insufficiency, moderateMitral regurgitation, moderate to severeParoxysmal atrial fibrillation on Eliquis - In-person encounter Office Visit Angie Shaffer MD [facility] Aortic insufficiency, moderate - In-person encounter Office Visit Angie Shaffer MD [facility] - In-person encounter Office Visit Angie Shaffer MD [facility] - In-person encounter Office Visit Angie Shaffer MD [facility] Pulmonary hypertension, moderateHOCM, hx ofCHEST PAIN-NL STRESS TEST 08/2018Aortic insufficiency, moderateMitral regurgitation, moderate to severePreoperative cardiovascular examinationParoxysmal atrial fibrillation on Eliquis - In-person encounter Office Visit Angie Shaffer MD [facility] - In-person encounter Office Visit Angie Shaffer MD [facility] - In-person encounter Office Visit Angie Shaffer MD [facility] Paroxysmal atrial fibrillation on EliquisDVT 06/2019 s/p appendectomy - In-person encounter Office Visit Angie Shaffer MD [facility] - In-person encounter Office Visit Angie Shaffer MD [facility] Wheezing - In-person encounter Office Visit Angie Shaffer MD [facility] Mitral regurgitation, moderate to severe - In-person encounter Office Visit Angie Shaffer MD [facility] - In-person encounter Office Visit Angie Shaffer MD [facility] MITRAL REGURGITATION MildAORTIC REGURGITATION MildBACK PAIN Dx HAs a stimulatorAortic insufficiency, moderate - In-person encounter Office Visit Angie Shaffer MD [facility] - In-person encounter Office Visit Angie Shaffer MD [facility] LVHHTN--echo ef nl, pasp 50, 04/2024HOCM, hx of - In-person encounter Office Visit Angie Shaffer MD [facility] - In-person encounter Office Visit Angie Shaffer MD [facility] - In-person encounter Office Visit Angie Shaffer MD [facility] HYPONATREMIA THIAZIDE DIURETIC STOPPED RPT BMPCHEST PAIN-NL STRESS TEST 08/2018 - In-person encounter Office Visit Angie Shaffer MD [facility] CHEST PAIN-NL STRESS TEST 08/2018 - In-person encounter Office Visit Angie Shaffer MD [facility] - In-person encounter Office Visit Angie Shaffer MD [facility] - In-person encounter Office Visit Angie Shaffer MD [facility] HTN--echo ef nl, pasp 50, 04/2024 - In-person encounter Office Visit Angie Shaffer MD [facility] - In-person encounter Office Visit Angie Shaffer MD [facility] VITAL SIGNS Date Observation Value Provider Body Mass Index (Ratio) 22.14 kg/m2 Javi Shaffer MD oxygen saturation, oximetry 97 % [facility] pulse rate 41 /min [facility] blood pressure, diastolic 70 mm[facility]Hg[facility]Hg[facility] E&[facility] 12 /min [facility] weight E&M 153 [lb_av] [facility] height E&M 69.7 [in_i] [facility] blood pressure, cuff size regular [facility] Body Mass Index (Ratio) 22.43 kg/m2 Javi Shaffer MD blood pressure, diastolic 74 mm[Hg] [facility], systolic 111 mm[Hg] edwin [facility] oxygen saturation, oximetry 85 % [facility] pulse rate 86 /min [facility] respiratory rate E&M 14 /min [facility] weight E&M 155 [lb_av] [facility] height E&M 69.7 [in_i] [facility] blood pressure, cuff size regular [facility] Body Mass Index (Ratio) 22.00 kg/m2 Javi Shaffer MD oxygen saturation, oximetry 97 % Shalonda Black pulse rate 52 /min Shalonda Black blood pressure, cuff size regular Gerardo powell Black blood pressure, diastolic 70 mm[Hg] Ta andre Black blood pressure, systolic 124 mm[Hg] Tab itha Black weight E&M 152 [lb_av] Shalonda Black respiratory rate E&M 12 /min Shalonda Black height E&M 69.7 [in_i] Shalonda Black Body Mass Index (Ratio) 22.57 kg/m2 Javi Shaffer MD blood pressure, diastolic 74 mm[Hg] Maribel nkLogic blood pressure, systolic 134 mm[Hg] Nimco [employer]Logic blood pressure, cuff size regular Ja rret blood pressure, diastolic 74 mm[Hg] Ja rret blood pressure, systolic 134 mm[Hg] Jar ret pulse rate 52 /min Isaac erda y oxygen saturation, oximetry 94 % Isaac respiratory rate E&M 16 /min Isaac weight E&M 156 [lb_av] Isaac er y height E&M 69.7 [in_i] Isaac erda y Body Mass Index (Ratio) 22.86 kg/m2 Javi Shaffer MD blood pressure, cuff size regular Ja rret blood pressure, diastolic 69 mm[Hg] Ja rret blood pressure, systolic 136 mm[Hg] Jar ret pulse rate 50 /min Isaac erda y oxygen saturation, oximetry 95 % Isaac respiratory rate E&M 12 /min Isaac weight E&M 158 [lb_av] Isaac y height E&M 69.7 [in_i] Isaac y Body Mass Index (Ratio) 24.02 kg/m2 Javi Shaffer MD blood pressure, cuff size large An aníbal Ja blood pressure, diastolic 74 mm[Hg] An aníbal Ja blood pressure, systolic 129 mm[Hg] Any juan ramon Ja oxygen saturation, oximetry 97 % Karen Ja pulse rate 63 /min Karen Ja weight E&M 166 [lb_av] Karen Ja height E&M 69.7 [in_i] Karen Ja Body Mass Index (Ratio) 24.17 kg/m2 Javi Shaffer MD blood pressure, cuff size regular Ri bry Ponce blood pressure, diastolic 68 mm[Hg] Ri bry Ponce blood pressure, systolic 108 mm[Hg] Andrew willy Ponce oxygen saturation, oximetry 96 % Paz Ponce respiratory rate E&M 16 /min Janelle Ponce pulse rate 52 /min Paz John son weight E&M 167 [lb_av] Paz John son height E&M 69.7 [in_i] Paz John son Body Mass Index (Ratio) 22.86 kg/m2 Javi Shaffer MD blood pressure, diastolic 79 mm[Hg] Maribel nkLogfabián blood pressure, systolic 135 mm[Hg] Nimco kLogfabián blood pressure, diastolic 79 mm[Hg] St sivan Martinez blood pressure, systolic 135 mm[Hg] Shiraz Martinez oxygen saturation, oximetry 98 % Laura Martinez pulse rate 49 /min Laura Martinez respiratory rate E&M 18 /min Laura Ellison milton weight E&M 158 [lb_av] Laura Martinez height E&M 69.7 [in_i] Laura Martinez Body Mass Index (Ratio) 22.72 kg/m2 Javi Shaffer MD blood pressure, diastolic 84 mm[Hg] Ca therine [place] blood pressure, systolic 145 mm[Hg] Cat herine [place] oxygen saturation, oximetry 92 % Skyla [place] respiratory rate E&M 16 /min Catheri ne Navjot pulse rate 51 /min Skyla [place] weight E&M 157 [lb_av] Skyla [place] blood pressure, cuff size regular Ca therine [place] height E&M 69.7 [in_i] Skyla Navjot Body Mass Index (Ratio) 22.72 kg/m2 Javi Shaffer MD blood pressure, diastolic 78 mm[Hg] Li nkLogic blood pressure, systolic 124 mm[Hg] Nimco kLogic blood pressure, cuff size regular Cy ntcortes Wood blood pressure, diastolic 78 mm[Hg] Cy nthia Wood blood pressure, systolic 124 mm[Hg] Steffany thijuan ramon Muir oxygen saturation, oximetry 98 % Mana Muir pulse rate 52 /min Mana Darwinbel l respiratory rate E&M 16 /min Mana Muir weight E&M 157 [lb_av] Mana Campbel l height E&M 69.7 [in_i] Mana Campbel l Body Mass Index (Ratio) 23.15 kg/m2 Javi Shaffer MD pulse rate 70 /min Mana Campbel l blood pressure, cuff size regular Cy todd Muir blood pressure, diastolic 74 mm[Hg] Cy todd Muir blood pressure, systolic 134 mm[Hg] Steffany sheree Muir oxygen saturation, oximetry 95 % Mana Muir respiratory rate E&M 16 /min Mana Muir weight E&M 160 [lb_av] Mana mccain height E&M 69.7 [in_i] Manasheree mccain Body Mass Index (Ratio) 24.31 kg/m2 Javi Shaffer MD blood pressure, diastolic 64 mm[Hg] To nsha Ricks blood pressure, systolic 113 mm[Hg] Ton [facility] respiratory rate E&M 16 /min Tonsha Ricks pulse rate 45 /min Tonsha Ricks oxygen saturation, oximetry 97 % Tonsha Ricks weight E&M 168 [lb_av] Tonsha Ricks height E&M 69.7 [in_i] Tonsha Ricks temperature site temporal Zahra Tank sley temperature E&M 97.7 [degF] Zahra Tanks gary Body Mass Index (Ratio) 22.43 kg/m2 Javi Shaffer MD blood pressure, resting Yes Tons tucker Ricks respiratory rate E&M 16 /min Tonsha Ricks blood pressure, diastolic 89 mm[Hg] To nsha Ricks blood pressure, systolic 159 mm[Hg] Ton sha Ricks pulse rate 51 /min Tonsha Ricks oxygen saturation, oximetry 92 % Tonsha Ricks weight E&M 155 [lb_av] Tonsha Ricks height E&M 69.7 [in_i] Tonsha Ricks Body Mass Index (Ratio) 23.30 kg/m2 Javi Shaffer MD blood pressure, cuff size regular Kr isty Che[place] blood pressure, diastolic 70 mm[Hg] Cholo Doyle blood pressure, systolic 138 mm[Hg] Tejal Doyle pulse rate 50 /min Ana Doyle oxygen saturation, oximetry 98 % Ana Doyle respiratory rate E&M 18 /min Ana weight E&M 161 [lb_av] Ana height E&M 69.7 [in_i] Ana Body Mass Index (Ratio) 23.15 kg/m2 Javi Shaffer MD blood pressure, diastolic 80 mm[Hg] Eliseo [facility] blood pressure, systolic 130 mm[Hg] Tc toledo [place] oxygen saturation, oximetry 96 % [facility] respiratory rate E&M 16 /min [facility] pulse rate 55 /min [facility] weight E&M 160 [lb_av] [facility] height E&M 69.7 [in_i] [facility] Body Mass Index (Ratio) 22.86 kg/m2 Javi Shaffer MD blood pressure, diastolic 82 mm[Hg] Dennis Bolanos blood pressure, systolic 138 mm[Hg] Tanvi Bolanos oxygen saturation, oximetry 97 % Alfonzo Bolanos respiratory rate E&M 18 /min Omaira Bolanos pulse rate 48 /min Alfonzo Chevy brenda weight E&M 158 [lb_av] Alfonzo Chevy prashanth height E&M 69.7 [in_i] Alfonzo gutierrez Body Mass Index (Ratio) 22.57 kg/m2 Javi Shaffer MD blood pressure, cuff size regular Ke cecilia Jimenez blood pressure, diastolic 80 mm[Hg] Ke rredwin Jimenez blood pressure, systolic 142 mm[Hg] Ker ri Dorothynenfisidroer oxygen saturation, oximetry 97 % Marisol Barbara respiratory rate E&M 16 /min Marisol G ireneenenfeldgeraldo pulse rate 51 /min Marisol Gruenejohne lder weight E&M 156 [lb_av] Marisol Gruenenfe lder height E&M 69.7 [in_i] Marisol Gruenenfe lder blood pressure, diastolic 60 mm[Hg] Dennis Bolanos blood pressure, systolic 110 mm[Hg] Tanvi Bolanos pulse rate 64 /min Alfonzo Reece tierraprashanth oxygen saturation, oximetry 97 % Alfonzo Bolanos respiratory rate E&M 16 /min Omaira blanco Bolanos Body Mass Index (Ratio) 23.93 kg/m2 Alma Rosa Bolanos weight E&M 165.4 [lb_av] Alfonzo Jenkins leslee blood pressure, diastolic 83 mm[Hg] Me alvarez Galaviz blood pressure, systolic 156 mm[Hg] Caryl robledoa Galaviz Body Mass Index (Ratio) 23.44 kg/m2 Estee miranda Galaviz pulse rate 60 /min Juli Galaviz oxygen saturation, oximetry 96 % Juli Galaviz respiratory rate E&M 14 /min Juli Galaviz weight E&M 162 [lb_av] Juli Galaviz Body Mass Index (Ratio) 23.44 kg/m2 Del Toro i Barbara blood pressure, diastolic 82 mm[Hg] Ke rri Dorothynesandie blood pressure, systolic 155 mm[Hg] Ker ri Barbara pulse rate 47 /min Marisol Grdaenejohne roberter oxygen saturation, oximetry 96 % Marisol Barbara respiratory rate E&M 16 /min Marisol Osorio ireneagustínsandie weight E&M 162 [lb_av] Marisol De La Cruzlissettjanice alvarez Body Mass Index (Ratio) 24.69 kg/m2 Ignacia Hicks blood pressure, murguia tolic, second observation 90 mm[Hg] Bobbi Hicks blood pressure, syst olic, second observation 146 mm[Hg] Bobbi Hicks blood pressure, diastolic 90 mm[Hg] Na vazquez Martinezoney blood pressure, systolic 146 mm[Hg] Triny krista Martinezoney pulse rate 99 /min Bobbi Martinezoney oxygen saturation, oximetry 96 % Bobbi Martinezoney respiratory rate E&M 17 /min Bobbi Hicks weight E&M 170 [lb_av] Bobbi Fabiola blood pressure, diastolic 77 mm[Hg] Ellis Henley RN blood pressure, systolic 139 mm[Hg] Darinel Henley RN pulse rate 47 /min Darinel Henley RN oxygen saturation, oximetry 93 % Darinel Henley RN respiratory rate E&M 16 /min Darinel jean RN Body Mass Index (Ratio) 25.27 kg/m2 Darinel Henley RN weight E&M 174 [lb_av] Darinel Henley RN Body Mass Index (Ratio) 26.61 kg/m2 Ricky bassett Manac[place] blood pressure, diastolic 84 mm[Hg] Zahira barrios [place] blood pressure, systolic 124 mm[Hg] Gregory sveilla [place] pulse rate 51 /min Enrrique [place] oxygen saturation, oximetry 99 % Enrrique [place] respiratory rate E&M 16 /min Enrrique [place] weight E&M 183.2 [lb_av] Enrrique [place] height E&M 69.7 [in_i] Enrrique [place] Body Mass Index (Ratio) 24.95 kg/m2 Sunil Cedillo'Glen blood pressure, diastolic 100 mm[Hg] Dennis QureshiGlen blood pressure, systolic 150 mm[Hg] Tanvi QureshiGlen weight in kilograms E&M 81.02 kg Sunil QureshiGlen height in centimeters E&M 180.34 cm Dennis QureshiGlen pulse rate 16 /min Inessa FaviolaGlen oxygen saturation, oximetry 99 % Inessa QureshiGlen respiratory rate E&M 16 /min Inessa FaviolaGlen weight E&M 178.25 [lb_av] Inessa FaviolaGlen height E&M 71 [in_i] [facility] blood pressure, diastolic 88 mm[Hg] Zahira barrios [place] blood pressure, systolic 124 mm[Hg] Gregory sevilla [place] pulse rate 52 /min Enrrique Gormanaco oxygen saturation, oximetry 96 % Enrrique Gormanaco respiratory rate E&M 16 /min Enrrique [place] weight E&M 162 [lb_av] Enrrique Gormanacop blood pressure, diastolic 90 mm[Hg] Ellis Henley RN blood pressure, systolic 147 mm[Hg] Darinel Henley RN pulse rate 53 /min Darinel Henley RN oxygen saturation, oximetry 100 % Darinel Henley RN respiratory rate E&M 20 /min Darinel jean RN weight E&M 185 [lb_av] Darinel Henley RN pulse rate 52 /min Darinel Henley RN oxygen saturation, oximetry 100 % Darinel Henley RN respiratory rate E&M 16 /min Darinel jean RN weight E&M 180 [lb_av] Darinel Henley RN blood pressure, diastolic 90 mm[Hg] Ellis Henley RN blood pressure, systolic 158 mm[Hg] Darinel Arellanoamanda MOSS pulse rate 49 /min Darinel Arellanoamanda MOSS oxygen saturation, oximetry 98 % Darinel Arellanoamanda MOSS respiratory rate E&M 20 /min Darinel Urbano bryceamanda MOSS weight E&M 183 [lb_av] Darinel Arellanoamanda MOSS blood pressure, diastolic 91 mm[Hg] Ellis mariah Arellanoamanda MOSS blood pressure, systolic 141 mm[Hg] Darinel Arellanoamanda MOSS pulse rate 56 /min Darinel Arellanoamanda MOSS oxygen saturation, oximetry 96 % Darinel Henley RN respiratory rate E&M 17 /min Darinel jean RN weight E&M 180 [lb_av] Darinel Henley RN ALLERGIES Allergy Name Onset Date Reaction Criticality Status PENICILLIN Low Criticality active RESULTS Date Observation Value Provider Reference Range Interpretation Location [facility], serum, [facility] HDL cholesterol, serum 63 mg/[facility] LDL cholesterol, serum 102 mg/dL [facility] cholesterol, serum 177 mg/dL [facility] calcium, serum 8.5 mg/dL [facility] (8.6-10.2) Low carbon dioxide, venous blood 26 mmol/L [facility] (20-32) chloride, serum 96 mmol/L [facility] (97-108) Low potassium, serum 4.8 mmol/L [facility] (3.5-5.2) sodium, serum 132 mmol/L [facility] (135-145) Low urea nitrogen/creatinine ratio, serum 13 [facility] (10-22) eGFR if 111 mL/min/{ 1.73_m2} [facility] ( >59) eGFR if not 96 mL/min/{ 1.73_m2} [facility] ( >59) creatinine, serum 0.79 mg/dL [facility] (0.76-1.27) urea nitrogen, blood 10 mg/dL [facility] (8-27) blood glucose, random 90 mg[facility]dL [facility] (65[facility] P[facility] patient 32.6 s glenn Tanvir prothrombin time (patient) 12.4 s [facility] international normalized ratio (INR) 0.96 [facility] calcium, serum 8.9 mg/dL [facility] creatinine, serum 0.89 mg/dL [facility] albumin/globulin ratio, serum 1.3 [facility] protein, total, serum 7.0 g/dL [facility] albumin, serum 4.0 g/dL [facility] bilirubin, serum, total 0.7 mg/dL [facility] alkaline phosphatase, serum 75 1/L [facility] alanine aminotransferase (SGPT), serum 35 1/L [facility] aspartate aminotransferase (SGOT), serum 17 1/L [facility] blood glucose, fasting 105 mg/dL [facility] urea nitrogen, blood 10.0 mg/dL [facility] carbon dioxide, serum, total 30.4 mmol/L [facility] chloride, serum 90.0 mmol/L [facility] potassium, serum 4.1 mmol/L [facility] sodium, serum 127 mmol/L [facility] monocytes as percent of blood leukocytes 11.3 % [facility] lymphocytes as percent of blood leukocytes 23.8 % [facility] platelet count 337 10*3/uL [facility] red blood cell distribution width 11.5 % [facility] mean corpuscular hemoglobin concentration, RBC 34.2 g/dL [facility] Tanvir mean corpuscular hemoglobin, RBC 33.2 pg Catalina Ramey mean corpuscular volume, RBC 97.0 fL Catalina Ramey hematocrit, blood 38.6 % Catalina Ramey hemoglobin, blood 13.2 g/dL Catalina Ramey erythrocyte (RBC) count 3.97 10*6/mm3 Catalina Ramey leukocyte count, blood 5.5 10*3/mm3 Catalina Ramey HISTORY OF MEDICATION USE Medication Status Instructions Dates Provider Indications Com ments metoprolol succinate 25 mg tablet extended release 24 hr completed Take 1 tablet by mouth once a day 09/03 - 09/25 Angie Shaffer MD Eliquis 5 mg tablet active Take 1 table t by mouth twice a day 06/25 David Ahrachelzai hydrochlorothiazide 25 mg tablet completed - 06/05 David Badillozaedwin amlodipine 10 mg tablet completed - 06/05 David Ahrachelzai hydrochlorothiazide 25 mg tablet completed TAKE 1 TABLET BY MOUTH EVERY DAY - 09/03 Daviddanyelle Badillozaedwin amlodipine 5 mg tablet active TAKE 1 TABLET BY MOUTH DAILY David Badillozaedwin buspirone 5 mg tablet active Take 1 tab let by mouth twice a day TAKE 1 TABLET BY MOUTH TWICE DAILY Marisol Jimenez Entresto 49-51 mg tablet active TAKE 1 TABLET BY MOUTH TWICE DAILY 01/22 David Ahmedzai buspirone 5 mg tablet completed Take 1 tab let by mouth twice a day 07/17 - Marisol Jimenez amlodipine 10 mg tablet completed TAKE 1 TABLET BY MOUTH DAILY - 01/22 David Ahmedzai Entresto 24-26 mg tablet completed TAKE 1 TABLET BY MOUTH TWICE DAILY - 01/22 David Sagemedzaedwin metoprolol succinate 100 mg tablet extended release 24 hr completed TAKE 1 AND 1/2 TABLETS BY MOUTH EVERY DAY - 09/03 David Ahmedzai hydrochlorothiazide 25 mg tablet completed TAKE 1 TABLET BY MOUTH DAILY - 01/22 David Russo metoprolol succinate 100 mg tablet extended release 24 hr completed TAKE 1 TABLET BY MOUTH EVERY DAY 06/05 - 08/09 Angie Shaffer MD lisinopril 40 mg tablet completed TAKE 1 TABLET BY MOUTH EVERY DAY 06/05 - 07/05 David Russo Entresto 24-26 mg tablet completed 1 tablet by mouth twice a day 05/30 - 08/09 Angie Shaffer MD montelukast 10 mg tablet active TAKE 1 TABLET BY MOUTH DAILY 11/12 Isaac Griffiths lisinopril 40 mg tablet completed Take 1 tablet by mouth once a day TAKE 1 TABLET BY MOUTH DAILY 07/09 - 05/30 Patricia Stewartmigljackson BAYP metoprolol succinate 100 mg tablet extended release 24 hr completed TAKE 1 TABLET BY MOUTH DAILY 07/09 - 06/05 Patricia Stewartnmaditya BAYP amlodipine 10 mg tablet completed TAKE 1 TABLET BY MOUTH DAILY 06/09 - 08/09 Angie Shaffer MD pregabalin 50 mg capsule active TAKE 1 CAPSULE BY MOUTH TWICE DAILY Angie Shaffer MD hydrocodone-acetamino phen 10-325 mg tablet active TAKE 1 TABLET BY MOUTH EVERY 6 HOURS NEEDED FOR PAIN Angie Shaffer MD trazodone 50 mg tablet active Angie Shaffer MD fluticasone propionate 50 mcg/actuation spray,suspension active USE 1 SPRAY IN EACH NOSTRIL ONCE DAILY. Angie Shaffer MD clindamycin HCl 150 mg capsule completed TAKE 4 CAPSULES BY MOUTH 1 HOUR BEFORE DENTAL PROCEDURE - 06/05 David Russo montelukast 10 mg tablet completed TAKE ONE TABLET BY MOUTH DAILY - 11/12 Genna Lewis hydrochlorothiazide 25 mg tablet completed TAKE 1 TABLET BY MOUTH DAILY 01/10 - 08/09 Angie Shaffer MD Eliquis 5 mg tablet completed TAKE 1 TABLE T BY MOUTH TWICE DAILY 01/10 - 06/25 Marisol Jimenez metoprolol succinate 100 mg tablet extended release 24 hr completed TAKE 1 AND 1/2 TABLETS BY MOUTH DAILY 01/10 - 07/09 Katie Madison Xarelto 20 mg tablet completed 1 tablet every night 06/23 - 09/29 Angie Shaffer MD amlodipine 10 mg tablet completed 1 tablet once a day 10/28 - 06/09 Adrian Arevalo lisinopril 40 mg tablet completed 1 tablet once a day 07/10 - 07/09 Angie Shaffer MD ELIQUIS 5 MG ORAL TABLET completed one tablet twice a day 07/10 - 06/23 Angie Shaffer MD montelukast 10 mg tablet completed Take 1 tablet once a day 08/29 - Katie Madison hydrochlorothiazide 25 mg tablet completed Take 1 tablet once a day 07/04 - 01/10 Katie Madison CLARITIN CAPSULE completed once daily as needed - Mana Muir AMLODIPINE 10MG completed TAKE ONE TABLET DAILY 02/09 - 07/10 Edgar Ricks LISINOPRIL 40MG completed TAKE ONE TABLET DAILY AT BEDTIME 06/09 - 07/10 Edgar Ricks CITALOPRAM HYDROBROMIDE 20 MG ORAL TABLET completed 1 daily - 01/10 Alfonzo Bolanos HYDROCHLOROTHIAZIDE 25 MG ORAL TABLET completed ONE TAB DAILY 01/25 - 01/10 Enrrique PRESLEYE completed 1 PUFF in each nostril TWICE DAILY 02/03 - 01/10 nIessa Magana GABAPENTIN 300 MG ORAL CAPSULE completed ONE TAB. DAILY - Darinel Henley RN LISINOPRIL TABS completed 40 mg at night - 10/09 Alma Rosa Bradley RN diclofenac potassium 50 mg tablet active 75 mg once a day Darinel Henley RN TRAZODONE HCL 50 MG TABS completed once a day - 05/30 Patricia Stewartmiaditya PLANT TAXONOMIST HYDROCODONE-ACETAMINO PHEN 7.5-750 MG ORAL TABLET completed 1 tablet by mouth - 05/30 Patricia Anshul LAMA alprazolam 1 mg tablet active 1 tablet by mouth Katie Madison omeprazole 20 mg capsule,delayed release(DR/EC) active 1 tablet once a day Darinel Henley RN PIROXICAM 20 MG ORAL CAPSULE completed ONCE DAILY - Darinel Henley RN HYDROCHLOROTHIAZIDE 25 MG ORAL TABLET completed TAKE 1 CAPSULE DAILY - 02/02 Angie Shaffer MD METHOCARBAMOL 750 MG ORAL TABLET completed ONCE DAILY - Darinel Henley RN metoprolol succinate 100 mg tablet extended release 24 hr completed Take 1.5 tablet by mouth once a day 05/26 - 01/10 Luís Child SOCIAL HISTORY Date Observation Value Provider drug use, illicit, d rug of choice marijuana [facility] drug use yes [facility] [facility] use, average drinks per day social [facility] alcohol use yes [facility] passive cigarette sm silva exposure no [facility] smoking status Never smoker [facility] drug use, illicit, d rug of choice marijuana [facility] drug use yes [facility] alcohol use, average drinks per day social [facility] alcohol use yes [facility] passive cigarette sm silva exposure no [facility] smoking status Never smoker [facility] drug use, illicit, d rug of choice marijuana [facility] drug use yes [facility] alcohol use, average drinks per day social [facility] alcohol use yes [facility] passive cigarette sm silva exposure no [facility] smoking status Never smoker David Russo drug use, illicit, d rug of choice marijuana Angie Shaffer MD drug use yes Angie Shaffer MD alcohol use, average drinks per day social Angie Shaffer MD alcohol use yes Angie Shaffer MD passive cigarette sm silva exposure no Angie Shaffer MD smoking status Never smoker Angie Shaffer MD social history revie wed E&M reviewed - no changes required Angie Shaffer MD social history E&M Marital Statu s: E thnicity: CaucasianMarital Status: L cristal with family/friends E thnicity: Smoking History: P ortiz has never smoked. Angie Shaffer MD social history revie wed E&M reviewed - no changes required Angie Shaffer MD physical exercise, frequency, days per week yes Karen Peres caffeine use, averag e drinks per day yes Karen Peres passive cigarette sm silva exposure no Karen Peres smoking status Never smoker Karen Peres social history E&M Marital Statu s: E thnicity: CaucasianMarital Status: L cristal with family/friends E thnicity: Smoking History: P ortiz has never smoked. David Russo physical exercise, frequency, days per week yes Paz Ponce caffeine use, averag e drinks per day yes Paz Ponce passive cigarette sm silva exposure no Paz Ponce smoking status Never smoker Paz bal social history revie wed E&M reviewed - no changes required David Russo social history E&M Marital Statu s: E thnicity: CaucasianMarital Status: L cristal with family/friends E thnicity: Smoking History: P ortiz has never smoked. Angie Shaffer MD drug use, illicit, d rug of choice marijuana Patricia Ventimiglia [facility] drug use yes Patricia wright [facility] alcohol use, average drinks per day social Patricia Landers [facility] alcohol use yes Patricia wright [facility] physical exercise, frequency, days per week yes Laura Juan caffeine use, averag e drinks per day yes Laurataty Martinez passive cigarette sm silva exposure no Laurataty Martinez smoking status Never smoker Laura Juan social history revie wed E&M reviewed - no changes required Anige Shaffer MD physical exercise, frequency, days per week yes Skyla Navjot caffeine use, averag e drinks per day yes Skyla Navjot passive cigarette sm silva exposure no Skyla Pownal smoking status Never smoker Skyla Latosha s social history revie wed E&M reviewed - no changes required Angie Shaffer MD physical exercise, frequency, days per week yes Mana Muir caffeine use, averag e drinks per day yes Mana Muir passive cigarette sm silva exposure no Mana Muir smoking status Never smoker Mana beltrán social history revrachna wed E&M reviewed - no changes required Angie Shaffer MD social history E&M Marital Statu s: E thnicity: CaucasianMarital Status: L cristal with family/friends E thnicity: Smoking History: P atsolomon has never smoked. Adrian Arevalo social history revrachna wed E&M reviewed - no changes required Adrian Arevalo physical exercise, frequency, days per week yes Mana Muir caffeine use, averag e drinks per day yes Mana Muir passive cigarette sm silva exposure no Mana Muir smoking status Never smoker Mana beltrán social history E&M Marital Statu s: E thnicity: CaucasianMarital Status: L cristal with family/friends E thnicity: Smoking History: P atient has never smoked. Angie Shaffer MD social history revie wed E&M reviewed - no changes required Angie Shaffer MD physical exercise, frequency, days per week yes [facility] caffeine use, averag e drinks per day yes [facility] passive cigarette sm silva exposure no [facility] smoking status Never smoker [facility] social history E&M Marital Statu s: E thnicity: CaucasianMarital Status: L cristal with family/friends E thnicity: Smoking History: P atient has never smoked. Angie Shaffer MD physical exercise, frequency, days per week yes Angie Shaffer MD caffeine use, averag e drinks per day yes Angie Shaffer MD passive cigarette sm silva exposure no Angie Shaffer MD smoking status Never smoker Angie Shaffer MD social history revie wed E&M reviewed - no changes required Angie Shaffer MD social history E&M Marital Statu s: E thnicity: CaucasianMarital Status: L cristal with family/friends E thnicity: S moking History: P ortiz has never smoked. Angie Shaffer MD social history revie wed E&M reviewed - no changes required Angie Shaffer MD social history E&M Marital Statu s: E thnicity: CaucasianMarital Status: L cristal with family/friends E thnicity: Smoking History: P atient has never smoked. Angie Shaffer MD social history revie wed E&M reviewed - no changes required Angie Shaffer MD number of grandchildren Angie robertson Bender physical exercise, frequency, days per week yes [place] Bender alcohol use, average drinks per day [facility] [place] caffeine use, averag e drinks per day yes Miky Bender drug use none Miky Bender passive cigarette sm silva exposure no Miky Bender smoking status Never smoker Miky taylor social history revie wed E&M reviewed - no changes required Angie Shaffer MD physical exercise, frequency, days per week yes Alfonzo Bolanos alcohol use, average drinks per day social AlfonzoLucille Bolanos alcohol use yes Alfonzo Reece brenda caffeine use, averag e drinks per day yes Alfonzo Bolanos drug use none Alfonzo Reece tierraon passive cigarette sm silva exposure no AlfonzoLucille Bolanos smoking status Never smoker Alfonzo Dean social history revie wed E&M reviewed - no changes required Angie Shaffer MD physical exercise, frequency, days per week yes Marisol Jimenez alcohol use, average drinks per day social Marisol Jimenez alcohol use yes Marisol pino caffeine use, averag e drinks per day yes Marisol Jimenez drug use none Marisol joneser passive cigarette sm silva exposure no Marisol Jimenez smoking status Never smoker Marisol payne physical exercise, frequency, days per week yes Alfonzo Bolanos alcohol use, average drinks per day social Alfonzo Bolanos alcohol use yes Alfonzo Chevy brenda caffeine use, averag e drinks per day yes Alfonzo Bolanos drug use none Alfonzo Chevy brenda passive cigarette sm silva exposure no Alfonzo Bolanos smoking status Never smoker Alfonzo Dean social history revie wed E&M reviewed - no changes required Angie Shaffer MD physical exercise, frequency, days per week yes Juli Galaviz alcohol use, average drinks per day social Juli Galaviz alcohol use yes Juli Galaviz caffeine use, averag e drinks per day yes Juli Saleemann drug use none Juli Galaviz passive cigarette sm silva exposure no Juli Galaviz smoking status Never smoker Juli Swenson mariah social history revie wed E&M reviewed - no changes required Angie Shaffer MD alcohol use, average drinks per day social Marisol Jimenez alcohol use yes Marisol Jose Maria pino smoking status Never smoker Marisol payne social history revie wed E&M reviewed Angie Shaffer MD social history revie wed E&M reviewed Darinel Henley RN social history E&M Marital Statu s: E thnicity: CaucasianMarital Status: L cristal with family/friends E thnicity: Angie Shaffer MD social history revie wed E&M reviewed Angie Shaffer MD drug use none Angie Shaffer MD passive cigarette sm silva exposure no Enrrique Sususan drug use none Angie Shaffer MD social history revie wed E&M reviewed Angie Shaffer MD smoking status never smoker Inessa Izzy social history revie wed E&M reviewed Darinel Henley RN social history revie wed E&M reviewed Darinel Henley RN social history revie wed E&M reviewed Darinel Henley RN social history revie wed E&M reviewed Angie Shaffer MD physical exercise, frequency, days per week yes [employer] caffeine use, averag e drinks per day yes [employer] alcohol use, average drinks per day 1-3 drinks per day [employer] smoking status Non-smoker [facility] social history E&M Marital Statu s: E thnicity: Angie Shaffer MD social history revie wed E&M reviewed Angie Shaffer MD physical exercise, frequency, days per week yes [facility] caffeine use, averag e drinks per day yes [facility], average drinks per day 1-3 drinks per day [facility] smoking status Non-smoker [facility] MENTAL STATUS Date Observation Value Provider assessment of judgme nt and insight E&M Alert and oriented to time, place and person. Mood and affect are normal. Angie Shaffer MD assessment of judgme nt and insight E&M Alert and oriented to time, place and person. Mood and affect are normal. Darinel Henley RN assessment of judgme nt and insight E&M Alert and oriented to time, place and person. Mood and affect are normal. Angie Shaffer MD assessment of judgme nt and insight E&M Alert and oriented to time, place and person. Mood and affect are normal. Anige Shaffer MD assessment of judgme nt and insight E&M Alert and oriented to time, place and person. Mood and affect are normal. Darinel Henley RN assessment of judgme nt and insight E&M Alert and oriented to time, place and person. Mood and affect are normal. Darinel Henley RN assessment of judgme nt and insight E&M Alert and oriented to time, place and person. Mood and affect are normal. Darinel Henley RN assessment of judgme nt and insight E&M Alert and oriented to time, place and person. Mood and affect are normal. Angie Shaffer MD assessment of judgme nt and insight E&M Alert and oriented to time, place and person. Mood and affect are normal. Angie Shaffer MD FAMILY HISTORY Family Member Condition Father Family History of Hy pertension: Mother Family History of CV A or Stroke: INSURANCE PROVIDERS Payer name Policy type / Coverage type [place] [employer] party ID [employer] [id number] [place] Medicare [id number] ADVANCE DIRECTIVES Name Date DISCUSSED - NO DECISION MADE TREATMENT PLAN Date Name Performer [id number],S, Angie Shaffer MD [id number],B, Angie Shaffer MD [id number],S, Angie Shaffer MD [id number],S, Angie Shaffer MD [id number],S, Angie Shaffer MD [id number],B, Angie Shaffer MD [id number],B, Angie Shaffer MD [id number],B, Angie Shaffre MD [id number],B, Angie Shaffer MD [id number],B, Angie Shaffer MD [id number],B, Angie Shaffer MD [id number],S, David Braswell i [id number],S, David Sagemedza i [id number],S, David Ahmedza i [id number],S, David Sagemedza i [id number],S, David Ahmedza i [id number],S, David Ahmedza i [id number],C, T he following medications were removed from the medication list: Lisinopril 40 Mg Tablet (Lisinopril) ..... Take 1 tablet by mouth once a day take 1 tablet by mouth daily H is updated medication list for this problem includes: Metoprolol Succinate 100 Mg Tablet Extended Release 24 Hr (Metoprolol succinate) ..... Take 1 tablet by mouth daily Entresto 24-26 Mg Tablet (Sacubitril-valsartan) ..... 1 tablet by mouth twice a day Hydrochlorothiazide 25 Mg Tablet (Hydrochlorothiazide) ..... Take 1 tablet by mouth daily Amlodipine 10 Mg Tablet (Amlodipine) ..... Take 1 tablet by mouth daily [facility] [id number],C,LDL 102 on re cent labs [facility] [id number],C, T he following medications were removed from the medication list: Lisinopril 40 Mg Tablet (Lisinopril) ..... Take 1 tablet by mouth once a day take 1 tablet by mouth daily H is updated medication list for this problem includes: Lisinopril 40 Mg Tablet (Lisinopril) ..... Take 1 tablet by mouth once a day take 1 tablet by mouth daily Metoprolol Succinate 100 Mg Tablet Extended Release 24 Hr (Metoprolol succinate) ..... Take 1 1/2 tablet by mouth once a day take 1 and 1/2 tablets by mouth daily Amlodipine 10 Mg Tablet (Amlodipine) ..... Take 1 tablet by mouth daily [facility] [id number],C,M oderate on F/U echo today. Meds adjusted. will return in one month [facility] [id number],B,r elisabeth in NSR he is bradycardic on exam today and given AI we will decrase his BB dose back. continue xarelto for AC. No reports of obvious bleeding T he following medications were removed from the medication list: Lisinopril 40 Mg Tablet (Lisinopril) ..... Take 1 tablet by mouth once a day take 1 tablet by mouth daily His updated medication list for this problem includes: Lisinopril 40 Mg Tablet (Lisinopril) ..... Take 1 tablet by mouth once a day take 1 tablet by mouth daily Metoprolol Succinate 100 Mg Tablet Extended Release 24 Hr (Metoprolol succinate) ..... Take 1 1/2 tablet by mouth once a day take 1 and 1/2 tablets by mouth daily Amlodipine 10 Mg Tablet (Amlodipine) ..... Take 1 tablet by mouth daily Patricia Bloodglia [facility] [id number],C,remains on xa relto for AC Patricia Ventimiglia [facility] [id number],S, David Ahmedza i [id number],S, David Ahmedza i [id number],S, David Ahmedza i [id number],S, David Ahmedza i [id number],S, David Ahmedza i [id number],B, David medza i [id number],W, Angie Shaffer MD [id number],S, Angie Shaffer MD [id number],B,Tawanda Shaffer MD [id number],S, Angie Shaffer MD [id number],S, Angie Shaffer MD [id number],S, H is updated medication list for this problem includes: Lisinopril 40 Mg Tablet (Lisinopril) ..... 1 tablet once a day Amlodipine 10 Mg Tablet (Amlodipine) ..... 1 tablet once a day Metoprolol Succinate 100 Mg Tablet Extended Release 24 Hr (Metoprolol succinate) ..... Take 1 and 1/2 tablets by mouth daily Angie Shaffer MD [id number],S,Aguilaies CP Jeff q Allam [id number],S, Shafiq All am [id number],S, Shaq All am Cardiology: O rders: C OMPREHENSIVE METABOLIC PANEL, W/EGFR (79213) C BC (INCLUDES DIFF/PLT) (6399) F ERRITIN (457) I ROSANGELA AND TOTAL IRON BINDING CAPACITY (7573) L IPID PANEL (7600) PROBNP, N TERMINAL (51408) P ROTHROMBIN TIME WITH INR (8847) V itamin D, 25-Hydroxy (788774) Angie Shaffer MD Cardiology: T he following medications were removed from the medication list: Hydrochlorothiazide 25 Mg Tablet (Hydrochlorothiazide) ..... Take 1 tablet by mouth every day His updated medication list for this problem includes: Metoprolol Succinate Er 50 Mg Tablet,extended Release 24 Hr (Metoprolol succinate) ..... Take 1 tablet by mouth every day Amlodipine 5 Mg Tablet (Amlodipine) ..... Take 1 tablet by mouth daily Metoprolol Succinate 100 Mg Tablet Extended Release 24 Hr (Metoprolol succinate) ..... Take 1 and 1/2 tablets by mouth every day BP today: 129/70 P rior BP: 111/74 (06/05/2024) Labs Reviewed: C reat: 0.79 (02/09/2011) C hol: 177 (01/04/2022) HDL: 63 (01/04/2022) LDL: 102 (01/04/2022) T (01/04/2022) Orders: C OMPREHENSIVE METABOLIC PANEL, W/EGFR (01100) C BC (INCLUDES DIFF/PLT) (6399) F ERRITIN (457) I ROSANGELA AND TOTAL IRON BINDING CAPACITY (7573) L IPID PANEL (7600) P ROBNP, N TERMINAL (53715) P ROTHROMBIN TIME WITH INR (8847) V itamin D, 25-Hydroxy (398894) Angie Shaffer MD Cardiology: O rders: C OMPREHENSIVE METABOLIC PANEL, W/EGFR (38543) C BC (INCLUDES DIFF/PLT) (6399) F ERRITIN (457) I ROSANGELA AND TOTAL IRON BINDING CAPACITY (7573) L IPID PANEL (7600) PROBNP, N TERMINAL (88165) P ROTHROMBIN TIME WITH INR (8847) V itamin D, 25-Hydroxy (066877) Angie Shaffer MD Cardiology: O rders: C OMPREHENSIVE METABOLIC PANEL, W/EGFR (15381) C BC (INCLUDES DIFF/PLT) (6399) F ERRITIN (457) I ROSANGELA AND TOTAL IRON BINDING CAPACITY (7573) L IPID PANEL (7600) PROBNP, N TERMINAL (65540) P ROTHROMBIN TIME WITH INR (8847) V itamin D, 25-Hydroxy (401437) Angie Shaffer MD Cardiology:This visi t has been a part of the consistent, comprehensive, and ongoing management of the chronic medical condition(s) listed above for the patient. His updated medication list for this problem includes: Metoprolol Succinate Er 50 Mg Tablet,extended Release 24 Hr (Metoprolol succinate) ..... Take 1 tablet by mouth every day Amlodipine 5 Mg Tablet (Amlodipine) ..... Take 1 tablet by mouth daily Metoprolol Succinate 100 Mg Tablet Extended Release 24 Hr (Metoprolol succinate) ..... Take 1 and 1/2 tablets by mouth every day Orders: C OMPREHENSIVE METABOLIC PANEL, W/EGFR (57749) C BC (INCLUDES DIFF/PLT) (6399) F ERRITIN (457) I ROSANGELA AND TOTAL IRON BINDING CAPACITY (7573) L IPID PANEL (7600) P ROBNP, N TERMINAL (02970) P ROTHROMBIN TIME WITH INR (8847) V itamin D, 25-Hydroxy (779177) Angie Shaffer MD Cardiology: T he following medications were removed from the medication list: Hydrochlorothiazide 25 Mg Tablet (Hydrochlorothiazide) ..... Take 1 tablet by mouth every day His updated medication list for this problem includes: Metoprolol Succinate Er 50 Mg Tablet,extended Release 24 Hr (Metoprolol succinate) ..... Take 1 tablet by mouth every day Amlodipine 5 Mg Tablet (Amlodipine) ..... Take 1 tablet by mouth daily Metoprolol Succinate 100 Mg Tablet Extended Release 24 Hr (Metoprolol succinate) ..... Take 1 and 1/2 tablets by mouth every day Orders: COMPREHENSIVE METABOLIC PANEL, W/EGFR (89389) C BC (INCLUDES DIFF/PLT) (6399) F ERRITIN (457) I ROSANGELA AND TOTAL IRON BINDING CAPACITY (7573) L IPID PANEL (7500) P ROBNP, N TERMINAL (59566) P ROTHROMBIN TIME WITH INR (8847) V itamin D, 25-Hydroxy (519173) Angie Shaffer MD Cardiology: T he following medications were removed from the medication list: Amlodipine 10 Mg Tablet (Amlodipine) His updated medication list for this problem includes: Amlodipine 10 Mg Tablet (Amlodipine) ..... Take 1 tablet by mouth daily Metoprolol Succinate 100 Mg Tablet Extended Release 24 Hr (Metoprolol succinate) ..... Take 1 and 1/2 tablets by mouth every day Angie Shaffer MD Cardiology Angie Shaffer MD Cardiology Angie Shaffer MD Cardiology: T he following medications were removed from the medication list: Amlodipine 10 Mg Tablet (Amlodipine) His updated medication list for this problem includes: Amlodipine 10 Mg Tablet (Amlodipine) ..... Take 1 tablet by mouth daily Metoprolol Succinate 100 Mg Tablet Extended Release 24 Hr (Metoprolol succinate) ..... Take 1 and 1/2 tablets by mouth every day Angie Shaffer MD Cardiology:This visi t has been a part of the consistent, comprehensive, and ongoing management of the chronic medical condition(s) listed above for the patient. BP today: 111/74 P rior BP: 124/70 (01/23/2024) Labs Reviewed: C reat: 0.79 (02/09/2011) T he following medications were removed from the medication list: Amlodipine 10 Mg Tablet (Amlodipine) Hydrochlorothiazide 25 Mg Tablet (Hydrochlorothiazide) His updated medication list for this problem includes: Hydrochlorothiazide 25 Mg Tablet (Hydrochlorothiazide) ..... Take 1 tablet by mouth every day Amlodipine 10 Mg Tablet (Amlodipine) ..... Take 1 tablet by mouth daily Metoprolol Succinate 100 Mg Tablet Extended Release 24 Hr (Metoprolol succinate) ..... Take 1 and 1/2 tablets by mouth every day Angie Shaffer MD Cardiology: His updated medication list for this problem includes: Hydrochlorothiazide 25 Mg Tablet (Hydrochlorothiazide) ..... Take 1 tablet by mouth every day Amlodipine 10 Mg Tablet (Amlodipine) ..... Take 1 tablet by mouth daily Metoprolol Succinate 100 Mg Tablet Extended Release 24 Hr (Metoprolol succinate) ..... Take 1 and 1/2 tablets by mouth every day [facility] Cardiology:This visi t has been a part of the consistent, comprehensive, and ongoing management of the chronic medical condition(s) listed above for the patient. The following medications were removed from the medication list: Amlodipine 10 Mg Tablet (Amlodipine) ..... Take 1 tablet by mouth daily His updated medication list for this problem includes: Metoprolol Succinate 100 Mg Tablet Extended Release 24 Hr (Metoprolol succinate) ..... Take 1 and 1/2 tablets by mouth every day Angie Shaffer MD Cardiology: T he following medications were removed from the medication list: Amlodipine 10 Mg Tablet (Amlodipine) ..... Take 1 tablet by mouth daily His updated medication list for this problem includes: Metoprolol Succinate 100 Mg Tablet Extended Release 24 Hr (Metoprolol succinate) ..... Take 1 and 1/2 tablets by mouth every day [facility] Cardiology: T he following medications were removed from the medication list: Amlodipine 10 Mg Tablet (Amlodipine) ..... Take 1 tablet by mouth daily His updated medication list for this problem includes: Metoprolol Succinate 100 Mg Tablet Extended Release 24 Hr (Metoprolol succinate) ..... Take 1 and 1/2 tablets by mouth every day [facility]iology [facility] Cardiology: T he following medications were removed from the medication list: Hydrochlorothiazide 25 Mg Tablet (Hydrochlorothiazide) ..... Take 1 tablet by mouth daily Amlodipine 10 Mg Tablet (Amlodipine) ..... Take 1 tablet by mouth daily His updated medication list for this problem includes: Metoprolol Succinate 100 Mg Tablet Extended Release 24 Hr (Metoprolol succinate) ..... Take 1 and 1/2 tablets by mouth every day BP today: 124/70 P rior BP: 134/74 (07/18/2023) Labs Reviewed: C reat: 0.79 (02/09/2011) C hol: 177 (01/04/2022) HDL: 63 (01/04/2022) LDL: 102 (01/04/2022) T (01/04/2022) [facility] Cardiology: O rders: C omplete Echo (04783) [facility] Cardiology: O rders: C omplete Echo (67881) [facility] Cardiology: T he following medications were removed from the medication list: Hydrochlorothiazide 25 Mg Tablet (Hydrochlorothiazide) ..... Take 1 tablet by mouth daily Amlodipine 10 Mg Tablet (Amlodipine) ..... Take 1 tablet by mouth daily His updated medication list for this problem includes: Metoprolol Succinate 100 Mg Tablet Extended Release 24 Hr (Metoprolol succinate) ..... Take 1 and 1/2 tablets by mouth every day [facility] Cardiology:Pt denies any CP or SOB. H is updated medication list for this problem includes: Amlodipine 10 Mg Tablet (Amlodipine) ..... Take 1 tablet by mouth daily Metoprolol Succinate 100 Mg Tablet Extended Release 24 Hr (Metoprolol succinate) ..... Take 1 and 1/2 tablets by mouth every day [facility] Cardiology: B P today: 134/74 P rior BP: 136/69 (01/31/2023) Labs Reviewed: C reat: 0.79 (02/09/2011) C hol: 177 (01/04/2022) HDL: 63 (01/04/2022) LDL: 102 (01/04/2022) T (01/04/2022) His updated medication list for this problem includes: Hydrochlorothiazide 25 Mg Tablet (Hydrochlorothiazide) ..... Take 1 tablet by mouth daily Amlodipine 10 Mg Tablet (Amlodipine) ..... Take 1 tablet by mouth daily Metoprolol Succinate 100 Mg Tablet Extended Release 24 Hr (Metoprolol succinate) ..... Take 1 and 1/2 tablets by mouth every day [facility]: H is updated medication list for this problem includes: Hydrochlorothiazide 25 Mg Tablet (Hydrochlorothiazide) ..... Take 1 tablet by mouth daily Amlodipine 10 Mg Tablet (Amlodipine) ..... Take 1 tablet by mouth daily Metoprolol Succinate 100 Mg Tablet Extended Release 24 Hr (Metoprolol succinate) ..... Take 1 and 1/2 tablets by mouth every day [facility]: H is updated medication list for this problem includes: Amlodipine 10 Mg Tablet (Amlodipine) ..... Take 1 tablet by mouth daily Metoprolol Succinate 100 Mg Tablet Extended Release 24 Hr (Metoprolol succinate) ..... Take 1 and 1/2 tablets by mouth every day [facility] David Russo Cardiology Angie Shaffer MD Cardiology Angie Shaffer MD Cardiology Angie Shaffer MD Cardiology Angie Shaffer MD Cardiology Angie Shaffer MD Cardiology Angie Shaffer MD Cardiology Angie Shaffer MD Cardiology Angie Shaffer MD Cardiology Angie Shaffer MD Cardiology Angie Shaffer MD Cardiology Angie Shaffer MD Cardiology David Ahmedzai Cardiology David Ahmedzai Cardiology David Ahmedzai Cardiology David Ahmedzai Cardiology David Ahmedzai Cardiology David Ahmedzai Cardiology: T he following medications were removed from the medication list: Lisinopril 40 Mg Tablet (Lisinopril) ..... Take 1 tablet by mouth once a day take 1 tablet by mouth daily & #13;His updated medication list for this problem includes: Metoprolol Succinate 100 Mg Tablet Extended Release 24 Hr (Metoprolol succinate) ..... Take 1 tablet by mouth daily Entresto 24-26 Mg Tablet (Sacubitril-valsartan) ..... 1 tablet by mouth twice a day Hydrochlorothiazide 25 Mg Tablet (Hydrochlorothiazide) ..... Take 1 tablet by mouth daily Amlodipine 10 Mg Tablet (Amlodipine) ..... Take 1 tablet by mouth daily [facility] Cardiology:LDL 102 on recent lab s [facility] Cardiology: T he following medications were removed from the medication list: Lisinopril 40 Mg Tablet (Lisinopril) ..... Take 1 tablet by mouth once a day take 1 tablet by mouth daily & #13;His updated medication list for this problem includes: Lisinopril 40 Mg Tablet (Lisinopril) ..... Take 1 tablet by mouth once a day take 1 tablet by mouth daily Metoprolol Succinate 100 Mg Tablet Extended Release 24 Hr (Metoprolol succinate) ..... Take 1 1/2 tablet by mouth once a day take 1 and 1/2 tablets by mouth daily Amlodipine 10 Mg Tablet (Amlodipine) ..... Take 1 tablet by mouth daily [facility] Cardiology:Moderate on F/U echo today. Meds adjusted. will return in one month [facility] Cardiology:remains i n NSR he is bradycardic on exam today and given AI we will decrase his BB dose back. continue xarelto for AC. No reports of obvious bleeding T he following medications were removed from the medication list: Lisinopril 40 Mg Tablet (Lisinopril) ..... Take 1 tablet by mouth once a day take 1 tablet by mouth daily His updated medication list for this problem includes: Lisinopril 40 Mg Tablet (Lisinopril) ..... Take 1 tablet by mouth once a day take 1 tablet by mouth daily Metoprolol Succinate 100 Mg Tablet Extended Release 24 Hr (Metoprolol succinate) ..... Take 1 1/2 tablet by mouth once a day take 1 and 1/2 tablets by mouth daily Amlodipine 10 Mg Tablet (Amlodipine) ..... Take 1 tablet by mouth daily Angie Shaffer MD Cardiology:remains on xarelto fo r AC Angie Shaffer MD Cardiology David Ahmedzai Cardiology David Ahmedzai Cardiology David Ahmedzai Cardiology David Ahmedzai Cardiology David Ahmedzai Cardiology David Ahmedzai Cardiology Angie Shaffer MD Cardiology Angie Shaffer MD Cardiology:Tawanda antonio MD Cardiology Angie Shaffer MD Cardiology Angie Shaffer MD Cardiology: H is updated medication list for this problem includes: Lisinopril 40 Mg Tablet (Lisinopril) ..... 1 tablet once a day Amlodipine 10 Mg Tablet (Amlodipine) ..... 1 tablet once a day Metoprolol Succinate 100 Mg Tablet Extended Release 24 Hr (Metoprolol succinate) ..... Take 1 and 1/2 tablets by mouth daily Angie Shaffer MD [facility] Card[facility] Cardiology follow up Adrian Arevalo Cardiology follow up Adrian Arevalo Cardiology follow up Adrian Latift Cardiology follow up Adrian Latift Cardiology follow up Adrian Arevaol Cardiology follow up Adrian Arevalo Cardiology Angie Shaffer MD Cardiology Angie Shaffer MD Cardiology Angie Shaffer MD Cardiology Angie Shaffer MD Cardiology Angie Shaffer MD Cardiology Angie Shaffer MD Cardiology Angie Shaffer MD Cardiology Angie Shaffer MD Cardiology Angie Shaffer MD Cardiology Angie Shaffer MD Cardiology Angie Shaffer MD Cardiology: B P today: 138/70 P rior BP: 130/80 (08/29/2018) Labs Reviewed: C reat: 0.79 (02/09/2011) Angie Shaffer MD Cardiology Angie Shaffer MD Cardiology Angie Shaffer MD Cardiology: B P today: 138/70 P rior BP: 130/80 (08/29/2018) Labs Reviewed: C reat: 0.79 (02/09/2011) Angie Shaffer MD Cardiology Angie Shaffer MD Cardiology:Will repe at his echo at one year follow up. Angie Shaffer MD Cardiology Angie Shaffer MD Cardiology Angie Shaffer MD Cardiology: c hekc ischemic evaluation with stress test for likely upcoming neck surgery Angie Shaffer MD Cardiology Angie Shaffer MD Cardiology Angie Shaffer MD Cardiology Angie Shaffer MD Cardiology Angie Shaffer MD Cardiology Angie Shaffer MD Cardiology Angie Shaffer MD Cardiology Angie Shaffer MD Cardiology Follow up Angie antonio MD Cardiology Follow up Angie antonio MD Cardiology Follow up Angie antonio MD Cardiology Follow up Angie antonio MD Cardiology Angie Shaffer MD Cardiology Angie Shaffer MD Cardiology Angie Shaffer MD Cardiology Angie Shaffer MD Cardiology Angie Shaffer MD Cardiology Angie Shaffer MD Cardiology Angie Shaffer MD Cardiology:pt will check bp at h ome Angie Shaffer MD Cardiology Angie Shaffer MD Cardiology Angie Shaffer MD follow up : H is updated medication list for this problem includes: Metoprolol Succinate 100 Mg Tb24 (Metoprolol succinate) ..... Take one a day Lisinopril Tabs (Lisinopril tabs) ..... 40 mg at night BP today: 146/90 P rior BP: 139/77 (03/05/2013) Labs Reviewed: C reat: 0.79 (02/09/2011) Angie Shaffer MD follow up : H is updated medication list for this problem includes: Metoprolol Succinate 100 Mg Tb24 (Metoprolol succinate) ..... Take one a day Lisinopril Tabs (Lisinopril tabs) ..... 40 mg at night BP today: 146/90 Prior BP: 139/77 (03/05/2013) N uclear Stress Findings: 1. Normal myocardial perfusion imaging after vasodilator stress with Regadenoson. 2 . Normal left ventricular size with reduced systolic function with a calculated ejection fraction of 36%. 3 . LV dilatation with pharmocological stress. 4 . No obvious significant scintigraphic evidence of myocardial ischemia or scar. - CNE (02/10/2012) H gb: 13.2 (01/15/2011) HCT: 38.6 (01/15/2011) RBC: 3.97 (01/15/2011) WBC: 5.5 (01/15/2011) B UN: 10 (02/09/2011) Creat: 0.79 (02/09/2011) Glucose: 90 (02/09/2011) N a+: 132 (02/09/2011) K+: 4.8 (02/09/2011) Cl: 96 (02/09/2011) SGOT (AST): 17 (01/15/2011) SGPT (ALT): 35 (01/15/2011) Angie Shaffer MD follow up : H is updated medication list for this problem includes: Metoprolol Succinate 100 Mg Tb24 (Metoprolol succinate) ..... Take one a day Lisinopril Tabs (Lisinopril tabs) ..... 40 mg at night BP today: 146/90 Prior BP: 139/77 (03/05/2013) N uclear Stress Findings: 1. Normal myocardial perfusion imaging after vasodilator stress with Regadenoson. 2 . Normal left ventricular size with reduced systolic function with a calculated ejection fraction of 36%. 3 . LV dilatation with pharmocological stress. 4 . No obvious significant scintigraphic evidence of myocardial ischemia or scar. - CNE (02/10/2012) H gb: 13.2 (01/15/2011) HCT: 38.6 (01/15/2011) RBC: 3.97 (01/15/2011) WBC: 5.5 (01/15/2011) B UN: 10 (02/09/2011) Creat: 0.79 (02/09/2011) Glucose: 90 (02/09/2011) N a+: 132 (02/09/2011) K+: 4.8 (02/09/2011) Cl: 96 (02/09/2011) PT: 12.4 (01/15/2011) INR: 0.96 (01/15/2011) P TT: 32.6 (01/15/2011) Angie Shaffer MD routine Angie Shaffer MD routine : H is updated medication list for this problem includes: Metoprolol Succinate 100 Mg Tb24 (Metoprolol succinate) ..... Take one a day Lisinopril Tabs (Lisinopril tabs) ..... 40 mg at night Prior BP: 124/84 (02/14/2012) Labs Reviewed: C reat: 0.79 (02/09/2011) Angie Shaffer MD routine : B P today: / Prior BP: 124/84 (02/14/2012) Angie Shaffer MD routine : H is updated medication list for this problem includes: Metoprolol Succinate 100 Mg Tb24 (Metoprolol succinate) ..... Take one a day Lisinopril Tabs (Lisinopril tabs) ..... 40 mg at night BP today: / Prior BP: 124/84 (02/14/2012) N uclear Stress Findings: 1. Normal myocardial perfusion imaging after vasodilator stress with Regadenoson. 2 . Normal left ventricular size with reduced systolic function with a calculated ejection fraction of 36%. 3 . LV dilatation with pharmocological stress. 4 . No obvious significant scintigraphic evidence of myocardial ischemia or scar. - CNE (02/10/2012) H gb: 13.2 (01/15/2011) HCT: 38.6 (01/15/2011) RBC: 3.97 (01/15/2011) WBC: 5.5 (01/15/2011) B UN: 10 (02/09/2011) Creat: 0.79 (02/09/2011) Glucose: 90 (02/09/2011) N a+: 132 (02/09/2011) K+: 4.8 (02/09/2011) Cl: 96 (02/09/2011) SGOT (AST): 17 (01/15/2011) SGPT (ALT): 35 (01/15/2011) Angie Shaffer MD routine : H is updated medication list for this problem includes: Metoprolol Succinate 100 Mg Tb24 (Metoprolol succinate) ..... Take one a day Lisinopril Tabs (Lisinopril tabs) ..... 40 mg at night BP today: / Prior BP: 124/84 (02/14/2012) N uclear Stress Findings: 1. Normal myocardial perfusion imaging after vasodilator stress with Regadenoson. 2 . Normal left ventricular size with reduced systolic function with a calculated ejection fraction of 36%. 3 . LV dilatation with pharmocological stress. 4 . No obvious significant scintigraphic evidence of myocardial ischemia or scar. - CNE (02/10/2012) H gb: 13.2 (01/15/2011) HCT: 38.6 (01/15/2011) RBC: 3.97 (01/15/2011) WBC: 5.5 (01/15/2011) B UN: 10 (02/09/2011) Creat: 0.79 (02/09/2011) Glucose: 90 (02/09/2011) N a+: 132 (02/09/2011) K+: 4.8 (02/09/2011) Cl: 96 (02/09/2011) PT: 12.4 (01/15/2011) INR: 0.96 (01/15/2011) P TT: 32.6 (01/15/2011) Orders: E KG ([id number]) Angie Shaffer MD Follow-up after test s: T he following medications were removed from the medication list: Hydrochlorothiazide 25 Mg Tabs (Hydrochlorothiazide) ..... One tab daily His updated medication list for this problem includes: Metoprolol Succinate 100 Mg Tb24 (Metoprolol succinate) ..... Take one and one half tablet by mouth daily Lisinopril Tabs (Lisinopril tabs) ..... 25mg daily BP today: 124/84 Prior BP: 150/100 (02/04/2012) H gb: 13.2 (01/15/2011) HCT: 38.6 (01/15/2011) RBC: 3.97 (01/15/2011) WBC: 5.5 (01/15/2011) B UN: 10 (02/09/2011) Creat: 0.79 (02/09/2011) Glucose: 90 (02/09/2011) N a+: 132 (02/09/2011) K+: 4.8 (02/09/2011) Cl: 96 (02/09/2011) Nuclear Stress Findings: 1. Normal myocardial perfusion imaging after vasodilator stress with Regadenoson. 2 . Normal left ventricular size with reduced systolic function with a calculated ejection fraction of 36%. 3 . LV dilatation with pharmocological stress. 4 . No obvious significant scintigraphic evidence of myocardial ischemia or scar. - CNE (02/10/2012) Angie Shaffer MD Follow-up after test s: T he following medications were removed from the medication list: Hydrochlorothiazide 25 Mg Tabs (Hydrochlorothiazide) ..... One tab daily His updated medication list for this problem includes: Metoprolol Succinate 100 Mg Tb24 (Metoprolol succinate) ..... Take one and one half tablet by mouth daily Lisinopril Tabs (Lisinopril tabs) ..... 25mg daily BP today: 124/84 Prior BP: 150/100 (02/04/2012) H gb: 13.2 (01/15/2011) HCT: 38.6 (01/15/2011) RBC: 3.97 (01/15/2011) WBC: 5.5 (01/15/2011) B UN: 10 (02/09/2011) Creat: 0.79 (02/09/2011) Glucose: 90 (02/09/2011) N a+: 132 (02/09/2011) K+: 4.8 (02/09/2011) Cl: 96 (02/09/2011) Nuclear Stress Findings: 1. Normal myocardial perfusion imaging after vasodilator stress with Regadenoson. 2 . Normal left ventricular size with reduced systolic function with a calculated ejection fraction of 36%. 3 . LV dilatation with pharmocological stress. 4 . No obvious significant scintigraphic evidence of myocardial ischemia or scar. - CNE (02/10/2012) Angie Shaffer MD Follow-up after tests Angie ruth MD Follow-up after test s: T he following medications were removed from the medication list: Hydrochlorothiazide 25 Mg Tabs (Hydrochlorothiazide) ..... One tab daily His updated medication list for this problem includes: Metoprolol Succinate 100 Mg Tb24 (Metoprolol succinate) ..... Take one and one half tablet by mouth daily Lisinopril Tabs (Lisinopril tabs) ..... 25mg daily BP today: 124/84 Prior BP: 150/100 (02/04/2012) N uclear Stress Findings: 1. Normal myocardial perfusion imaging after vasodilator stress with Regadenoson. 2 . Normal left ventricular size with reduced systolic function with a calculated ejection fraction of 36%. 3 . LV dilatation with pharmocological stress. 4 . No obvious significant scintigraphic evidence of myocardial ischemia or scar. - CNE (02/10/2012) H gb: 13.2 (01/15/2011) HCT: 38.6 (01/15/2011) RBC: 3.97 (01/15/2011) WBC: 5.5 (01/15/2011) B UN: 10 (02/09/2011) Creat: 0.79 (02/09/2011) Glucose: 90 (02/09/2011) N a+: 132 (02/09/2011) K+: 4.8 (02/09/2011) Cl: 96 (02/09/2011) SGOT (AST): 17 (01/15/2011) SGPT (ALT): 35 (01/15/2011) Angie Shaffer MD Follow-up after tests Angie ruth MD Follow-up after test s: H is updated medication list for this problem includes: Metoprolol Succinate 100 Mg Tb24 (Metoprolol succinate) ..... Take one and one half tablet by mouth daily Lisinopril Tabs (Lisinopril tabs) ..... 25mg daily BP today: 124/84 Prior BP: 150/100 (02/04/2012) N uclear Stress Findings: 1. Normal myocardial perfusion imaging after vasodilator stress with Regadenoson. 2 . Normal left ventricular size with reduced systolic function with a calculated ejection fraction of 36%. 3 . LV dilatation with pharmocological stress. 4 . No obvious significant scintigraphic evidence of myocardial ischemia or scar. - CNE (02/10/2012) H gb: 13.2 (01/15/2011) HCT: 38.6 (01/15/2011) RBC: 3.97 (01/15/2011) WBC: 5.5 (01/15/2011) B UN: 10 (02/09/2011) Creat: 0.79 (02/09/2011) Glucose: 90 (02/09/2011) N a+: 132 (02/09/2011) K+: 4.8 (02/09/2011) Cl: 96 (02/09/2011) PT: 12.4 (01/15/2011) INR: 0.96 (01/15/2011) P TT: 32.6 (01/15/2011) Angie Shaffer MD follow up: H is updated medication list for this problem includes: Metoprolol Succinate 100 Mg Tb24 (Metoprolol succinate) ..... Take one and one half tablet by mouth daily Lisinopril Tabs (Lisinopril tabs) ..... 25mg daily Hydrochlorothiazide 25 Mg Tabs (Hydrochlorothiazide) ..... One tab daily BP today: 150/100 P rior BP: 124/88 (02/02/2011) Labs Reviewed: C reat: 0.79 (02/09/2011) Angie Shaffer MD follow up: H is updated medication list for this problem includes: Metoprolol Succinate 100 Mg Tb24 (Metoprolol succinate) ..... Take one and one half tablet by mouth daily Lisinopril Tabs (Lisinopril tabs) ..... 25mg daily Hydrochlorothiazide 25 Mg Tabs (Hydrochlorothiazide) ..... One tab daily BP today: 150/100 Prior BP: 124/88 (02/02/2011) H gb: 13.2 (01/15/2011) HCT: 38.6 (01/15/2011) RBC: 3.97 (01/15/2011) WBC: 5.5 (01/15/2011) B UN: 10 (02/09/2011) Creat: 0.79 (02/09/2011) Glucose: 90 (02/09/2011) N a+: 132 (02/09/2011) K+: 4.8 (02/09/2011) Cl: 96 (02/09/2011) Nuclear Stress Findings: EF 57%. Excellent exercise tolerance. Negative maximal EKG stress test for ischemia. Normal myocardial perfusion without infarct or ischemia. (07/28/2005) Angie Shaffer MD follow up: B P today: 150/100 Prior BP: 124/88 (02/02/2011) Angie Shaffer MD follow up: H is updated medication list for this problem includes: Metoprolol Succinate 100 Mg Tb24 (Metoprolol succinate) ..... Take one and one half tablet by mouth daily Lisinopril Tabs (Lisinopril tabs) ..... 25mg daily Hydrochlorothiazide 25 Mg Tabs (Hydrochlorothiazide) ..... One tab daily BP today: 150/100 Prior BP: 124/88 (02/02/2011) N uclear Stress Findings: EF 57%. Excellent exercise tolerance. Negative maximal EKG stress test for ischemia. Normal myocardial perfusion without infarct or ischemia. (07/28/2005) H gb: 13.2 (01/15/2011) HCT: 38.6 (01/15/2011) RBC: 3.97 (01/15/2011) WBC: 5.5 (01/15/2011) B UN: 10 (02/09/2011) Creat: 0.79 (02/09/2011) Glucose: 90 (02/09/2011) N a+: 132 (02/09/2011) K+: 4.8 (02/09/2011) Cl: 96 (02/09/2011) SGOT (AST): 17 (01/15/2011) SGPT (ALT): 35 (01/15/2011) Angie Shaffer MD Yearly follow-up, lo w sodium: T he following medications were removed from the medication list: Hydrochlorothiazide 25 Mg Tabs (Hydrochlorothiazide) ..... Take 1 capsule daily His updated medication list for this problem includes: Metoprolol Succinate 100 Mg Tb24 (Metoprolol succinate) ..... Take one and one half tablet by mouth daily Lisinopril Tabs (Lisinopril tabs) ..... 25mg daily BP today: 124/88 Prior BP: 147/90 (02/16/2010) N uclear Stress Findings: EF 57%. Excellent exercise tolerance. Negative maximal EKG stress test for ischemia. Normal myocardial perfusion without infarct or ischemia. (07/28/2005) H gb: 13.2 (01/15/2011) HCT: 38.6 (01/15/2011) RBC: 3.97 (01/15/2011) WBC: 5.5 (01/15/2011) B UN: 10.0 (01/15/2011) Creat: 0.89 (01/15/2011) Glucose: 105 (01/15/2011) N a+: 127 (01/15/2011) K+: 4.1 (01/15/2011) Cl: 90.0 (01/15/2011) PT: 12.4 (01/15/2011) INR: 0.96 (01/15/2011) P TT: 32.6 (01/15/2011) Angie Shaffer MD Yearly follow-up, lo w sodium: T he following medications were removed from the medication list: Hydrochlorothiazide 25 Mg Tabs (Hydrochlorothiazide) ..... Take 1 capsule daily His updated medication list for this problem includes: Metoprolol Succinate 100 Mg Tb24 (Metoprolol succinate) ..... Take one and one half tablet by mouth daily Lisinopril Tabs (Lisinopril tabs) ..... 25mg daily BP today: 124/88 Prior BP: 147/90 (02/16/2010) H gb: 13.2 (01/15/2011) HCT: 38.6 (01/15/2011) RBC: 3.97 (01/15/2011) WBC: 5.5 (01/15/2011) B UN: 10.0 (01/15/2011) Creat: 0.89 (01/15/2011) Glucose: 105 (01/15/2011) N a+: 127 (01/15/2011) K+: 4.1 (01/15/2011) Cl: 90.0 (01/15/2011) Echocardiogram: Sigmoid septum without obstruction. Normal left ventricular systolic function. Normal left ventricular size. Normal left ventricular wall thickness. Mitral inflow Doppler demonstrates pseudonormal pattern consistent with diastolic dysfunction. Normal E/E` 11.0. Left ventricular ejection fraction is estimated at 65 %. There is mild enlargement of the left atrium. Mild mitral valve prolapse involving the posterior mitral valve leaflet. Mild mitral valve regurgitation. Mild to moderate aortic valve regurgitation. There is mild tricuspid regurgitation. IVC is normal in size with normal respiratory response. Estimated peak pulmonary artery systolic pressure is 39.0 mmHg. Normal aortic root size. Normal pericardium with no pericardial or pleural effusion. - GC (03/06/2010) N uclear Stress Findings: EF 57%. Excellent exercise tolerance. Negative maximal EKG stress test for ischemia. Normal myocardial perfusion without infarct or ischemia. (07/28/2005) Orders: B ASIC METABOLIC PANEL W/EGFR (88087) Angie Shaffer MD Yearly follow-up, low sodium Kevin Shaffer MD Yearly follow-up, lo w sodium: T he following medications were removed from the medication list: Hydrochlorothiazide 25 Mg Tabs (Hydrochlorothiazide) ..... Take 1 capsule daily His updated medication list for this problem includes: Metoprolol Succinate 100 Mg Tb24 (Metoprolol succinate) ..... Take one and one half tablet by mouth daily Lisinopril Tabs (Lisinopril tabs) ..... 25mg daily Orders: E KG ([id number]) B ASIC METABOLIC PANEL W/EGFR ([id number]) BP today: 124/88 P rior BP: 147/90 (02/16/2010) Labs Reviewed: C reat: 0.89 (01/15/2011) Angie Shaffer MD Yearly follow-up, lo w sodium: B P today: 124/88 Prior BP: 147/90 (02/16/2010) Angie Shaffer MD Yearly follow-up, lo w sodium: T he following medications were removed from the medication list: Hydrochlorothiazide 25 Mg Tabs (Hydrochlorothiazide) ..... Take 1 capsule daily His updated medication list for this problem includes: Metoprolol Succinate 100 Mg Tb24 (Metoprolol succinate) ..... Take one and one half tablet by mouth daily Lisinopril Tabs (Lisinopril tabs) ..... 25mg daily BP today: 124/88 Prior BP: 147/90 (02/16/2010) N uclear Stress Findings: EF 57%. Excellent exercise tolerance. Negative maximal EKG stress test for ischemia. Normal myocardial perfusion without infarct or ischemia. (07/28/2005) E chocardiogram: Sigmoid septum without obstruction. Normal left ventricular systolic function. Normal left ventricular size. Normal left ventricular wall thickness. Mitral inflow Doppler demonstrates pseudonormal pattern consistent with diastolic dysfunction. Normal E/E` 11.0. Left ventricular ejection fraction is estimated at 65 %. There is mild enlargement of the left atrium. Mild mitral valve prolapse involving the posterior mitral valve leaflet. Mild mitral valve regurgitation. Mild to moderate aortic valve regurgitation. There is mild tricuspid regurgitation. IVC is normal in size with normal respiratory response. Estimated peak pulmonary artery systolic pressure is 39.0 mmHg. Normal aortic root size. Normal pericardium with no pericardial or pleural effusion. - GC (03/06/2010) H gb: 13.2 (01/15/2011) HCT: 38.6 (01/15/2011) RBC: 3.97 (01/15/2011) WBC: 5.5 (01/15/2011) B UN: 10.0 (01/15/2011) Creat: 0.89 (01/15/2011) Glucose: 105 (01/15/2011) N a+: 127 (01/15/2011) K+: 4.1 (01/15/2011) Cl: 90.0 (01/15/2011) SGOT (AST): 17 (01/15/2011) SGPT (ALT): 35 (01/15/2011) Angie Shaffer MD routine : H is updated medication list for this problem includes: Metoprolol Succinate 100 Mg Tb24 (Metoprolol succinate) ..... Take one and one half tablet by mouth daily Hydrochlorothiazide 25 Mg Tabs (Hydrochlorothiazide) ..... Take 1 capsule daily Lisinopril Tabs (Lisinopril tabs) ..... 25mg daily BP today: 147/90 Prior BP: 158/90 (12/11/2007) N uclear Stress Findings: EF 57%. Excellent exercise tolerance. Negative maximal EKG stress test for ischemia. Normal myocardial perfusion without infarct or ischemia. (07/28/2005) Angie Shaffer MD routine : H is updated medication list for this problem includes: Metoprolol Succinate 100 Mg Tb24 (Metoprolol succinate) ..... Take one and one half tablet by mouth daily Hydrochlorothiazide 25 Mg Tabs (Hydrochlorothiazide) ..... Take 1 capsule daily Lisinopril Tabs (Lisinopril tabs) ..... 25mg daily BP today: 147/90 Prior BP: 158/90 (12/11/2007) E chocardiogram: Normal left ventricular systolic function. Normal left ventricular size. Mild concentric left ventricular hypertrophy. E to A ratio is consistent with restrictive physiology. Normal E/E` 8.0. Left ventricular ejection fraction is estimated at 65%. Trace to mild mitral valve regurgitation. The mitral valve leaflets appear m yxomatous. Mild to moderate aortic valve regurgitation. There is aortic valve sclerosis and thickening with mild calcification. There is trace physiologic tricuspid valve regurgitation. There is non-specific thickening of the tricuspid valve. IVC is normal in size. Unable to adequately assess the RVSP. - GC (02/26/2009) N uclear Stress Findings: EF 57%. Excellent exercise tolerance. Negative maximal EKG stress test for ischemia. Normal myocardial perfusion without infarct or ischemia. (07/28/2005) Angie Shaffer MD routine : H is updated medication list for this problem includes: Metoprolol Succinate 100 Mg Tb24 (Metoprolol succinate) ..... Take one and one half tablet by mouth daily Hydrochlorothiazide 25 Mg Tabs (Hydrochlorothiazide) ..... Take 1 capsule daily Lisinopril Tabs (Lisinopril tabs) ..... 25mg daily BP today: 147/90 Prior BP: 158/90 (12/11/2007) E chocardiogram: Normal left ventricular systolic function. Normal left ventricular size. Mild concentric left ventricular hypertrophy. E to A ratio is consistent with restrictive physiology. Normal E/E` 8.0. Left ventricular ejection fraction is estimated at 65%. Trace to mild mitral valve regurgitation. The mitral valve leaflets appear m yxomatous. Mild to moderate aortic valve regurgitation. There is aortic valve sclerosis and thickening with mild calcification. There is trace physiologic tricuspid valve regurgitation. There is non-specific thickening of the tricuspid valve. IVC is normal in size. Unable to adequately assess the RVSP. - (02/26/2009) N uclear Stress Findings: EF 57%. Excellent exercise tolerance. Negative maximal EKG stress test for ischemia. Normal myocardial perfusion without infarct or ischemia. (07/28/2005) Angie Shaffer MD routine : H is updated medication list for this problem includes: Metoprolol Succinate 100 Mg Tb24 (Metoprolol succinate) ..... Take one and one half tablet by mouth daily Hydrochlorothiazide 25 Mg Tabs (Hydrochlorothiazide) ..... Take 1 capsule daily Lisinopril Tabs (Lisinopril tabs) ..... 25mg daily BP today: 147/90 P rior BP: 158/90 (12/11/2007) Angie Shaffer MD routine Angie Shaffer MD routine : B P today: 147/90 Prior BP: 158/90 (12/11/2007) Angie Shaffer MD routine : H is updated medication list for this problem includes: Metoprolol Succinate 100 Mg Tb24 (Metoprolol succinate) ..... Take one and one half tablet by mouth daily Hydrochlorothiazide 25 Mg Tabs (Hydrochlorothiazide) ..... Take 1 capsule daily Lisinopril Tabs (Lisinopril tabs) ..... 25mg daily BP today: 147/90 Prior BP: 158/90 (12/11/2007) N uclear Stress Findings: EF 57%. Excellent exercise tolerance. Negative maximal EKG stress test for ischemia. Normal myocardial perfusion without infarct or ischemia. (07/28/2005) E chocardiogram: Normal left ventricular systolic function. Normal left ventricular size. Mild concentric left ventricular hypertrophy. E to A ratio is consistent with restrictive physiology. Normal E/E` 8.0. Left ventricular ejection fraction is estimated at 65%. Trace to mild mitral valve regurgitation. The mitral valve leaflets appear m yxomatous. Mild to moderate aortic valve regurgitation. There is aortic valve sclerosis and thickening with mild calcification. There is trace physiologic tricuspid valve regurgitation. There is non-specific thickening of the tricuspid valve. IVC is normal in size. Unable to adequately assess the RVSP. - (02/26/2009) Agnie Shaffer MD routine: H is updated medication list for this problem includes: Metoprolol Succinate 100 Mg Tb24 (Metoprolol succinate) ..... Take one and one half tablet by mouth daily Hydrochlorothiazide 25 Mg Tabs (Hydrochlorothiazide) ..... Take 1 capsule daily Lisinopril 20 Mg Tabs (Lisinopril) ..... One tab. daily BP today: / Prior BP: 158/90 (12/11/2007) N uclear Stress Findings: EF 57%. Excellent exercise tolerance. Negative maximal EKG stress test for ischemia. Normal myocardial perfusion without infarct or ischemia. (07/28/2005) Angie Shaffer MD routine: H is updated medication list for this problem includes: Metoprolol Succinate 100 Mg Tb24 (Metoprolol succinate) ..... Take one and one half tablet by mouth daily Hydrochlorothiazide 25 Mg Tabs (Hydrochlorothiazide) ..... Take 1 capsule daily Lisinopril 20 Mg Tabs (Lisinopril) ..... One tab. daily BP today: / Prior BP: 158/90 (12/11/2007) E chocardiogram: The left ventricular chamber size is normal. Normal left ventricular wall thickness. Normal left v entricular function. LV EF is estimated at 70%. History of Outflow tract obstruction; peak gradient at rest = 6 m mHg and with valsalva = 6mmHg. M yxomatous mitral valve with mild late-systolic mitral valve prolapse of the posterior leaflet.The aortic valve appears m ildly thickened (sclerotic). (2+) Moderate mitral regurgitation. ( 2+) Moderate aortic regurgitation. ( 1+) Mild tricuspid regurgitation. M inimal to (1+) mild pulmonic regurgitation. (12/11/2007) N uclear Stress Findings: EF 57%. Excellent exercise tolerance. Negative maximal EKG stress test for ischemia. Normal myocardial perfusion without infarct or ischemia. (07/28/2005) Orders: E KG (CPT-[id number]) Angie Shaffer MD routine: H is updated medication list for this problem includes: Metoprolol Succinate 100 Mg Tb24 (Metoprolol succinate) ..... Take one and one half tablet by mouth daily Hydrochlorothiazide 25 Mg Tabs (Hydrochlorothiazide) ..... Take 1 capsule daily Lisinopril 20 Mg Tabs (Lisinopril) ..... One tab. daily BP today: / Prior BP: 158/90 (12/11/2007) E chocardiogram: The left ventricular chamber size is normal. Normal left ventricular wall thickness. Normal left v entricular function. LV EF is estimated at 70%. History of Outflow tract obstruction; peak gradient at rest = 6 m mHg and with valsalva = 6mmHg. M yxomatous mitral valve with mild late-systolic mitral valve prolapse of the posterior leaflet.The aortic valve appears m ildly thickened (sclerotic). (2+) Moderate mitral regurgitation. ( 2+) Moderate aortic regurgitation. ( 1+) Mild tricuspid regurgitation. M inimal to (1+) mild pulmonic regurgitation. (12/11/2007) N uclear Stress Findings: EF 57%. Excellent exercise tolerance. Negative maximal EKG stress test for ischemia. Normal myocardial perfusion without infarct or ischemia. (07/28/2005) Angie Shaffer MD routine Angie Shaffer MD routine: B P today: / Prior BP: 158/90 (12/11/2007) Angie Shaffer MD routine: H is updated medication list for this problem includes: Metoprolol Succinate 100 Mg Tb24 (Metoprolol succinate) ..... Take one and one half tablet by mouth daily Hydrochlorothiazide 25 Mg Tabs (Hydrochlorothiazide) ..... Take 1 capsule daily Lisinopril 20 Mg Tabs (Lisinopril) ..... One tab. daily BP today: / Prior BP: 158/90 (12/11/2007) N uclear Stress Findings: EF 57%. Excellent exercise tolerance. Negative maximal EKG stress test for ischemia. Normal myocardial perfusion without infarct or ischemia. (07/28/2005) E chocardiogram: The left ventricular chamber size is normal. Normal left ventricular wall thickness. Normal left v entricular function. LV EF is estimated at 70%. History of Outflow tract obstruction; peak gradient at rest = 6 m mHg and with valsalva = 6mmHg. M yxomatous mitral valve with mild late-systolic mitral valve prolapse of the posterior leaflet.The aortic valve appears m ildly thickened (sclerotic). (2+) Moderate mitral regurgitation. ( 2+) Moderate aortic regurgitation. ( 1+) Mild tricuspid regurgitation. M inimal to (1+) mild pulmonic regurgitation. (12/11/2007) Angie Shaffer MD office visit Angie Shaffer MD office visit: H is updated medication list for this problem includes: Metoprolol Succinate 100 Mg Tb24 (Metoprolol succinate) ..... Take one and one half tablet by mouth daily Hydrochlorothiazide 25 Mg Tabs (Hydrochlorothiazide) ..... One tab daily Angie Shaffer MD office visit Angie Shaffer MD office visit: H is updated medication list for this problem includes: Metoprolol Succinate 100 Mg Tb24 (Metoprolol succinate) ..... Take one and one half tablet by mouth daily Hydrochlorothiazide 25 Mg Tabs (Hydrochlorothiazide) ..... One tab daily E cho: EF 55-60%. Dilated LV. Myxomatous MV with late systolic mitral valve prolapse. Sclerosed AV. Moderate MR. No LVOT gradient compared to previous studies. Moderate AI. Trace PI. MIld TR. Trace PH with a PA pressure of 32mmHg. (09/13/2006) N uclear Stress Findings: EF 57%. Excellent exercise tolerance. Negative maximal EKG stress test for ischemia. Normal myocardial perfusion without infarct or ischemia. (07/28/2005) Angie Shaffer MD office visit: H is updated medication list for this problem includes: Metoprolol Succinate 100 Mg Tb24 (Metoprolol succinate) ..... Take one and one half tablet by mouth daily Hydrochlorothiazide 25 Mg Tabs (Hydrochlorothiazide) ..... One tab daily N uclear Stress Findings: EF 57%. Excellent exercise tolerance. Negative maximal EKG stress test for ischemia. Normal myocardial perfusion without infarct or ischemia. (07/28/2005) E cho: EF 55-60%. Dilated LV. Myxomatous MV with late systolic mitral valve prolapse. Sclerosed AV. Moderate MR. No LVOT gradient compared to previous studies. Moderate AI. Trace PI. MIld TR. Trace PH with a PA pressure of 32mmHg. (09/13/2006) Angie Shaffer MD return in 2 wks to c heck echo and bp and bmp: O rders: [facility] [employer] Echo ([id number]) Angie Shaffer MD return in 2 wks to c heck echo and bp and bmp: H is updated medication list for this problem includes: Metoprolol Succinate 100 Mg Tb24 (Metoprolol succinate) ..... Take one tablet by mouth daily Hydrochlorothiazide 25 Mg Tabs (Hydrochlorothiazide) ..... One tab daily N uclear Stress Findings: EF 57%. Excellent exercise tolerance. Negative maximal EKG stress test for ischemia. Normal myocardial perfusion without infarct or ischemia. (07/28/2005) E cho: EF 55-60%. Dilated LV. Myxomatous MV with late systolic mitral valve prolapse. Sclerosed AV. Moderate MR. No LVOT gradient compared to previous studies. Moderate AI. Trace PI. MIld TR. Trace PH with a PA pressure of 32mmHg. (09/13/2006) Orders: C omplete Echo ([id number]) Angie Shaffer MD return in 2 wks to c heck echo and bp and bmp: H is updated medication list for this problem includes: Metoprolol Succinate 100 Mg Tb24 (Metoprolol succinate) ..... Take one tablet by mouth daily Hydrochlorothiazide 25 Mg Tabs (Hydrochlorothiazide) ..... One tab daily E cho: EF 55-60%. Dilated LV. Myxomatous MV with late systolic mitral valve prolapse. Sclerosed AV. Moderate MR. No LVOT gradient compared to previous studies. Moderate AI. Trace PI. MIld TR. Trace PH with a PA pressure of 32mmHg. (09/13/2006) N uclear Stress Findings: EF 57%. Excellent exercise tolerance. Negative maximal EKG stress test for ischemia. Normal myocardial perfusion without infarct or ischemia. (07/28/2005) Orders: C omplete Echo ([id number]) Angie Shaffer MD return in 2 wks to [facility] echo and bp and bmp: O rders: C omplete Echo ([id number]) Angie Shaffer MD Date Name Stress Regadenoson Vitamin D, 25-Hydrox y PROTHROMBIN TIME WIT H INR PROBNP, N TERMINAL LIPID PANEL IRON AND TOTAL IRON BINDING CAPACITY FERRITIN CBC (INCLUDES DIFF/P LT) COMPREHENSIVE METABO LIC PANEL, W/EGFR Complete Echo Complete Echo Complete Echo Complete Echo Sleep Study Home Complete Echo X-Ray, Chest - Routi ne Complete Echo Stress Regadenoson Complete Echo BASIC METABOLIC PANE L W/EGFR Complete Echo Complete Echo HISTORY OF PROCEDURES Procedure Date Procedure Name Provider Procedure Notes S tatus Complex e/m visit add on Angie Shaffer MD completed EKG Angie Shaffer MD completed Complex e/m visit add on Angie Shaffer MD completed Complex e/m visit add on Angie Shaffer MD completed EKG Angie Shaffer MD completed EKG Angie Shaffer MD completed EKG Angie Shaffer MD completed EKG Angie Shaffer MD completed EKG Angie Shaffer MD completed Regadenoson, 4 units Angie Shaffer MD completed Cardiolite, 2 units Angie Shaffer MD completed SPECT Images Angie Shaffer MD complet ed Stress EKG Daniel Dillard MD complete d EKG Angie Shaffer MD completed SNOMED-CT: 642887411 [id number] Current Medications Documented Angie Shaffer MD completed SNOMED-CT: 49643161 Physical Exam, Performed: Pulse Exam of Foot Angie Shaffer MD completed SNOMED-CT: 512583654 222531 Current Medications Documented Angie Shaffer MD completed EKG Angie Shaffer MD completed EKG Angie Shaffer MD completed EKG Angie Shaffer MD completed EKG Angie Shaffer MD completed
--- OUTSIDE RECORDS SUMMARY | 2024-10-09 12:31 | XMS_ITS | Continuity of Care Document ---
Author Organization [facility] Address [address] [place] [address] [place] [address] Phone Care Team Providers Care Pure Pak Machine Operator Name Role Phone Eh Cruz DO Unavailable Unavailable Advance Directives Directive Yes / No Effective Date File Name No Information Encounters Encounter Description Practice Location Reason(s) For Visit Diagnoses Date Provider Providers Copied on Encounter Located within [facility], [address], [place], [place], [id number], [place] tel:[phone] [facility] No Information Nancy Dahl. [address] [facility], [place], [address], [place]. tel: [phone] Family History Family Member Type Diagnosis Age [...]
--- OUTSIDE RECORDS SUMMARY | 2024-10-09 12:32 | XMS_ITS | Referral Summary ---
Author Organization [facility] Address [address] [place] [address] Care Team Providers Care Fringing Machine Operator Name Role Phone Ant Hickman MD Primary Care Provider Allergies Active Allergy Reactions Criticality Noted Date Comments Penicillins Rash Medium Pt unsure if still allergic - has had other PCN like meds with no issues - was told allergy as child Medications metoprolol (LOPRESSOR) 100 mg tabletIndicatio ns:hypertension Take 150 mg by mouth every morning Active lisinopril (PRINIVIL,ZESTR IL) 40 mg tabletIndicatio ns:hypertension Take 40 mg by mouth every morning Active amLODIPine (NORVASC) 10 mg tabletIndicatio ns:hypertension Take 10 mg by mouth every morning Active traZODone (DESYREL) 50 mg tabletIndicatio ns:insomnia associated with depression Take 50 mg by mouth nightly Active omeprazole (PriLOSEC) 20 mg capsuleIndicati ons:Treatment of Non-Bleeding Gastric Disorder Take 20 mg by mouth every morning Active apixaban (ELIQUIS) 5 mg tablet Take 5 mg by mouth every 12 hours 0 Active pregabalin (LYRICA) 50 mg capsuleIndicati ons:Neuropathic Pain Associated with Spinal Cord Injury Take 50 mg by mouth 2 (two) times a day as needed 0 Active fluticasone propionate (FLONASE) 50 mcg/actuation nasal sprayIndication s:Allergic Rhinitis Administer 1 spray into each nostril every morning 0 Active hydroCHLOROthia zide (HYDRODIURIL) 25 mg tabletIndicatio ns:Edema Take 25 mg by mouth as needed 1 Active montelukast (SINGULAIR) 10 mg tablet daily 9 Active UNABLE TO FINDIndications :leg cramps Med Name: reactive magneium 1 tablet in am Active UNABLE TO FIND Med Name: Beta Steroid for prostate 1 tablet in the am Active acetaminophen (TYLENOL) 500 mg tabletIndicatio ns:Pain Take 1,000 mg by mouth every 6 (six) hours as needed for pain Active citalopram (CeleXA) 20 mg tablet Take 1 tablet by mouth daily Active oxyCODONE (ROXICODONE) 5 mg immediate release tabletIndicatio ns:Pain Take 1 tablet (5 mg total) by mouth every 4 (four) hours as needed for pain 40 tablet 1 Active docusate sodium (COLACE) 100 mg capsuleIndicati ons:constipatio n Take 1 capsule (100 mg total) by mouth 2 (two) times a day 30 capsule 1 Active ALPRAZolam (XANAX) 1 mg tablet TAKE 1 TABLET BY MOUTH FOUR TIMES DAILY NEEDED FOR ANXIETY 1 Active clindamycin (CLEOCIN) 150 mg capsule [address] (VOLTAREN) 75 mg EC tablet Take 75 mg by mouth 2 (two) times a day 1 Active HYDROcodone-narciso taminophen (NORCO) 10-325 mg per tablet Take by mouth every 6 (six) hours as needed 1 Active metoprolol XL (TOPROL-XL) 100 mg 24 hr tablet Take 150 mg by mouth daily 1 Active terbinafine (LamiSIL) 250 mg tablet terbinafine HCl 250 mg tablet TAKE 1 TABLET BY MOUTH EVERY DAY DIRECTED Active senna-docusate (PERICOLACE) 8.6-50 mg Take 1 tablet by mouth daily Active Active Problems Problem Noted Date Diagnosed Date Anemia 05/05/2022 Degeneration of cervical intervertebral disc 02/2021 Gastroesophageal reflux disease 09/22/2020 Herniation of nucleus pulposus 09/22/2020 Osteoarthritis of knee 09/22/2020 Spinal stenosis of lumbar region 09/22/2020 Benign essential hypertension 09/22/2020 Disorder of bursae of shoulder region 09/22/2020 HTN (hypertension) 06/24/2020 Paroxysmal atrial fibrillation 06/24/2020 History of DVT of lower extremity 06/24/2020 Pulmonary HTN 06/24/2020 Risk factors for obstructive sleep apnea 021 Left shoulder pain 06/09/2020 Overview (06/09/2020): Added automatically from request for surgery [id number] Shoulder arthritis 06/09/2020 Overview (06/09/2020): Added automatically from request for surgery [id number] Tear of left rotator cuff 06/09/2020 Overview (06/09/2020): Added automatically from request for surgery [id number] Acute embolism and thrombosis of unspecified vei n 07/10/2019 Atrial fibrillation 06/14/2019 Preoperative cardiovascular examination 08/30/19 19 Wheezing 08/29/2018 Kyphosis deformity of spine 06/27/2018 Assessment & Plan (06/27/2018 12:41 PM DIRECTOR CRITICAL CARE): Mr. Ponce complains mainly of cervical pain in the left shoulder and neck. He has previous surgeries from C4-C7. He has a significant kyphosis at C4-5 and C3-4 with some anterior listhesis of C3 on C4. I had a long discussion with patient and his . We discussed that in general cervical radiculopathy is much easier to treat then cervical pain with surgery. We discussed that cervical pain has mixed results with surgery. The patient does have signs of C5 sensory radiculopathy. He has significant kyphosis and pseudoarthrosis at this level. We discussed that surgery would be anterior diskectomy and fusion at C3-4 and revision of his anterior fusion at C4-5 followed by a posterior fixation C3-C5. If he wishes to consider surgical intervention and we will get a CT myelogram and flexion-extension cervical spine films to define the amount of soft tissue compression and movement of the cervical spine. We will set up a follow-up appointment for 4 months. If he decides to pursue surgical options then we will get the studies earlier. Mitral valve insufficiency 02/28/2018 Chronic pain syndrome 11/22/2017 Benign prostatic hyperplasia with urinary obstru ction 10/15/2016 Back pain 02/02/2016 Aortic valve regurgitation 02/02/2016 Mixed hypercholesterolemia and hypertriglyceride lópez 12/11/2007 Anxiety 11/09/2007 Pulmonary hypertension 11/09/2007 Other hypertrophic cardiomyopathy 05/16/1959 Essential (primary) hypertension 05/16/1959 Immunizations Immunization Administration Dates Next Due Influenza, Quad, Adjuvantate d, Intramuscular 02/20/2020 Influenza, Quadrivalent, Spl it, Preservative Free, Intramuscular 05/14/2013 Influenza, Trivalent, High D ose, Split, Preservative Free, Intramuscular 02/27/2018,04/22/2017,02/23/2016 Influenza, Trivalent, IM (MDV) 02/22/2014 Influenza, Trivalent, Preser vative Free, Intramuscular 03/05/2015 Influenza, Unspecified 02/14/2020 Moderna SARS-CoV-2 Monovalen t Vaccination (12+ YRS) 04/22/2021 Pneumococcal Conjugate PCV 13 08/06/2014 Pneumococcal Polysaccharide PPV23 12/26/2019 Tdap 02/19/2017 Social History Tobacco Use Types Packs/Day Years Used Date Smoking Tobacco: Never Smokeless Tobacco: Never Alcohol Use Standard Drinks/Week Comments Yes 4 (1 standard drink = 0.6 oz pur e alcohol) Moderate AUDIT-C Answer Date Recorded Q1: How often do you have a drink containing alc ohol? 2-4 times a month 03/27/2022 Q2: How many drinks containi ng alcohol do you have on a typical day when you are drinking? 1 or 2 03/27/2022 Q3: How often do you have si x or more drinks on one occasion? 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 Not on file Not on file Last Filed Vital Signs Vital Sign Reading Time Taken Comments Blood Pressure 140/73 03/26/2022 10:07 AM DIRECTOR CRITICAL CARE Pulse 52 03/26/2022 10:07 AM DIRECTOR CRITICAL CARE Temperature 36.5 C (97.7 F) 03/26/2022 10:07 AM DIRECTOR CRITICAL CARE Respiratory Rate 16 03/26/2022 10:0 7 AM DIRECTOR CRITICAL CARE Oxygen Saturation 91% 03/26/2022 10: 07 AM DIRECTOR CRITICAL CARE Inhaled Oxygen Concentration - - Weight 70.7 kg (155 lb 13.8 oz) 022 10:07 AM DIRECTOR CRITICAL CARE Height 170.2 cm (5' 7) 03/26/2022 10:0 7 AM DIRECTOR CRITICAL CARE Body Mass Index 24.41 03/26/2022 10:07 AM DIRECTOR CRITICAL CARE Plan of Treatment Not on file Medical Devices Implanted Type Area Audio Production Engineer Device Identifier Shelf Expiration Date Model / Serial / Lot Neurostimulator Neurostimulator Left: Back [employer] 6191-1-010 Simplex P Radiopaque Full Dose Cement Bone Sterile - [id number] Implanted:Qty: 1 on 07/01/2020 [facility] 05/15/2021 6191-1-010 / / [id number] [employer] [id number] Global Ap 52mm [place] Glenoid Peg Fixation Premieron - [id number] Implanted:Qty: 1 on 07/01/2020 by Fred Pelaez MD at [facility] [employer] [id number] / / [id number] [employer] [id number] Global Unite 16mm 137mm Modular Shoulder Standard Stem Humeral - [id number] Implanted:Qty: 1 on 07/01/2020 by Fred Pelaez MD at [facility] [employer] [id number] / / [id number] [employer] [id number] Unite 16mm Shoulder 135d Body Humeral Porocoat Sterile - [id number] Implanted:Qty: 1 on 07/01/2020 by Fred Pelaez MD at [facility] [employer] [id number] / / [id number] [employer] [id number] Global Unite 56mm 18mm Shoulder Eccentric Head Humeral - [id number] Implanted:Qty: 1 on 07/01/2020 by Fred Pelaez MD at [facility] [id number] / / [id number] Insurance MEDICARE [facility] CHO[facility] HMO/PPO Address: [address] [address] [place] [address] COMMERCIAL GENERIC MEDICARE MEDICARE [facility] MEDICARE [facility] Advance Directives For more information, please contact: [phone] * Full Code (Latest Code Status on File) Date Activated Date Inactivated Comments 07/01/2020 1:56 PM 07/02/2020 3:13 PM Care Teams Fringing Machine Operator Relationship Specialty Start Date End Date Ant Hickman MD PCP - General 02/21/17
--- OUTSIDE RECORDS SUMMARY | 2024-10-09 12:32 | XMS_ITS | Clinical Summary ---
Author Organization [facility] C Address [address] [place] [address] Care Team Providers Care Nutrition Services Aide Name Role Phone Ant Hickman MD Primary [...] (06/09/2020): Added automatically from request for surgery [id number] Shoulder arthritis 06/09/2020 Overview (06/09/2020): Added automatically from request for surgery [id number] Tear of left rotator cuff 06/09/2020 Overview (06/09/2020): Added automatically from request for surgery [id number] Acute embolism and thrombosis of unspecified vei n 07/10/2019 Atrial fibrillation 06/14/2019 Preoperative cardiovascular examination 08/30/19 19 Wheezing 08/29/2018 Kyphosis deformity of spine 06/27/2018 Assessment & Plan (06/27/2018 12:41 PM SYSTEMS PROGRAMMER): Mr. Ponce complains mainly of cervical pain [...] 08/06/2014 Pneumococcal Polysaccharide PPV23 12/26/2019 Tdap 02/19/2017 Surgical History Surgery Date Site/Laterality Comments CERVICAL FUSION Early Dr. Ivory SPINAL CORD STIMULATOR IMPLANT 05/16/2010 - 05/15/2011 [employer] - Functioning and uses daily CERVICAL FUSION Early Dr. Trujillo LUMBAR SPINE SURGERY [id number] x4 BACK SURGERY SHOULDER SURGERY Medical History Medical History Date Comments BPH (benign prostatic hyperplasia) HTN (hypertension) GERD (gastroesophageal reflux disease) Anxiety Sinus problem Arthritis Leaky heart valve Anemia Family History Medical History Relation Name Comments Meniere's disease Brother ASHD Father Atrial fibrillation Father Hyperlipidemia Father Hypertension Father Dementia Mother Hyperlipidemia Mother Anesthesia problems Neg Hx Relation Name Status Comments Brother Alive Father Mother Alive Social History Tobacco Use Types Packs/Day Years [...] on file Legal Sex Male 2:00 AM SYSTEMS PROGRAMMER Gender Identity Not on file Sexual Orientation Not on file Occupation Industry Job Start Date Job End Date Retired Not on file 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 on file Not on file Obstetrics History Last Filed Vital Signs Vital Sign Reading Time Taken Comments Blood Pressure 140/73 03/26/2022 10:07 AM SYSTEMS PROGRAMMER Pulse 52 03/26/2022 10:07 AM SYSTEMS PROGRAMMER Temperature 36.5 C (97.7 F) 03/26/2022 10:07 AM SYSTEMS PROGRAMMER Respiratory Rate 16 03/26/2022 10:0 7 AM SYSTEMS PROGRAMMER Oxygen Saturation 91% 03/26/2022 10: 07 AM SYSTEMS PROGRAMMER Inhaled Oxygen Concentration - - Weight 70.7 kg (155 lb 13.8 oz) 022 10:07 AM SYSTEMS PROGRAMMER Height 170.2 cm (5' 7) 03/26/2022 10:0 7 AM SYSTEMS PROGRAMMER Body Mass Index 24.41 03/26/2022 10:07 AM SYSTEMS PROGRAMMER Plan of Treatment Health Maintenance Due Date Last Done Comments Hepatitis C Screening 1950 Hepatitis B Screening 02/24/1966 Zoster Vaccine (1 of 2) 02/24/1998 Well Visit 65+ 02/24/2013 Depression Screening 06/09/2021 06/09/2020, 06/09/2020, 06/27/2018, Additional history exists Fall Risk Assessment 07/02/2021 07/02/2020 Covid-19 Vaccine (2023-2 5 season) 2024 04/22/2021 Influenza Vaccine (Season Ended) 2025 04/06/2022, 02/20/2020, 02/14/2020, Additional history exists DTaP/Tdap/Td Vaccine (2 - Td or Tdap) 02/19/2027 02/19/2017 Pneumococcal vaccine 65+ Completed 12/26/2019, 07/15 Medical Devices Implanted Type Area Integration Specialist Device Identifier Shelf Expiration Date Model / Serial / Lot Neurostimulator Neurostimulator Left: Back [employer] 6191-1-010 Simplex P Radiopaque Full Dose Cement Bone Sterile - [id number] Implanted:Qty: 1 on 07/01/2020 by Fred Pelaez MD at [facility] [employer] 05/15/2021 6191-1-010 / / [id number] [employer] [id number] Global Ap 52mm [place] Glen[place] Peg Fixation Premieron - [id number] Implanted:Qty: 1 on 07/01/2020 by Fred Pelaez MD at [facility] [employer] [id number] / / [id number] [employer] [id number] Global Unite 16mm 137mm Modular Shoulder Standard Stem Humeral - [id number] Implanted:Qty: 1 on 07/01/2020 by Fred Pelaez MD at [facility] [employer] [id number] / / [id number] [employer] [id number] Unite 16mm Shoulder 135d Body Humeral [place]oat Sterile - [id number] Implanted:Qty: 1 on 07/01/2020 by Fred Pelaez MD at [facility] [employer] [id number] / / [id number] [employer] [id number] Global Unite 56mm 18mm Shoulder Eccentric Head Humeral - [id number] Implanted:Qty: 1 on 07/01/2020 by Fred Pelaez MD at [facility] [employer] [id number] / / [id number] Insurance MEDICARE [facility] CHOICE PLUS COMMERCIAL GENERIC MEDICARE MEDICARE [facility] MEDICARE [facility] Advance Directives For more information, please contact: [phone] * Full Code (Latest Code Status on File) Date Activated Date Inactivated Comments 07/01/2020 1:56 PM 07/02/2020 3:13 PM Care Teams Nutrition Services Aide Relationship Specialty Start Date End Date Ant Hickman MD PCP - General 02/21/17
[2024-10-09 12:45] VITALS: BP 117/59; PULSE 60; RESP 18; TEMP 36.5; O2SAT 95
--- NOTE | 2024-10-09 13:59 | ED_ITS ---
HPI - Animal Bite General Chief Complaint: Animal Bite Stated Complaint: Poss infected dog bite-right ankle-1 week ago Time Seen by Provider: 10/09/24 13:44 History of Present Illness HPI narrative: 74-year-old male presents to the emergency department for evaluation for worsening infection on his right lower extremity. Patient reports on September 23 he was bit by his own dog on his right ankle. Patient has had 2 weeks of antibiotics which started on September 24. Patient states that he believes to day there may be some slight improvement in the swelling but patient does still have significant erythema of the right lower extremity with edema. Patient denies any fevers. Patient did get a tetanus update on September 24 Related Data Home Medications ?Medication ?Instructions ?Recorded ?Confirmed ?Last Taken ?Type alprazolam 1 mg tablet 1 mg PO QID PRN Anxiety 01/29/21 10/09/24 10/09/24 History amlodipine 10 mg tablet 5 mg PO QAM 01/29/21 10/09/24 10/09/24 History apixaban 5 mg tablet (Eliquis) 5 mg PO BID 01/29/21 10/09/24 10/09/24 History fluticasone propionate 50 50 mcg intranasal DAILY PRN 01/29/21 10/09/24 10/08/24 History mcg/actuation nasal Congestion spray,suspension hydrocodone 10 mg-acetaminophen 1 tablet PO QID PRN Pain 01/29/21 10/09/24 10/09/24 History 325 mg tablet metoprolol succinate 100 mg 100 mg PO QAM 01/29/21 10/09/24 09/09/22 08:00 History tablet,extended release 24 hr pregabalin 50 mg capsule 50 mg PO DAILY PRN nerve pain 01/29/21 10/09/24 10/09/24 History trazodone 50 mg tablet 50 mg PO HS 01/29/21 10/09/24 10/09/24 History diclofenac sodium 75 mg 75 mg PO BID PRN Pain 09/06/22 10/09/24 10/09/24 History tablet,delayed release hydrochlorothiazide 25 mg tablet 1 mg PO QAM PRN Edema 09/06/22 10/09/24 10/09/24 History omeprazole 20 mg capsule,delayed 20 mg PO DAILY 09/06/22 10/09/24 10/09/24 History release sacubitril 24 mg-valsartan 26 mg 1 tablet PO BID 09/06/22 10/09/24 10/09/24 History tablet (Entresto) Allergies Allergy/AdvReac Type Severity Reaction Status Date / Time No Known Allergies Allergy Verified 10/09/24 12:29 Review of Systems 2 Review of Systems: All systems reviewed & are unremarkable except as noted in HPI and below PMFSH Past Medical History Medical History Chronic narcotic use TRI (obstructive sleep apnea) Atrial fibrillation Hypertension Cellulitis of finger of left hand Infected dog bite of hand Social History Social History Smoking status: Never smoker Alcohol intake: never Drinks per week: 0 Alcohol use details: 1 drink a month Substance use: current Substance use type: marijuana Last use: 10/08/24 Do You Feel Safe in your Home?: Yes Lack of Transportation: No Lack of Food: Never True Current Housing: I Have Housing Concerned About Future Housing: No Difficulty Paying Gas/Electric Bills: No Difficulty Paying for Meds: No Currently Unemployed: No Education: High School Diploma/GED Difficulty w/ Childcare or Family Care: No Living arrangements: with family Additional living arrangements comments: Gender identity (if verbalized by the patient): Male Sexual Orientation (if Verbalized by the Patient): Straight or Heterosexual Spiritual care concerns: No Exam 2 Narrative: APPEARANCE: Well appearing, no pain, no distress, well-nourished. HEAD: normocephalic, atraumatic. EYES: PERRLA/EOMI, conjunctivae clear. NOSE: Normal no drainage EARS:TMS clear with good light reflex. THROAT: Pharynx clear, no exudate. NECK: Supple. No adenopathy, no masses. RESPIRATORY: Airway patent, respirations nonlabored. Clear to auscultation bilaterally, no rales, rhonchi, wheezing. CARDIOVASCULAR: Regular rate and rhythm without murmurs rubs or gallops. ABDOMINAL: Soft, nontender, nondistended, normal bowel sounds MUSCULOSKELETAL: Moves all extremities. Some pitting edema of the right lower extremity NEURO: Alert. Cranial nerves II through XII intact. Good gait. Good coordination SKIN: Right lower extremity erythema with an overlying blood blister with no fluctuance or purulence Course Vital Signs Vital signs: Vital Signs Temperature 97.7 F 10/09/24 12:45 Pulse Rate 60 10/09/24 12:45 Respiratory Rate 18 10/09/24 12:45 Blood Pressure 117/59 L 10/09/24 12:45 Pulse Oximetry 95 10/09/24 12:45 Oxygen Delivery Room Air 10/09/24 12:45 Temperature 97.7 F 10/09/24 16:22 Pulse Rate 53 L 10/09/24 16:22 Respiratory Rate 16 10/09/24 16:22 Blood Pressure 147/79 H 10/09/24 16:22 Pulse Oximetry 99 10/09/24 16:22 Oxygen Delivery Room Air 10/09/24 16:30 MDM - Animal Bite MDM Narrative Medical decision making narrative: 74-year-old male presents to the emergency department for evaluation for a lower extremity dog bite. Patient has been on antibiotics since September 24 but reports persistent erythema and leg swelling. Patient does have an extensive lower extremity cellulitis. Patient does report prior failure to respond to oral antibiotics from a dog bite and ultimately did require a skin graft to the hand. Blood cultures were ordered along with lactic acid and CRP. Patient was started on Unasyn in the emergency department. Case was discussed with hospitalist patient was accepted for admission. Differential Diagnosis Differential diagnosis: Likely bite by animal and dog bite Lab Data Attestation: I reviewed the patient's lab results. 10/09/24 15:02 10/09/24 15:02 Discharge Plan Discharge Clinical Impression: Dog bite, Bite by animal, Cellulitis of lower leg Patient Disposition: Still a Patient Condition: Serious
--- OUTSIDE RECORDS SUMMARY | 2024-10-09 14:06 | XMS_ITS | Clinical Summary ---
Author Organization [facility] Address [address] [place] [address] Care Team Providers Care Sterile Technician Name Role Phone Ant Hickman MD Primary Care Provider [phone] Source Comments [facility],non-owned Affiliates and Associated Physician Practices is amultiple site organization consisting of ambulatory clinics and hospital sitesin [place], [place], [place] and [place]. This disclosure is being madepursuant to the Care Everywhere program and may not contain all information available regarding this patient. 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
--- OUTSIDE RECORDS SUMMARY | 2024-10-09 14:07 | XMS_ITS | CONTINUITY OF CARE DOCUMENT ---
Author Name sadnrine, sandrine Address Unknown Organization [facility] Address [address] [address] [employer] [facility] [address] [place] [address] Phone [phone] Care Team Providers Care Technician Assistant Name Role Phone Edmund CASTRO, Angie Unavailable HANSA CASTRO, PENELOPE Unavailable [phone] HANSA CASTRO, PENELOPE Unavailable PROBLEMS Condition Status Date Provider Notes CAD- 60-70% proximal RCA lesion active Angie Shaffer MD Hypercholesterolemia, mixed active Marisol Gr uenenfelder ANXIETY active Catalina Ramey Cardiology examination active Angie Shaffer MD Shortness of breath active David Russo DVT 06/2019 s/p appendectomy active Angie pace MD Paroxysmal atrial fibrillati on on Eliquis active Angie Shaffer MD Wheezing active Angie Shaffer MD Preoperative cardiovascular examination completed - Angie Shaffer MD Mitral regurgitation, modera te to severe active David Russo Aortic insufficiency, moderate active David Russo BACK PAIN Dx HAs a stimulator active Angie Shaffer MD CHEST PAIN-NL STRESS TEST 08/2018 active Angie Shaffer MD HYPONATREMIA THIAZIDE DIURET IC STOPPED RPT BMP completed - Angie Shaffer MD HOCM, hx of active David Ahmedzai HTN--echo ef nl, pasp 50, 04/2024 active David Ahmedzai Pulmonary hypertension, moderate active David Ahmedzai AORTIC REGURGITATION Mild completed 11/08 - Angie Shaffer MD MITRAL REGURGITATION Mild completed 11/08 - Angie Shaffer MD LVH completed - Angie Shaffer MD ENCOUNTERS Date Type Provider Location Encounter Diag nosis - In-person encounter Office Visit Angie Shaffer MD [facility] Cardiology examination - In-person encounter Office Visit Angie Shaffer MD [facility] HTN--echo ef nl, pasp 50, 04/2024Shortness of breath - In-person encounter Office Visit Angie Shaffer MD [facility] Pulmonary hypertension, moderateHTN--echo ef nl, pasp 50, 04/2024HOCM, hx ofAortic insufficiency, moderateMitral regurgitation, moderate to severe - In-person encounter Office Visit Angie Shaffer MD [facility] - In-person encounter Office Visit Angie Shaffer MD [facility] - In-person encounter Office Visit Angie Shaffer MD [facility] Pulmonary hypertension, moderateAortic insufficiency, moderateMitral regurgitation, moderate to severeParoxysmal atrial fibrillation on Eliquis - In-person encounter Office Visit Angie Shaffer MD [facility] Aortic insufficiency, moderate - In-person encounter Office Visit Angie Shaffer MD [facility] - In-person encounter Office Visit Angie Shaffer MD [facility] - In-person encounter Office Visit Angie Shaffer MD [facility] Pulmonary hypertension, moderateHOCM, hx ofCHEST PAIN-NL STRESS TEST 08/2018Aortic insufficiency, moderateMitral regurgitation, moderate to severePreoperative cardiovascular examinationParoxysmal atrial fibrillation on Eliquis - In-person encounter Office Visit Angie Shaffer MD [facility] - In-person encounter Office Visit Angie Shaffer MD [facility] - In-person encounter Office Visit Angie Shaffer MD [facility] Paroxysmal atrial fibrillation on EliquisDVT 06/2019 s/p appendectomy - In-person encounter Office Visit Angie Shaffer MD [facility] - In-person encounter Office Visit Angie Shaffer MD [facility] Wheezing - In-person encounter Office Visit Angie Shaffer MD [facility] Mitral regurgitation, moderate to severe - In-person encounter Office Visit Angie Shaffer MD [facility] - In-person encounter Office Visit Angie Shaffer MD [facility] MITRAL REGURGITATION MildAORTIC REGURGITATION MildBACK PAIN Dx HAs a stimulatorAortic insufficiency, moderate - In-person encounter Office Visit Angie Shaffer MD [facility] - In-person encounter Office Visit Angie Shaffer MD [facility] LVHHTN--echo ef nl, pasp 50, 04/2024HOCM, hx of - In-person encounter Office Visit Angie Shaffer MD [facility] - In-person encounter Office Visit Angie Shaffer MD [facility] - In-person encounter Office Visit Angie Shaffer MD [facility] HYPONATREMIA THIAZIDE DIURETIC STOPPED RPT BMPCHEST PAIN-NL STRESS TEST 08/2018 - In-person encounter Office Visit Angie Shaffer MD [facility] Office CHEST PAIN-NL STRESS TEST 08/2018 - In-person encounter Office Visit Angie Shaffer MD [facility] - In-person encounter Office Visit Angie Shaffer MD [facility] - In-person encounter Office Visit Angie Shaffer MD [facility] HTN--echo ef nl, pasp 50, 04/2024 - In-person encounter Office Visit Angie Shaffer MD [facility] - In-person encounter Office Visit Angie Shaffer MD [facility] VITAL SIGNS Date Observation Value Provider Body Mass Index (Ratio) 22.14 kg/m2 Javi Shaffer MD oxygen saturation, oximetry 97 % [facility] pulse rate 41 /min [facility] blood pressure, diastolic 70 mm[Hg[facility], systolic 129 mm[Hg] [facility] rate E&M 12 /min [facility] weight E&M 153 [lb_av] [facility] height E&M 69.7 [in_i] [facility] blood pressure, cuff size regular [facility] Body Mass Index (Ratio) 22.43 kg/m2 Javi Shaffer MD blood pressure, diastolic 74 mm[Hg] [facility], systolic 111 mm[Hg] edwin [facility] oxygen saturation, oximetry 85 % [facility] pulse rate 86 /min [facility] respiratory rate E&M 14 /min [facility] weight E&M 155 [lb_av] [facility] height E&M 69.7 [in_i] [facility] blood pressure, cuff size regular [facility] Body Mass Index (Ratio) 22.00 kg/m2 [...] blood pressure, diastolic 84 mm[Hg] Ca therine Ramona blood pressure, systolic 145 mm[Hg] Cat herine Ramona oxygen saturation, oximetry 92 % Skyla Ramona respiratory rate E&M 16 /min Catheri ne Navjot pulse rate 51 /min Skyla Ramona weight E&M 157 [lb_av] Skyla Ramona blood pressure, cuff size regular Ca therine Ramona height E&M 69.7 [in_i] Skyla Navjot Body [...] Ricks blood pressure, systolic 113 mm[Hg] [facility] respiratory rate E&M 16 /min Tonsha Ricks [...] blood pressure, cuff size regular Kr isty Warba blood pressure, diastolic 70 mm[Hg] Cholo Doyle blood pressure, systolic 138 mm[Hg] Tejal Doyle pulse rate 50 /min Ana Doyle oxygen saturation, oximetry 98 % Ana Doyle respiratory rate E&M 18 /min Ana weight E&M 161 [lb_av] Ana height E&M 69.7 [in_i] Ana Body Mass Index (Ratio) 23.15 kg/m2 Javi Shaffer MD blood pressure, diastolic 80 mm[Hg] Eliseo [facility] blood pressure, systolic 130 mm[Hg] Tc toledo Tangent oxygen saturation, oximetry 96 % [facility] respiratory rate E&M 16 /min [facility] pulse rate 55 /min [facility] weight E&M 160 [lb_av] [facility] height E&M 69.7 [in_i] [facility] Body Mass Index (Ratio) 22.86 kg/m2 Javi Shaffer MD blood pressure, diastolic 82 mm[Hg] Dennis Bolanos blood pressure, systolic 138 mm[Hg] Tanvi Bolanos oxygen saturation, oximetry 97 % Alfonzo Bolanos respiratory rate E&M 18 /min Omaira Bolanos pulse rate 48 /min Alfonzo Chevy rbenda weight E&M 158 [lb_av] Alfonzo Chevy prashanth [...] 124 mm[Hg] Gregory sevilla [place] pulse rate 51 /min Enrrique [place] [...] cm Dennis QureshiGlen pulse rate 16 /min Inesas FaviolaGlen oxygen saturation, oximetry 99 % Inessa QureshiGlen respiratory rate E&M 16 /min Inessa FaviolaGlen weight E&M 178.25 [lb_av] Inessa FaviolaGlen height E&M 71 [in_i] [facility] blood pressure, diastolic 88 mm[Hg] Zahira barrios [place] blood pressure, systolic 124 mm[Hg] Gregory sevilla [place] pulse rate 52 /min Enrrique [place] oxygen saturation, oximetry 96 % Enrrique [facility] respiratory rate E&M 16 /min Enrrique [place] weight E&M 162 [lb_av] Enrrique [facility] [place] blood pressure, diastolic 90 mm[Hg] Ellis Henley [...] Interpretation Location triglyceride, serum, fasting 42 mg/[facility] HDL cholesterol, serum 63 mg/dL [facility] LDL cholesterol, serum 102 mg/dL [facility] cholesterol, serum 177 mg/dL [facility] calcium, serum 8.5 mg/dL [facility] (8.6-10.2) [...] [facility] (8-27) blood glucose, random 90 mg/dL [facility] ([facility] PTT patient 32.6 s glenn Tanvir prothrombin time (patient) 12.4 s [facility] international normalized ratio (INR) 0.96 [facility] calcium, serum 8.9 mg/dL [facility] creatinine, serum 0.89 mg/dL [facility] albumin/globulin ratio, serum 1.3 [facility] protein, total, serum 7.0 g/dL [facility] albumin, serum 4.0 g/dL [facility] bilirubin, serum, total 0.7 mg/dL [facility] alkaline phosphatase, serum 75 1/L [facility] alanine aminotransferase (SGPT), serum 35 1/L [facility] aspartate aminotransferase (SGOT), serum 17 1/L [facility] blood glucose, fasting 105 mg/dL [facility] urea nitrogen, blood 10.0 mg/dL [facility] carbon dioxide, serum, total 30.4 mmol/L [facility] chloride, serum 90.0 mmol/L [facility] potassium, serum 4.1 mmol/L [facility] sodium, serum 127 mmol/L [facility] monocytes as percent of blood leukocytes 11.3 % [facility] lymphocytes as percent of blood leukocytes 23.8 % [facility] platelet count 337 10*3/uL [facility] red blood cell distribution width 11.5 % [facility] mean corpuscular hemoglobin concentration, RBC 34.2 g/dL [facility] Tanvir mean corpuscular hemoglobin, RBC 33.2 pg [...] BY MOUTH DAILY 07/09 - 06/05 Patricia Stewartmdaditya BAYP amlodipine 10 mg tablet completed TAKE [...] each nostril TWICE DAILY 02/03 - 01/10 Inessa Magana GABAPENTIN 300 MG ORAL CAPSULE completed ONE TAB. DAILY - Darinel Henley RN LISINOPRIL TABS completed 40 mg at night - 10/09 Alma Rosa Bradley RN diclofenac potassium 50 mg tablet active 75 mg once a day Darinel Henley RN TRAZODONE HCL 50 MG TABS completed once a day - 05/30 Patricia Stewartmiaditya NURSE TECHNICIAN HYDROCODONE-ACETAMINO PHEN 7.5-750 MG ORAL TABLET completed [...] use, illicit, d rug of choice marijuana [facility] drug use yes [facility] alcohol use, average drinks per day social [facility] alcohol use yes [facility] passive cigarette sm silva exposure no [facility] smoking status Never smoker [facility] drug use, illicit, d rug of choice marijuana [facility] drug use yes [facility] alcohol use, average drinks per day social [facility] alcohol use yes [facility] passive cigarette sm silva exposure no [facility] smoking status Never smoker [facility] drug use, illicit, d rug of choice marijuana [facility] drug use yes [facility] alcohol use, average drinks per day social [facility] alcohol use yes [facility] passive cigarette sm silva exposure no [facility] smoking status Never smoker David Russo drug [...] d rug of choice marijuana Patricia Ventimiglia [facility] drug use yes Patricia wright [facility] alcohol use, average drinks per day social Patricia Landers [facility] alcohol use yes Patricia wright [facility] physical exercise, frequency, days per week yes [...] passive cigarette sm silva exposure no Skyla Ramona smoking status Never smoker Skyla Latosha s [...] History: P atsolomon has never smoked. Adrian Areavlo social history revrachna wed E&M reviewed - no changes required Adrian Arevalo physical exercise, frequency, days per week yes Mnaa Muir caffeine use, averag e drinks per [...] physical exercise, frequency, days per week yes [facility] caffeine use, averag e drinks per day yes [facility] passive cigarette sm silva exposure no [facility] smoking status Never smoker [facility] social history E&M Marital Statu s: E thnicity: CaucasianMarital Status: L cristal with family/friends E thnicity: Smoking History: P atient has never smoked. Angie Shaffer MD physical exercise, frequency, days per week yes Angie Shaffer MD caffeine use, averag e drinks per day yes Angie Shaffer MD passive cigarette sm silva exposure no Angie Sahffer MD smoking status Never smoker Angie Shaffer [...] physical exercise, frequency, days per week yes [facility] alcohol use, average drinks per day [facility] caffeine use, averag e drinks per day [...] Juli Galaviz smoking status Never smoker Juli Swenosn mariah social history revie wed E&M reviewed [...] Statu s: E thnicity: CaucasianMarital Status: L rcistal with family/friends E thnicity: Angie Shaffer MD [...] drinks per day [facility] smoking status Non-smoker [facility] social history E&M Marital Statu s: E thnicity: Angie Shaffer MD social history revie wed E&M reviewed Angie Shaffer MD physical exercise, frequency, days per week yes [facility] caffeine use, averag e drinks per day yes [facility] use, average drinks per day 1-3 drinks per day [facility] smoking status Non-smoker [facility] MENTAL STATUS Date Observation Value Provider [...] Payer name Policy type / Coverage type [place] red republican ID [employer] [id number] [place] MED[place] Medicare [id number] ADVANCE DIRECTIVES Name Date DISCUSSED - NO DECISION MADE TREATMENT PLAN Date Name Performer [id number],S, Angie Shaffer MD [id number],B, Angie Shaffer MD [id number],S, Angie Shaffer MD [id number],S, Angie Shaffer MD [id number],S, Angie Shaffer MD [id number],B, Angie Shaffer MD [id number],B, Angie Shaffer MD [id number],B, Angie Shaffer MD [id number],B, Angie Shaffer MD [id number],B, Angie Shaffer MD [id number],B, Angie Shaffer MD [id number],S, David Braswell i [id number],S, David Sagemedza i [id number],S, David Ahmedza i [id number],S, David Sagemedza i [id number],S, David Ahmedza i [id number],S, David Ahmedza i [id number],C, T he following medications were removed from [...] ..... Take 1 tablet by mouth daily [facility] [id number],C,LDL 102 on re cent labs [facility] [id number],C, T he following medications were removed from [...] ..... Take 1 tablet by mouth daily [facility] [id number],C,M oderate on F/U echo today. Meds adjusted. will return in one month [facility] [id number],B,r elisabeth in NSR he is bradycardic on [...] 1 tablet by mouth daily Patricia Bloodglia [facility] [id number],C,remains on xa relto for AC Patricia Ventimiglia [facility] [id number],S, David Ahmedza i [id number],S, David Ahmedza i [id number],S, David Ahmedza i [id number],S, David Ahmedza i [id number],S, David Ahmedza i [id number],B, David medza i [id number],W, Angie Shaffer MD [id number],S, Angie Shaffer MD [id number],B,Tawanda Shaffer MD [id number],S, Angie Shaffer MD [id number],S, Angie Shaffer MD [id number],S, H is updated medication list for this problem includes: Lisinopril 40 Mg Tablet (Lisinopril) ..... 1 tablet once a day Amlodipine 10 Mg Tablet (Amlodipine) ..... 1 tablet once a day Metoprolol Succinate 100 Mg Tablet Extended Release 24 Hr (Metoprolol succinate) ..... Take 1 and 1/2 tablets by mouth daily Angie Shaffer MD [id number],S,Aguilaies CP Jeff q Allam [id number],S, Shafiq All am [id number],S, Shaq All am Cardiology: O rders: C OMPREHENSIVE METABOLIC PANEL, W/EGFR (92491) C BC (INCLUDES DIFF/PLT) (6399) F ERRITIN (457) I ROSANGELA AND TOTAL IRON BINDING CAPACITY (7573) L IPID PANEL (7600) PROBNP, N TERMINAL (80303) P ROTHROMBIN TIME WITH INR (8847) V itamin D, 25-Hydroxy (257780) Angie Shaffer MD Cardiology: T he following [...] (01/04/2022) Orders: C OMPREHENSIVE METABOLIC PANEL, W/EGFR (53918) C BC (INCLUDES DIFF/PLT) (6399) F ERRITIN (457) I ROSANGELA AND TOTAL IRON BINDING CAPACITY (7573) L IPID PANEL (7600) P ROBNP, N TERMINAL (77741) P ROTHROMBIN TIME WITH INR (8847) V itamin D, 25-Hydroxy (325333) Angie Shaffer MD Cardiology: O rders: C OMPREHENSIVE METABOLIC PANEL, W/EGFR (99287) C BC (INCLUDES DIFF/PLT) (6399) F ERRITIN (457) I ROSANGELA AND TOTAL IRON BINDING CAPACITY (7573) L IPID PANEL (7600) PROBNP, N TERMINAL (96675) P ROTHROMBIN TIME WITH INR (8847) V itamin D, 25-Hydroxy (649843) Angie Shaffer MD Cardiology: O rders: C OMPREHENSIVE METABOLIC PANEL, W/EGFR (87165) C BC (INCLUDES DIFF/PLT) (6399) F ERRITIN (457) I ROSANGELA AND TOTAL IRON BINDING CAPACITY (7573) L IPID PANEL (7600) PROBNP, N TERMINAL (14791) P ROTHROMBIN TIME WITH INR (8847) V itamin D, 25-Hydroxy (760130) Angie Shaffer MD Cardiology:This visi t has [...] day Orders: C OMPREHENSIVE METABOLIC PANEL, W/EGFR (67562) C BC (INCLUDES DIFF/PLT) (6399) F ERRITIN (457) I ROSANGELA AND TOTAL IRON BINDING CAPACITY (7573) L IPID PANEL (7600) P ROBNP, N TERMINAL (35669) P ROTHROMBIN TIME WITH INR (8847) V itamin D, 25-Hydroxy (335750) Angie Shafefr MD Cardiology: T he following medications were [...] every day Orders: COMPREHENSIVE METABOLIC PANEL, W/EGFR (58295) C BC (INCLUDES DIFF/PLT) (6399) F ERRITIN (457) I ROSANGELA AND TOTAL IRON BINDING CAPACITY (7573) L IPID PANEL (6210) P ROBNP, N TERMINAL (68650) P ROTHROMBIN TIME WITH INR (8847) V itamin D, 25-Hydroxy (662941) Angie Shaffer MD Cardiology: T he following [...] and 1/2 tablets by mouth every day [facility] Cardiology:This visi t has been a part [...] and 1/2 tablets by mouth every day [facility] Cardiology: T he following medications were removed from the medication list: Amlodipine 10 Mg Tablet (Amlodipine) ..... Take 1 tablet by mouth daily His updated medication list for this problem includes: Metoprolol Succinate 100 Mg Tablet Extended Release 24 Hr (Metoprolol succinate) ..... Take 1 and 1/2 tablets by mouth every day [facility] Cardiology [facility] Cardiology: T he following medications were [...] 63 (01/04/2022) LDL: 102 (01/04/2022) T (01/04/2022) [facility] Cardiology: O rders: C omplete Echo (89069) [facility] Cardiology: O rders: C omplete Echo (69413) [facility] Cardiology: T he following medications were [...] and 1/2 tablets by mouth every day [facility] Cardiology:Pt denies any CP or SOB. H is updated medication list for this problem includes: Amlodipine 10 Mg Tablet (Amlodipine) ..... Take 1 tablet by mouth daily Metoprolol Succinate 100 Mg Tablet Extended Release 24 Hr (Metoprolol succinate) ..... Take 1 and 1/2 tablets by mouth every day [facility] Cardiology: B P today: 134/74 P rior [...] and 1/2 tablets by mouth every day [facility]: H is updated medication list for this problem includes: Hydrochlorothiazide 25 Mg Tablet (Hydrochlorothiazide) ..... Take 1 tablet by mouth daily Amlodipine 10 Mg Tablet (Amlodipine) ..... Take 1 tablet by mouth daily Metoprolol Succinate 100 Mg Tablet Extended Release 24 Hr (Metoprolol succinate) ..... Take 1 and 1/2 tablets by mouth every day [facility]: H is updated medication list for [...] ..... Take 1 tablet by mouth daily [facility] Cardiology:LDL 102 on recent lab s [facility] Cardiology: T he following medications were [...] ..... Take 1 tablet by mouth daily [facility] Cardiology:Moderate on F/U echo today. Meds adjusted. will return in one month [facility] Cardiology:remains i n NSR he is [...] by mouth daily Angie Shaffer MD [facility]iology[facility] follow up Adrian Arevalo Cardiology follow up Adrian Arevalo Cardiology follow up Adrian Latift Cardiology follow up Adrian Latift Cardiology follow up Adrian Arevalo Cardiology follow up Adrian Arevalo Cardiology Angie [...] P TT: 32.6 (01/15/2011) Orders: E KG (CPT-49847) Angie Shaffer MD Follow-up after test s: [...] (07/28/2005) Orders: B ASIC METABOLIC PANEL W/EGFR (17255) Angie Shaffer MD Yearly follow-up, low sodium [...] tabs) ..... 25mg daily Orders: E KG (CPT-68612) B ASIC METABOLIC PANEL W/EGFR (16168) BP today: 124/88 P rior BP: 147/90 [...] to adequately assess the RVSP. - (02/26/2009) Angie Shaffer MD routine: H is updated [...] infarct or ischemia. (07/28/2005) Orders: E KG (CPT-13660) Angie Shaffer MD routine: H is updated [...] and bp and bmp: O rders: C [employer] Echo (CPT-50794) nAgie Shaffer MD return in 2 wks to [...] of 32mmHg. (09/13/2006) Orders: C omplete Echo (CPT-47003) Angie Shaffer MD return in 2 wks [...] or ischemia. (07/28/2005) Orders: C omplete Echo (CPT-01734) Angie Shaffer MD return in 2 wks to dev[facility]ak echo and bp and bmp: O rders: C omplete Echo (CPT-89007) Angie Shaffer MD Date Name Stress Regadenoson [...] d EKG Angie Shaffer MD completed SNOMED-CT: [id number] Current Medications Documented Angie Shaffer MD completed SNOMED-CT: [id number] Physical Exam, Performed: Pulse Exam of Foot Angie Shaffer MD completed SNOMED-CT: 986392567 002325 Current Medications Documented Angie Shaffer MD completed EKG Angie Shaffer MD completed EKG Angie Shaffer MD completed EKG Angie Shaffer MD completed EKG Angie Shaffer MD completed
--- OUTSIDE RECORDS SUMMARY | 2024-10-09 14:07 | XMS_ITS | Referral Summary ---
Author Organization [facility] C Address [address] [place] [address] Care Team Providers Care Workers' Compensation Claims Supervisor Name Role Phone Ant Hickman MD Primary [...] (06/09/2020): Added automatically from request for surgery [id number] Shoulder arthritis 06/09/2020 Overview (06/09/2020): Added automatically from request for surgery [id number] Tear of left rotator cuff 06/09/2020 Overview (06/09/2020): Added automatically from request for surgery [id number] Acute embolism and thrombosis of unspecified vei n 07/10/2019 Atrial fibrillation 06/14/2019 Preoperative cardiovascular examination 08/30/19 19 Wheezing 08/29/2018 Kyphosis deformity of spine 06/27/2018 Assessment & Plan (06/27/2018 12:41 PM COSTUME CUTTER): Mr. 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 file Not on file Not on file Last Filed Vital Signs Vital Sign Reading Time Taken Comments Blood Pressure 140/73 03/26/2022 10:07 AM COSTUME CUTTER Pulse 52 03/26/2022 10:07 AM COSTUME CUTTER Temperature 36.5 C (97.7 F) 03/26/2022 10:07 AM COSTUME CUTTER Respiratory Rate 16 03/26/2022 10:0 7 AM COSTUME CUTTER Oxygen Saturation 91% 03/26/2022 10: 07 AM COSTUME CUTTER Inhaled Oxygen Concentration - - Weight 70.7 kg (155 lb 13.8 oz) 022 10:07 AM COSTUME CUTTER Height 170.2 cm (5' 7) 03/26/2022 10:0 7 AM COSTUME CUTTER Body Mass Index 24.41 03/26/2022 10:07 AM COSTUME CUTTER Plan of Treatment Not on file Medical Devices Implanted Type Area Cook Mayonnaise Device Identifier Shelf Expiration Date Model / Serial / Lot Neurostimulator Neurostimulator Left: Back [employer] 6191-1-010 Simplex P Radiopaque Full Dose Cement Bone Sterile - [id number] Implanted:Qty: 1 on 07/01/2020 [facility] 05/15/2021 6191-1-010 / / [id number] [employer] [id number] Global Ap 52mm [place] Glenoid Peg Fixation Premieron - [id number] Implanted:Qty: 1 on 07/01/2020 by Fred Pelaez MD at [facility] [employer] [id number] / / [id number] [employer] [id number] Global Unite 16mm 137mm Modular Shoulder Standard Stem Humeral - [id number] Implanted:Qty: 1 on 07/01/2020 by Fred Pelaez MD at [facility] [employer] [id number] / / [id number] [employer] [id number] Unite 16mm Shoulder 135d Body Humeral [place] Sterile - [id number] Implanted:Qty: 1 on 07/01/2020 by Fred Pelaez MD at [facility] [employer] [id number] / / [id number] [employer] [id number] Global Unite 56mm 18mm Shoulder Eccentric Head Humeral - [id number] Implanted:Qty: 1 on 07/01/2020 by Fred Pelaez MD at [facility]ics [facility] [id number] / / [id number] Insurance MEDICARE [facility] Address: [facility] [address] [place] [address] [facility] CHOICE PLUS COMMERCIAL GENERIC MEDICARE MEDICARE [facility] MEDICARE [facility] [place] [address] Advance Directives For more information, please contact: [phone] * Full Code (Latest Code Status on File) Date Activated Date Inactivated Comments 07/01/2020 1:56 PM 07/02/2020 3:13 PM Care Teams Workers' Compensation Claims Supervisor Relationship Specialty Start Date End Date Ant Hickman MD PCP - General 02/21/17
--- OUTSIDE RECORDS SUMMARY | 2024-10-09 14:07 | XMS_ITS | Clinical Summary ---
Author Organization [facility] C Address [address] [place] [address] Care Team Providers Care Vessel Captain Name Role Phone Ant Hickman MD Primary [...] (06/09/2020): Added automatically from request for surgery [id number] Shoulder arthritis 06/09/2020 Overview (06/09/2020): Added automatically from request for surgery [id number] Tear of left rotator cuff 06/09/2020 Overview (06/09/2020): Added automatically from request for surgery [id number] Acute embolism and thrombosis of unspecified vei n 07/10/2019 Atrial fibrillation 06/14/2019 Preoperative cardiovascular examination 08/30/19 19 Wheezing 08/29/2018 Kyphosis deformity of spine 06/27/2018 Assessment & Plan (06/27/2018 12:41 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 Ponce complains mainly of cervical pain [...] SPINAL CORD STIMULATOR IMPLANT 05/16/2010 - 05/15/2011 M:[employer] - Functioning and uses daily CERVICAL FUSION Early Dr. 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 Not on file Not on file Not on file Obstetrics History Last Filed Vital Signs Vital Sign Reading Time Taken Comments Blood Pressure 140/73 03/26/2022 10:07 AM JOURNEYMAN POWERHOUSE OPERATOR Pulse 52 03/26/2022 10:07 AM JOURNEYMAN POWERHOUSE OPERATOR Temperature 36.5 C (97.7 F) 03/26/2022 10:07 AM JOURNEYMAN POWERHOUSE OPERATOR Respiratory Rate 16 03/26/2022 10:0 7 AM JOURNEYMAN POWERHOUSE OPERATOR Oxygen Saturation 91% 03/26/2022 10: 07 AM JOURNEYMAN POWERHOUSE OPERATOR Inhaled Oxygen Concentration - - Weight 70.7 kg (155 lb 13.8 oz) 022 10:07 AM JOURNEYMAN POWERHOUSE OPERATOR Height 170.2 cm (5' 7) 03/26/2022 10:0 7 AM JOURNEYMAN POWERHOUSE OPERATOR Body Mass Index 24.41 03/26/2022 10:07 AM JOURNEYMAN POWERHOUSE OPERATOR Plan of Treatment Health Maintenance Due Date [...] 12/26/2019, 07/15 Medical Devices Implanted Type Area Heating And Ventilating Tender Device Identifier Shelf Expiration Date Model / Serial / Lot Neurostimulator Neurostimulator Left: Back [employer] 6191-1-010 Simplex P Radiopaque Full Dose Cement Bone Sterile - [id number] Implanted:Qty: 1 on 07/01/2020 by Fred Pelaez MD at [facility] [employer] 05/15/2021 6191-1-010 / / [id number] [employer] [id number] Global Ap 52mm [place] Glenoid Peg Fixation Premieron - [id number] Implanted:Qty: 1 on 07/01/2020 by Fred Pelaez MD at [facility] [employer] [id number] / / [id number] [employer] [id number] Global Unite 16mm 137mm Modular Shoulder Standard Stem Humeral - [id number] Implanted:Qty: 1 on 07/01/2020 by Fred Pelaez MD at [facility] [employer] [id number] / / [id number] [employer] [id number] Unite 16mm Shoulder 135d Body Humeral [place]ocoat Sterile - [id number] Implanted:Qty: 1 on 07/01/2020 by Fred Pelaez MD at [facility] [employer] [id number] / / [id number] [employer] [id number] Global Unite 56mm 18mm Shoulder Eccentric Head Humeral - [id number] Implanted:Qty: 1 on 07/01/2020 by Fred Pelaez MD at [facility] [employer] [id number] / / [id number] Insurance MEDICARE [facility] CHOICE PLUS [facility] HMO/PPO Address: [address] [address] [place] [address] COMMERCIAL GENERIC MEDICARE MEDICARE [facility] MEDICARE [facility] Advance Directives For more information, please contact: [phone] * Full Code (Latest Code Status on File) Date Activated Date Inactivated Comments 07/01/2020 1:56 PM 07/02/2020 3:13 PM Care Teams Vessel Captain Relationship Specialty Start Date End Date Ant Hickman MD PCP - General 02/21/17
--- OUTSIDE RECORDS SUMMARY | 2024-10-09 14:07 | XMS_ITS | Continuity of Care Document ---
Author Organization [facility] Address [address] [place] [address] [place] [address] Phone Care Team Providers Care Track Machine Operator Repairer Name Role Phone Eh Cruz DO Unavailable Unavailable Advance Directives Directive Yes / No Effective Date File Name No Information Encounters Encounter Description Practice Location Reason(s) For Visit Diagnoses Date Provider Providers Copied on Encounter [facility], [address], [place], [place], [id number], [place] tel:[phone] [facility] No Information Nancy Dahl. [address] [facility], [place], [address], [place]. tel: [phone] Family History Family Member Type Diagnosis Age At Onset No Information Payers Payer name Insurance type Covered republican ID Authoriza tion(s) No Information Social History [...]
[2024-10-09 15:10] LABS: Basophils Absolute Auto 0.1 K/mm3 (0.0-0.1); Eosinophils Absolute Auto 0.1 K/mm3 (0-0.3); Eosinophils Percent Auto 1.4 % (0-4.4); Hemoglobin 10.4 g/dL (14.0-18.0); Immature Granulocyte Absolute 0.02 K/mm3 (0.00-0.031); Immature Granulocyte Percent A 0.3 % (0-0.5); Lymphocytes Absolute Auto 0.99 K/mm3 (0.9-3.2); Mean Corpuscular HGB Conc 32.5 g/dl (32-36); Mean Corpuscular Hemoglobin 33.4 pg (26-34); Mean Corpuscular Volume 102.9 fl (80-100); Mean Platelet Volume 10.9 fl (7.4-10.4); Monocytes Absolute Auto 0.6 K/mm3 (0.1-0.6); Monocytes Percent Auto 9.9 % (2.6-8.5); Neutrophils Absolute Auto 4.1 K/mm3 (1.3-6.7); Neutrophils Percent Auto 70.4 % (45.5-73.1); Platelet Count Result 224 k/mm3 (150-375); Red Blood Count 3.11 M/mm3 (4.6-6.20); Red Cell Distribution Width 13.8 % (11.5-14.5); White Blood Count 5.8 K/mm3 (4.5-10.0)
[2024-10-09] MEDS: AMPICILLIN SULB 3 GM/NS 100 ML 3 GM/100 ML VIAL IVPB ×2 (15:14→20:47)
[2024-10-09 15:19] LABS: INR 1.1; Prothrombin Time 14.8 Seconds (11.1-14.7)
[2024-10-09 15:21] LABS: Partial Thromboplastin Time 37.8 Seconds (22.3-36.8)
[2024-10-09 15:32] LABS: Alanine Aminotransferase 17 U/L (6-50); Albumin Level 4.4 g/dL (3.5-5.1); Alkaline Phosphatase 66 U/L (38-126); Anion Gap 5 mmol/L (4-12); Aspartate Amino Transferase 30 U/L (17-59); Bilirubin,Total 0.6 mg/dL (0.2-1.3); Blood Urea Nitrogen 17 mg/dL (9-20); CRP 0.9 mg/dL (<1.0); Calcium 8.6 mg/dL (8.4-10.2); Carbon Dioxide 28 mmol/L (22-30); Chloride 96 mmol/L (98-107); Estimated CRCL calculation 72 ml/min; Estimated Glomerular Filt Rate > 60; Glucose 90 mg/dL (65-110); Potassium 5.2 mmol/L (3.4-5.0); Sodium 129 mmol/L (137-145)
[2024-10-09 15:44] LABS: Lactic Acid Reflex 0.6 mmol/L (0.7-2.0)
[2024-10-09 16:10] VITALS: BMI 23.8; BMI 24.0
--- NOTE | 2024-10-09 16:16 | ADMGEN ---
This patient, Wilfredo Ponce, was admitted to Medical Room 343-01. Patient/family oriented to hospital policies and general routines including ID bracelet, bed and alarms, visiting hours, pain management, procedures, bathroom and other care routines, personal items, smoking policy, room service/diet, and visiting hours. Information on how to activate the Rapid Response Team has been discussed. Patient/Family are encouraged to report perceived risks to care and to ask questions if they do not understand what they are told or what they should do.
[2024-10-09 16:22] VITALS: BP 147/79; PULSE 53; RESP 16; TEMP 36.5; O2SAT 99
[2024-10-09] MEDS: ALPRAZolam (*CRX) 0.5 MG TABLET 1 MG PO (20:46)
[2024-10-09] MEDS: HYDROcodone/acetaminophen (*CRX) 10-325 MG TABLET 1 TAB PO (20:46)
[2024-10-09] MEDS: SODIUM CHLORIDE 0.9% IV 1,000 ML 125 ML IV CONT (20:46)
[2024-10-09] MEDS: traZODone HCL 50 MG TABLET PO (20:47)
[2024-10-09] MEDS: APIXABAN 5 MG TABLET PO (20:47)
[2024-10-09] MEDS: SACUBITRIL/VALSARTAN 24-26 MG TABLET 1 TAB PO (20:47)
[2024-10-09 21:30] VITALS: PULSE 57; O2SAT 94
[2024-10-09 22:05] VITALS: BP 126/65; PULSE 56; RESP 18; TEMP 36.2; O2SAT 97
[2024-10-10] MEDS: AMPICILLIN SULB 3 GM/NS 100 ML 3 GM/100 ML VIAL IVPB ×2 (04:22→08:55)
[2024-10-10] MEDS: SODIUM CHLORIDE 0.9% IV 1,000 ML 125 ML IV CONT (04:23)
--- NOTE | 2024-10-10 04:39 | PM.IMHP ---
H&P: HPI History of Present Illness Date/Time: 10/10/24 04:39 Chief Complaint: Infected dog bite Narrative: 74-year-old male with a past medical history anxiety, hypertension, osteoarthritis, GERD and atrial fibrillation on chronic anticoagulation with Eliquis who presented to the ER for possible infected dog bite on his ankle. The patient was bit by his own dog on 09/23/2024. He was placed on oral antibiotics with Keflex on 09/24 2024 and initially had some slight improvement in swelling but erythema persisted. Review of Systems Review of Systems: 12 systems were reviewed with pertinent positives and negatives per HPI. Except as documented in the HPI, all other systems were reviewed and are negative. [facility] Past Medical History Medical History (Updated 10/10/24 @ 05:04 by Sharmaine Brar DO) Transient atrial fibrillation When ill with appendicitis in 2020 on chronic anticoagulation with Eliquis Chronic narcotic use TRI (obstructive sleep apnea) Intolerant to CPAP Hypertension Cellulitis of finger of left hand Infected dog bite of hand Surgical History Surgical History (Updated 10/10/24 @ 05:04 by Sharmaine Brar DO) History of colonoscopy with polypectomy May 2020 demonstrating hyperplastic polyp repeat colonoscopy January 2021 was normal except for internal hemorrhoids History of tonsillectomy and adenoidectomy Status post cataract extraction of both eyes with insertion of intraocular lens Status post insertion of spinal cord stimulator History of left shoulder replacement (~2021) History of appendectomy (~2020) History of incision and drainage (08/18/22) Abscess of left index finger due to dog bite History of back surgery (~2021) Cervical and lumbar surgery due to spinal stenosis Social History Social History (Updated 10/10/24 @ 04:48 by Sharmaine Brar DO) Social History: Code status: Full code Surrogate decision maker: Paola () Smoking status: Never smoker Alcohol intake: never Drinks per week: 0 Alcohol use details: 1 drink a month Substance use: current Substance use type: marijuana Last use: 10/08/24 Do You Feel Safe in your Home?: Yes Lack of Transportation: No Lack of Food: Never True Current Housing: I Have Housing Concerned About Future Housing: No Difficulty Paying Gas/Electric Bills: No Difficulty Paying for Meds: No Currently Unemployed: No Education: High School Diploma/GED Difficulty w/ Childcare or Family Care: No Living arrangements: with family Additional living arrangements comments: Gender identity (if verbalized by the patient): Male Sexual Orientation (if Verbalized by the Patient): Straight or Heterosexual Spiritual care concerns: No Meds Home Medications and Allergies Home Medications ?Medication ?Instructions ?Recorded ?Confirmed ?Type alprazolam 1 mg tablet 1 mg PO QID PRN Anxiety 01/29/21 10/09/24 History amlodipine 10 mg tablet 5 mg PO QAM 01/29/21 10/09/24 History apixaban 5 mg tablet (Eliquis) 5 mg PO BID 01/29/21 10/09/24 History fluticasone propionate 50 50 mcg intranasal DAILY PRN 01/29/21 10/09/24 History mcg/actuation nasal Congestion spray,suspension hydrocodone 10 mg-acetaminophen 1 tablet PO QID PRN Pain 01/29/21 10/09/24 History 325 mg tablet metoprolol succinate 100 mg 100 mg PO QAM 01/29/21 10/09/24 History tablet,extended release 24 hr pregabalin 50 mg capsule 50 mg PO DAILY PRN nerve pain 01/29/21 10/09/24 History trazodone 50 mg tablet 50 mg PO HS 01/29/21 10/09/24 History diclofenac sodium 75 mg 75 mg PO BID PRN Pain 09/06/22 10/09/24 History tablet,delayed release hydrochlorothiazide 25 mg tablet 1 mg PO QAM PRN Edema 09/06/22 10/09/24 History omeprazole 20 mg capsule,delayed 20 mg PO DAILY 09/06/22 10/09/24 History release sacubitril 24 mg-valsartan 26 mg 1 tablet PO BID 09/06/22 10/09/24 History tablet (Entresto) cephalexin 500 mg capsule 500 mg PO Q8H #15 caps 09/09/22 10/09/24 Rx Allergies Allergy/AdvReac Type Severity Reaction Status Date / Time No Known Allergies Allergy Verified 10/09/24 12:29 Vital Signs Vital Signs - 24 hr 10/09/24 12:45 10/09/24 16:22 10/09/24 16:30 Temperature 97.7 F 97.7 F Pulse Rate 60 53 L Respiratory Rate 18 16 Blood Pressure 117/59 L 147/79 H Pulse Oximetry 95 99 Oxygen Delivery Room Air Room Air Fraction of Inspired Oxygen 05/27/25 20:00 10/09/24 21:30 10/09/24 22:03 Temperature 97.1 F L Pulse Rate 57 L 56 L Respiratory Rate 18 Blood Pressure 126/65 Pulse Oximetry 94 97 Oxygen Delivery Room Air Room Air Fraction of Inspired Oxygen 21 Exam Narrative: Weight 69.5 kg BMI 24 H&P: Results Labs Labs: Laboratory Tests 10/09/24 15:02 10/09/24 15:02 10/09/24 10/09/24 15:02 15:12 WBC 5.8 RBC 3.11 L Hgb 10.4 L Hct 32.0 L MCV 102.9 H MCH 33.4 MCHC 32.5 RDW 13.8 Plt Count 224 MPV 10.9 H Immature Gran % (Auto) 0.3 Neut % (Auto) 70.4 Lymph % (Auto) 17.0 L Mason % (Auto) 9.9 H Eos % (Auto) 1.4 Baso % (Auto) 1.0 Lymph # (Auto) 0.99 Mason # (Auto) 0.6 Eos # (Auto) 0.1 Baso # (Auto) 0.1 Abs Immat Gran (auto) 0.02 Absolute Neuts (auto) 4.1 Absolute Nucleated RBC 0.000 Nucleated RBC % 0.0 PT 14.8 H INR 1.1 APTT 37.8 H Sodium 129 L Potassium 5.2 H Chloride 96 L Carbon Dioxide 28 Anion Gap 5 BUN 17 Creatinine 0.70 Estim Creat Clear Calc 72 Estimated GFR > 60 Glucose 90 Lactic Acid 0.6 L Calcium 8.6 Total Bilirubin 0.6 AST 30 ALT 17 Alkaline Phosphatase 66 C-Reactive Protein 0.9 Total Protein 7.0 Albumin 4.4 Assessment and Plan Assessment and plan (1) Cellulitis of lower leg: Code(s): L03.119 - Cellulitis of unspecified part of limb Status: Acute (2) Dog bite: Qualifiers: Encounter type: initial encounter Qualified Code(s): W54.0XXA - Bitten by dog, initial encounter Code(s): W54.0XXA - Bitten by dog, initial encounter Status: Acute (3) Acute hyperkalemia: Code(s): E87.5 - Hyperkalemia Status: Acute (4) Atrial fibrillation: Qualifiers: Atrial fibrillation type: unspecified Qualified Code(s): I48.91 - Unspecified atrial fibrillation Code(s): I48.91 - Unspecified atrial fibrillation Status: Acute (5) Hypertension: Qualifiers: Hypertension type: primary hypertension Qualified Code(s): I10 - Essential (primary) hypertension Code(s): I10 - Essential (primary) hypertension Status: Acute (6) Chronic narcotic use: Code(s): F11.90 - Opioid use, unspecified, uncomplicated Status: Acute Plan Patient has been admitted for treatment cellulitis due to dog bite that failed outpatient management. Patient been started empiric antibiotic therapy with Unasyn. The patient is afebrile and white count and CRP is normal. Will repeat CBC in a.m. Patient has some mild hyperkalemia with normal renal function. He is not on any potassium supplements. This could possibly be due to dehydration verses Entresto use. Will home give IV fluids for a total of 2 L and then re-evaluate BMP in a.m.. If hyperkalemia persists will need to hold Entresto and then maybe consider restarting metoprolol that he had previously been on. Patient did have isolated transient episode of AFib when he was ill with appendicitis. He is on chronic anticoagulation with Eliquis. Quality VTE Prophylaxis VTE prophylaxis: pharmacologic ordered (Continue home Eliquis.) Hospitalist MIPS Advance Care Plan I have confirmed that the patient's Advanced Care Plan is present, code status is documented, or surrogate decision maker is listed in patient medical record.: Yes Medication Reconciliation I have utilized all available resources to obtain, update and review the patients current medications (includes all prescriptions, OTC, herbals, cannabis, and nutritional supplements).: Yes
[2024-10-10 05:50] LABS: Basophils Absolute Auto 0.1 K/mm3 (0.0-0.1); Basophils Percent Auto 1.3 % (0.2-1.2); Eosinophils Absolute Auto 0.2 K/mm3 (0-0.3); Eosinophils Percent Auto 4.4 % (0-4.4); Hematocrit 31.4 % (42.0-52.0); Hemoglobin 10.1 g/dL (14.0-18.0); Immature Granulocyte Absolute 0.02 K/mm3 (0.00-0.031); Immature Granulocyte Percent A 0.4 % (0-0.5); Lymphocytes Percent Auto 29.4 % (18.3-44.2); Mean Corpuscular HGB Conc 32.2 g/dl (32-36); Mean Corpuscular Volume 102.6 fl (80-100); Mean Platelet Volume 11.2 fl (7.4-10.4); Monocytes Absolute Auto 0.8 K/mm3 (0.1-0.6); Neutrophils Absolute Auto 2.8 K/mm3 (1.3-6.7); Neutrophils Percent Auto 50.5 % (45.5-73.1); Platelet Count Result 214 k/mm3 (150-375); Red Blood Count 3.06 M/mm3 (4.6-6.20); Red Cell Distribution Width 13.7 % (11.5-14.5); White Blood Count 5.4 K/mm3 (4.5-10.0)
[2024-10-10 06:00] VITALS: BP 135/70; PULSE 55; RESP 20; TEMP 36.1; O2SAT 100
[2024-10-10 06:06] LABS: Anion Gap 6 mmol/L (4-12); Blood Urea Nitrogen 13 mg/dL (9-20); Calcium 8.5 mg/dL (8.4-10.2); Carbon Dioxide 27 mmol/L (22-30); Chloride 99 mmol/L (98-107); Estimated CRCL calculation 81 ml/min; Estimated Glomerular Filt Rate > 60; Glucose 86 mg/dL (65-110); Potassium 4.5 mmol/L (3.4-5.0); Sodium 132 mmol/L (137-145)
[2024-10-10] MEDS: ALPRAZolam (*CRX) 0.5 MG TABLET 1 MG PO (06:40)
[2024-10-10] MEDS: HYDROcodone/acetaminophen (*CRX) 10-325 MG TABLET 1 TAB PO (06:40)
[2024-10-10 08:00] VITALS: PULSE 55; RESP 20; O2SAT 100
--- NOTE | 2024-10-10 08:52 | P.SS_ITS ---
Same Day Admit/Disch: HPI History of Present Illness Chief complaint: cellulitis secondary to dog bite Narrative: Wilfredo Ponce is a 74 year old male with a past medical history of anxiety, hypertension, osteoarthritis, GERD and atrial fibrillation on chronic anticoagulation with Eliquis who presented to the ER for possible infected dog bite on his ankle.? The patient was bit by his own dog on 09/23/2024.? He reports that he was feeding his dogs pieces of popcorn. One of the pieces of popcorn rebounded and rolled under his foot. The dogs gotten a scuffle and a took a bite out of the patient's medial right calf just above the ankle. He saw his primary care provider and placed on oral antibiotics with Keflex on 09/24 2024. He initially had some slight improvement in swelling but erythema persisted. He denied having any fevers or chills. He denied having any other symptoms. However, when the erythema was not improving when he was near the end of the antibiotic course he came in for evaluation because he had had a prior abscess of his finger from her prior dog bite several years ago. His white count and CBC were normal. He was afebrile. But given his failure of outpatient antibiotic therapy he was admitted for observation. He received 3 doses of Unasyn with improvement in the erythema of his leg. He reports that the erythema is leg is improved significantly. He still notices some edema. He reports that the area is mildly tender to palpation. He has not noticed any pu rulence or drainage. [facility] Past Medical History Medical History (Updated 10/10/24 @ 09:11 by Sharmaine Brar DO) TRI (obstructive sleep apnea) Intolerant to CPAP Transient atrial fibrillation When ill with appendicitis in 2020 on chronic anticoagulation with Eliquis Chronic narcotic use Hypertension Cellulitis of finger of left hand Infected dog bite of hand Surgical History Surgical History (Updated 10/10/24 @ 05:04 by Sharmaine Brar DO) History of colonoscopy with polypectomy May 2020 demonstrating hyperplastic polyp repeat colonoscopy January 2021 was normal except for internal hemorrhoids History of tonsillectomy and adenoidectomy Status post cataract extraction of both eyes with insertion of intraocular lens Status post insertion of spinal cord stimulator History of left shoulder replacement (~2021) History of appendectomy (~2020) History of incision and drainage (08/18/22) Abscess of left index finger due to dog bite History of back surgery (~2021) Cervical and lumbar surgery due to spinal stenosis Social History Social History (Updated 10/10/24 @ 08:59 by Sharmaine Brar DO) Social History: He lives with his and their 3 dogs. 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 He denies any history of tobacco use. He drinks an alcoholic beverage about once a month. He does smoke marijuana. Code status: Full code Surrogate decision maker: Paola () Smoking status: Never smoker Alcohol intake: current Alcohol use details: 1 drink a month Substance use: current Substance use type: marijuana Last use: 10/08/24 Do You Feel Safe in your Home?: Yes Lack of Transportation: No Lack of Food: Never True Current Housing: I Have Housing Concerned About Future Housing: No Difficulty Paying Gas/Electric Bills: No Difficulty Paying for Meds: No Currently Unemployed: No Education: High School Diploma/GED Difficulty w/ Childcare or Family Care: No Living arrangements: with family Additional living arrangements comments: Gender identity (if verbalized by the patient): Male Sexual Orientation (if Verbalized by the Patient): Straight or Heterosexual Spiritual care concerns: No Same Day Admit/Disch: Med Pre-admit Medications Home Medications ?Medication ?Instructions ?Recorded ?Confirmed ?Type alprazolam 1 mg tablet 1 mg PO QID PRN Anxiety 01/29/21 10/09/24 History amlodipine 10 mg tablet 5 mg PO QAM 01/29/21 10/09/24 History apixaban 5 mg tablet (Eliquis) 5 mg PO BID 01/29/21 10/09/24 History fluticasone propionate 50 50 mcg intranasal DAILY PRN 01/29/21 10/09/24 History mcg/actuation nasal Congestion spray,suspension hydrocodone 10 mg-acetaminophen 1 tablet PO QID PRN Pain 01/29/21 10/09/24 History 325 mg tablet pregabalin 50 mg capsule 50 mg PO DAILY PRN nerve pain 01/29/21 10/09/24 History trazodone 50 mg tablet 50 mg PO HS 01/29/21 10/09/24 History diclofenac sodium 75 mg 75 mg PO BID PRN Pain 09/06/22 10/09/24 History tablet,delayed release hydrochlorothiazide 25 mg tablet 1 mg PO QAM PRN Edema 09/06/22 10/09/24 History omeprazole 20 mg capsule,delayed 20 mg PO DAILY 09/06/22 10/09/24 History release sacubitril 24 mg-valsartan 26 mg 1 tablet PO BID 09/06/22 10/09/24 History tablet (Entresto) cephalexin 500 mg capsule 500 mg PO Q8H #15 caps 09/09/22 10/09/24 Rx Review of Systems Review of Systems 10 systems were reviewed with pertinent positives and negatives per HPI. Except as documented in the HPI, all other systems were reviewed and are negative. Exam Narrative: Weight 69.5 kg BMI 24 Const: Other: No acute distress, well-developed well-nourished, appears stated age HENMT: Other: Mucous membranes are moist, no oral pharyngeal erythema, head is normocephalic atraumatic Eyes: Other: No scleral icterus, no conjunctival pallor, bilateral lens replacements noted Neck: Other: No lymphadenopathy, no thyromegaly Resp: Other: Clear to auscultation bilaterally, no increased work of breathing Cardio: Other: Sinus bradycardia, 2+ bilateral radial pedal pulses, no JVD GI: Other: Soft, nontender Skin: Other: Patient has chronic darkened pigment depositions I anterior shins bilaterally right greater than left, patient has a open ulceration with early granulomatous tissue formation in the medial right calf just proximal to the ankle about the size of a baseball with mild surrounding erythema Neuro: Other: Alert oriented x4, speech is clear, no facial asymmetry, no localizing neurologic deficits noted during the course of conversation Extrem: Other: No clubbing or cyanosis Psych: Other: Appropriate mood and affect, pleasant and cooperative, judgment and insight intact DS: Data Data Completed and Pending Labs on day of discharge: Labs from last 24 hours 10/10/24 10/09/24 10/09/24 05:38 15:12 15:02 WBC 5.4 5.8 RBC 3.06 L 3.11 L Hgb 10.1 L 10.4 L Hct 31.4 L 32.0 L MCV 102.6 H 102.9 H MCH 33.0 33.4 MCHC 32.2 32.5 RDW 13.7 13.8 Plt Count 214 224 MPV 11.2 H 10.9 H Immature Gran % (Auto) 0.4 0.3 Neut % (Auto) 50.5 70.4 Lymph % (Auto) 29.4 17.0 L Josephine % (Auto) 14.0 H 9.9 H Eos % (Auto) 4.4 1.4 Baso % (Auto) 1.3 H 1.0 Lymph # (Auto) 1.60 0.99 Josephine # (Auto) 0.8 H 0.6 Eos # (Auto) 0.2 0.1 Baso # (Auto) 0.1 0.1 Abs Immat Gran (auto) 0.02 0.02 Absolute Neuts (auto) 2.8 4.1 Absolute Nucleated RBC 0.000 0.000 Nucleated RBC % 0.0 0.0 PT 14.8 H INR 1.1 APTT 37.8 H Sodium 132 L 129 L Potassium 4.5 5.2 H Chloride 99 96 L Carbon Dioxide 27 28 Anion Gap 6 5 BUN 13 17 Creatinine 0.62 L 0.70 Estim Creat Clear Calc 81 72 Estimated GFR > 60 > 60 Glucose 86 90 Lactic Acid 0.6 L Calcium 8.5 8.6 Total Bilirubin 0.6 AST 30 ALT 17 Alkaline Phosphatase 66 C-Reactive Protein 0.9 Total Protein 7.0 Albumin 4.4 DS: Summary Hospital Course Reason for hospitalization: Left medial ankle cellulitis following dog bite failed outpatient treatment Hospital Course: The patient was admitted and received 3 doses of Unasyn. The erythema and edema in his legs improve significantly. Patient remains afebrile. His white count is still within normal limits. His potassium which had been mildly elevated improved after 1.5 L of maintenance fluids. The patient does have chronic anemia but hemoglobin is stable. However he does now have a megaloblastic component to his anemia. He would benefit from outpatient evaluation with B12 and folic acid level. Status at Discharge Cognitive/behavioral status at discharge: Stable and appropriate Functional status at discharge: independent ambulation Overall status at discharge: patient is back to baseline Time Spent with Patient Time attestation: Total time spent providing and/or coordinating discharge services: Time spent: Greater than 30 minutes DS: Admitting Diagnosis Discharge Date 09/20/2024 Admitting Diagnosis Left ankle cellulitis due to dog bite DS: Discharge Diagnosis Discharge Diagnosis (1) Cellulitis of lower leg: Code(s): L03.119 - Cellulitis of unspecified part of limb Status: Acute (2) Dog bite: Qualifiers: Encounter type: initial encounter Qualified Code(s): W54.0XXA - Bitten by dog, initial encounter Code(s): W54.0XXA - Bitten by dog, initial encounter Status: Acute (3) Acute hyperkalemia: Code(s): E87.5 - Hyperkalemia Status: Acute Plan Patient's cellulitis has improved with 3 doses of Unasyn. The patient states he feels well enough to go home. He will be discharged with a 7 day supply of Augmentin. He is aware that he needs to take the entire antibiotic course as directed. He had mild hyperkalemia likely due to relative dehydration. He admitted to not getting up as often and likely not drinking as much fluid due to trace to stay off of his leg. He received 1.5 L of isotonic fluid administration. His repeat potassium level is normalized. Will continue the patient's home Entresto. If patient develops issues with recurrent hyperkalemia with may need to make adjustments in his antihypertensive. Otherwise the remainder the patient's home medications will be resumed. Discharge Plan Discharge Attending physician on discharge: Sharmaine Brar Discharging Clinician: Sharmaine Brar Anticipated Discharge Date/Time: 10/10/24 09:16 Patient Disposition: Home Activity: as tolerated Diet: heart healthy Wound Care Instructions: incision open to air Discharge Instructions: He will need to follow-up with his primary care physician in the next 3-5 days or return to the ER if worsening erythema, developing drainage, fevers, chills or otherwise concerned. Patient Instructions: Antibiotic Form Patient Language: French Stand Alone Forms: General Discharge Information Follow-up/Referrals: Vick,Ant Rodriguez MD [Primary Care Provider] - Call for Appointment Discharge Medications: New amoxicillin-pot clavulanate 875-125 mg tablet 1 tablet PO Q12H Qty: 14 0RF Continued omeprazole 20 mg capsule,delayed release(DR/EC) 20 mg PO DAILY diclofenac sodium 75 mg tablet,delayed release (DR/EC) 75 mg PO BID PRN (Reason: Pain) hydrochlorothiazide 25 mg tablet 1 mg PO QAM PRN (Reason: Edema) Entresto 24-26 mg tablet 1 tablet PO BID trazodone 50 mg tablet 50 mg PO HS alprazolam 1 mg tablet 1 mg PO QID PRN (Reason: Anxiety) hydrocodone-acetaminophen 10-325 mg tablet 1 tablet PO QID PRN (Reason: Pain) amlodipine 10 mg tablet 5 mg PO QAM fluticasone propionate 50 mcg/actuation spray,suspension 50 mcg INTRANASAL DAILY PRN (Reason: Congestion) pregabalin 50 mg capsule 50 mg PO DAILY PRN (Reason: nerve pain) Eliquis 5 mg Tablet 5 mg PO BID Discontinued cephalexin 500 mg capsule 500 mg PO Q8H Qty: 15 0RF Date of admission: 10/09/24 14:32 Primary Care Provider: NettaAnt Admitting Provider: Corey Álvarez Attending physician on admission: Corey Álvarez Condition: Improved Quality VTE Prophylaxis VTE prophylaxis: pharmacologic ordered (Lovenox 40 mg subQ daily.) Hospitalist MIPS Advance Care Plan I have confirmed that the patient's Advanced Care Plan is present, code status is documented, or surrogate decision maker is listed in patient medical record.: Yes Medication Reconciliation I have utilized all available resources to obtain, update and review the patients current medications (includes all prescriptions, OTC, herbals, cannabis, and nutritional supplements).: Yes Heart Failure (Exclusion) Patient has history of Heart Transplant or Left Ventricular Assistive Device?: No IF YES, STOP HERE Heart Failure (Qualifier) Patient has current or prior documentation of LVEF less than or equal to 40%, or mod/servere depressed LVSF?: No IF NO, STOP HERE
[2024-10-10] MEDS: amLODIPine BESYLATE 5 MG TABLET PO (08:55)
[2024-10-10] MEDS: PANTOPRAZOLE 40 MG TABLET PO (08:55)
[2024-10-10] MEDS: APIXABAN 5 MG TABLET PO (08:55)
[2024-10-10] MEDS: SACUBITRIL/VALSARTAN 24-26 MG TABLET 1 TAB PO (08:55)
== END 2024-10-10 11:11 | disposition home or self-care (01) ==
LOC: ANHED 14:32 → ANH3MED 10-10 09:19
PROVIDERS: Admitting Provider Internal Medicine; Emergency Provider Emergency Medicine; PCP Internal Medicine; Visit Provider Internal Medicine
DX: L03.115 Cellulitis of right lower limb (principal); S91.051A Open bite, right ankle, initial encounter; W54.0XXA Bitten by dog, initial encounter; E87.5 Hyperkalemia; G47.33 Obstructive sleep apnea (adult) (pediatric); I10 Essential (primary) hypertension; M19.90 Unspecified osteoarthritis, unspecified site; K21.9 Gastro-esophageal reflux disease without esophagitis; I48.91 Unspecified atrial fibrillation; Z79.01 Long term (current) use of anticoagulants; Z79.899 Other long term (current) drug therapy
CPT/HCPCS: 36415; 80048; 80053; 83605; 85025; 85610; 85730; 86140; 87040; 96365; 96366; 96375; 99285; A9270; G0378; J0295; J7030

== ENCOUNTER 2024-11-02 13:46 | Outpatient (CLI) | payer MEDICARE, SELFPAY ==
--- NOTE | ~2024-11-02 | CT_ITS ---
Noncontrast CT scan of the lumbar spine CLINICAL HISTORY: Spinal stenosis TECHNIQUE: Axial noncontrast imaging of the lumbar spine was performed. Sagittal and coronal reformat sandi images were constructed. Dose reduction technique was used on this scan by utilizing automated ex posure control and iterative reconstruction technique. The dose-length product (DLP) was 362.92 mGy-c m. FINDINGS: There is levoscoliosis of the thoracolumbar spine with apex at L2, with Moore angle of 30 de grees. There is mild chronic loss of height of L2, L3, L4, L5 vertebral bodies. At L1-L2, there is severe degenerative disc narrowing and moderate facet arthropathy. There is mild d isc bulge. There is probable moderate spinal canal stenosis/thecal sac compression. There is moderate left neural foraminal narrowing. There is moderate to severe right neural foraminal narrowing. At L2-L3, there is severe degenerative disc narrowing. There is moderate facet arthropathy. Probable mild to moderate central canal stenosis. There is advanced bilateral neural foraminal narrowing, righ t worse than left. At L3-L4, there is severe degenerative disc narrowing. There is moderate facet arthropathy with sever e spinal canal stenosis probably present. There is severe left neural foraminal narrowing. There is m oderate to severe right neural foraminal narrowing. At L4-L5, there is severe degenerative disc narrowing. There is moderate to advanced facet arthropath y. No damion central canal stenosis. There is severe bilateral neural foraminal compromise. At L5-S1, there is severe degenerative disc narrowing. No definite canal stenosis. There is moderate to severe bilateral neural foraminal narrowing. Paravertebral soft tissues are unremarkable. Impression: Severe degenerative spondylosis throughout the lumbar spine, as detailed above, with associated levos coliosis. Probable mild chronic loss of height of the L2, L3, L4, and L5 vertebral bodies. Reviewed, dictated and finalized at location M. Impression: Severe degenerative spondylosis throughout the lumbar spine, as detailed above, with associated levoscoliosis. Probable mild chronic loss of height of the L2, L3, L4, and L5 vertebral bodies .
== END 2024-11-02 13:47 | disposition home or self-care (01) ==
PROVIDERS: PCP Internal Medicine; Visit Provider Internal Medicine
DX: M48.061 Spinal stenosis, lumbar region without neurogenic claudication (principal); M43.06 Spondylolysis, lumbar region; R29.890 Loss of height
CPT/HCPCS: 72131

== ENCOUNTER 2025-01-14 16:56 | Emergency (ER) | payer MEDICARE, SELFPAY ==
--- OUTSIDE RECORDS SUMMARY | 2003-03-14 10:30 | XMS_ITS | Continuity of Care Document ---
Author Organization [facility] Address [id number] [place] [address] [place] [address] Phone Care Team Providers Care Bun Panner Name Role Phone Eh Cruz DO Unavailable Unavailable Advance Directives Directive Yes / No Effective Date File Name No Information Encounters Encounter Description Practice Location Reason(s) For Visit Diagnoses Date Provider Providers Copied on Encounter [facility], [address], [place], [place], [id number], [place] tel:[phone] [facility] No Information Nancy Dahl. [address] [facility], [place], [address], [place]. tel: [phone] Family History Family Member Type Diagnosis Age At Onset No Information Payers Payer name Insurance type Covered democrat ID Authoriza tion(s) No Information Social History Type Description Quantity Date Captured Comments Sex Male Smoking Status No Information Chief Complaint And Reason For Visit No Information Reason For Referral Reason For Referral No Information History Of Present Illness Encounter Date Complaint History Of Prese nt Illness No Information Functional Status Date Functional Assessmen t No Information Instructions Date Instruction Additional Infor mation No Information Assessments Type Assessment Date No Information Patient Care Teams Name Effective Dates (start - stop) Status Members No Information
--- NOTE | ~2025-01-14 | XR_ITS ---
EXAMINATION: XR tibia fibula RT 2V DATE: 01/14/2025 17:40 INDICATION: Chronic right lower leg wound TECHNIQUE: Anteroposterior and lateral views of the right tibia and fibula were obtained on overlapping proximal and distal images. FINDINGS: Bone alignment is normal. No fracture. Right knee osteoarthritis with chondrocalcinosis at the medial and lateral compartment and moderate joint space narrowing in the medial compartment. Soft tissue swelling about the calf with skin thickening and subcutaneous edema most prominent along the lateral aspect of the mid to distal right calf extending over the lateral malleolus. No cortical erosions to suggest osteomyelitis. No soft tissue gas. No evident knee or ankle joint effusion. IMPRESSION: 1. Moderate medial compartment prominent osteoarthritis of the right knee. No evident osteomyelitis or other acute osseous abnormality. Reviewed, dictated and finalized at location A. IMPRESSION: 1. Moderate medial compartment prominent osteoarthritis of the right knee. No e vident osteomyelitis or other acute osseous abnormality.
--- OUTSIDE RECORDS SUMMARY | 2025-01-14 16:59 | XMS_ITS | Clinical Summary ---
Author Organization [facility] Address [address] [place] [address] Care Team Providers Care Annealing Furnace Operator Name Role Phone Ant Hickman MD Primary Care Provider [phone] Source Comments [facility],non-owned Affiliates and Associated Physician Practices is amultiple site organization consisting of ambulatory clinics and hospital sitesin [place], [place], [place] and [place]. This disclosure is being madepursuant to the Care Everywhere program and may not contain all information available regarding this patient. 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
--- OUTSIDE RECORDS SUMMARY | 2025-01-14 16:59 | XMS_ITS | Clinical Summary ---
Author Organization [facility] Address [address] [place] [address] Care Team Providers Care Gas Operation Manager Name Role Phone Ant Hickman MD Primary [...] (06/09/2020): Added automatically from request for surgery [id number] Shoulder arthritis 06/09/2020 Overview (06/09/2020): Added automatically from request for surgery [id number] Tear of left rotator cuff 06/09/2020 Overview (06/09/2020): Added automatically from request for surgery [id number] Acute embolism and thrombosis of unspecified vei n 07/10/2019 Atrial fibrillation 06/14/2019 Preoperative cardiovascular examination 08/30/19 19 Wheezing 08/29/2018 Kyphosis deformity of spine 06/27/2018 Assessment & Plan (06/27/2018 12:41 PM MANAGER HOME HEALTHCARE): Mr. 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 Not on file Not on file Not on file Obstetrics History Last Filed Vital Signs Vital Sign Reading Time Taken Comments Blood Pressure 140/73 03/26/2022 10:07 AM MANAGER HOME HEALTHCARE Pulse 52 03/26/2022 10:07 AM MANAGER HOME HEALTHCARE Temperature 36.5 C (97.7 F) 03/26/2022 10:07 AM MANAGER HOME HEALTHCARE Respiratory Rate 16 03/26/2022 10:0 7 AM MANAGER HOME HEALTHCARE Oxygen Saturation 91% 03/26/2022 10: 07 AM MANAGER HOME HEALTHCARE Inhaled Oxygen Concentration - - Weight 70.7 kg (155 lb 13.8 oz) 022 10:07 AM MANAGER HOME HEALTHCARE Height 170.2 cm (5' 7) 03/26/2022 10:0 7 AM MANAGER HOME HEALTHCARE Body Mass Index 24.41 03/26/2022 10:07 AM MANAGER HOME HEALTHCARE Plan of Treatment Health Maintenance Due Date Last Done Comments Hepatitis C Screening 1950 Hepatitis B Screening 02/24[birth year]1966 Zoster Vaccine (1 of 2) 02/24/1998 Well Visit 65+ 02/24/2013 Depression Screening 06/09/2021 06/09/2020, 06/09/2020, 06/27/2018, Additional history exists Fall Risk Assessment 07/02/2021 07/02/2020 Covid-19 Vaccine ( - 2023-2 5 season) 2024 04/22/2021 Influenza Vaccine (#1) 2025 , 02/20/2020, 02/14/2020, Additional history exists DTaP/Tdap/Td Vaccine (2 - Td or Tdap) 02/19/2027 02/19/2017 Pneumococcal vaccine 65+ Completed 12/26/2019, 07/15 Medical Devices Implanted Type Area Inspector Toys Device Identifier Shelf Expiration Date Model / Serial / Lot Neurostimulator Neurostimulator Left: Back [employer] 6191-1-010 Simplex P Radiopaque Full Dose Cement Bone Sterile - [id number] Implanted:Qty: 1 on 07/01/2020 by Fred Pelaez MD at [facility] [employer] 05/15/2021 6191-1-010 / / [id number] [employer] [id number] Global Ap 52mm [place]verse Glenoid Peg Fixation Premieron - [id number] Implanted:Qty: 1 on 07/01/2020 by Fred Pelaez MD at [facility] [employer] [id number] / / [id number] [employer] [id number] Global Unite 16mm 137mm Modular Shoulder Standard Stem Humeral - [id number] Implanted:Qty: 1 on 07/01/2020 by Fred Pelaez MD at [facility] [employer] [id number] / / [id number] [employer] [id number] Unite 16mm Shoulder 135d Body Humeral Por[place]oat Sterile - [id number] Implanted:Qty: 1 on 07/01/2020 by Fred Pelaez MD at [facility] [employer] [id number] / / [id number] [employer] [id number] Global Unite 56mm 18mm Shoulder Eccentric Head Humeral - [id number] Implanted:Qty: 1 on 07/01/2020 by Fred Pelaez MD at [facility] [employer] [id number] / / [id number] Insurance MEDICARE [facility] CHOICE PLUS COMMERCIAL GENERIC MEDICARE MEDICARE [facility] MEDICARE [facility] Advance Directives For more information, please contact: [phone] * Full Code (Latest Code Status on File) Date Activated Date Inactivated Comments 07/01/2020 1:56 PM 07/02/2020 3:13 PM Care Teams Gas Operation Manager Relationship Specialty Start Date End Date Ant Hickman MD PCP - General 02/21/17
--- OUTSIDE RECORDS SUMMARY | 2025-01-14 16:59 | XMS_ITS | Clinical Summary ---
Author Organization [facility] Address [facility] [place] [address] Care Team Providers Care Gas Main And Line Fitter Name Role Phone Ant Hickman MD Primary Care Provider [phone] Angie Shaffer MD Unavailable [phone] Hemant Polanco MD Unavailable [phone] Allergies No known active allergies Medications ALPRAZolam 1 MG tablet Take 1 mg by mouth 4 (four) times daily as needed. 2 Active HYDROcodone-narciso taminophen 10-325 MG tablet Take 1 tablet by mouth every 6 (six) hours as needed. 2 Active pregabalin 50 MG capsule Take 50 mg by mouth 2 (two) times daily as needed. 2 Active lisinopril 40 MG tablet Take 40 mg by mouth daily. Active metoprolol succinate ER 100 MG 24 hr tablet Take 150 mg by mouth daily. Active omeprazole 20 MG capsule Take 20 mg by mouth daily. Active amLODIPine 10 MG tablet Take 10 mg by mouth daily. Active traZODone 50 MG tablet Take 50 mg by mouth nightly at bedtime. Active terbinafine 1 % cream Apply topically 2 (two) times daily. Active NON FORMULARY Take 1 tablet by mouth daily. Supra beta prostate Active montelukast 10 MG tablet montelukast 10 mg tablet 1 Active senna-docusate 8.6-50 MG tablet Take 1 tablet by mouth daily. 60 tablet 1 2 Active Active Problems No known active problems Family History Medical History Relation Comments Hypertension Father Dementia Mother Relation Status Comments Father Mother Social History Tobacco Use Types Packs/Day Years Used Date Smoking Tobacco: Never Smokeless Tobacco: Never Alcohol Use Standard Drinks/Week Comments Not Currently 0 (1 standard drink = 0.6 oz pur e alcohol) Sex and Gender Information Value Date Recorded Sex Assigned at Not on file Legal Sex Male 1:35 PM CDT Gender Identity Not on file Sexual Orientation Not on file Last Filed Vital Signs Vital Sign Reading Time Taken Comments Blood Pressure 119/74 11/19/2021 1:10 PM CDT Pulse 48 11/19/2021 1:10 PM CDT Temperature 36.6 C (97.9 F) 11/19/2021 1:10 PM CDT Respiratory Rate 16 11/19/2021 1:10 PM CDT Oxygen Saturation 95% 11/19/2021 1:10 PM CDT Inhaled Oxygen Concentration - - Weight 67.2 kg (148 lb 2.4 oz) 11/19/2021 6:31 A M CDT Height 175.3 cm (5' 9) 11/12/2021 10:10 AM CDT Body Mass Index 21.88 11/12/2021 10:10 AM CDT Plan of Treatment Health Maintenance Due Date Last Done Comments Hepatitis C 02/24/1968 Zoster Vaccines (1 of 2) 02/24/1998 Annual Medicare Wellness Visit 02/24/2013 RSV Immunization or 60+ Years (1 - 1-dose 75+ series) 02/24/2023 COVID-19 Vaccine ( season) 2024 11/06/2021, 04/22/2021, 07/14/2020, Additional history exists DTaP, Tdap and Td Vaccines (2 - Td or Tdap) 02/19/2027 02/19/2017 Pneumococcal Vaccine: 50+ Years Completed 12/26/2019, 08/06/2014 Meningococcal B Vaccine Aged Out No l onger eligible based on patient's age to complete this topic Meningococcal Vaccine Aged Out No christopher king eligible based on patient's age to complete this topic RSV Immunizations Under 20 Months Aged Out No longer eligible based on patient's age to complete this topic Medical Devices Implanted Type Area Reverberatory Furnace Supervisor Device Identifier Shelf Expiration Date Model / Serial / Lot Lumbar Stimulator Insurance MEDICARE [facility] Care Teams Gas Main And Line Fitter Relationship Specialty Start Date End Date Ant Hickman MD [address] [facility] [address] [place] [id number] PCP - General INTERNAL MEDICINE 09/15/21 [place] [address] [place] [phone] CARDIOVASCULAR DISEASE 11/12/21 Hemant Polanco MD [address] [address] Surgeon NEUROLOGICAL SURGERY 11/12/21
--- OUTSIDE RECORDS SUMMARY | 2025-01-14 16:59 | XMS_ITS | Patient Health Record ---
Author Organization [facility] [employer] Address [address] [facility] [address] [place] [address] Care Team Providers Care Insole Department Worker Name Role Phone Bhavik Collins Unavailable [phone] Reason For Referral No Information Medications Medication SIG (Take, Route, Frequency, Duration) Notes Start Date End Date Status ALPRAZolam 1 MG Tablet Oral Active Metoprolol Succinate ER 100 MG Tablet Extended Release 24 Hour Oral Active Fluticasone Propionate Diskus 50 MCG/ACT Aerosol Powder Breath Activated Inhalation *Reorder from [facility] for eRx and Interaction Alerts* Active hydroCHLOROthiazide 25 MG Tablet Oral Active Diclofenac Sodium 75 MG Tablet Delayed Release Oral Activ e Azithromycin 250 MG Tablet Oral Active Clindamycin HCl 150 MG Capsule Oral Active Montelukast Sodium 10 MG Tablet Oral Active Lyrica 50 MG Capsule Oral Active HYDROcodone-Acetaminophen 10-325 MG Tablet Oral Active Lisinopril 40 MG Tablet Oral Active HYDROcodone-Acetaminophen 7.5-325 MG Tablet Oral Active Eliquis 5 MG Tablet Oral Active Symbicort 160-4.5 MCG/ACT Aerosol Inhalation Active traZODone HCl 50 MG Tablet Oral Active Omeprazole 20 MG Capsule Delayed Release Oral Active amLODIPine Besylate 10 MG Tablet Oral Active Social History Social History Additional Details Category Social Info Options Details Migrated Social History Migrated Social History Tobacco Years: Never smoker 09/26/2019 Plan Of Treatment No Information Insurance Providers Payer Name Payer Address Payer Phone Subscriber Number Group Number Insured Name Patient Relationship to Insured Coverage Start Date Coverage End Date [place] [address] [place] [phone] [id number] TIMI GROSSMAN Self - patient is the insured [facility] [address] [place] [address] [id number] TIMI GROSSMAN Self - patient is the insured
[2025-01-14 17:03] VITALS: BP 142/73; PULSE 72; RESP 18; TEMP 36.9; O2SAT 96
--- NOTE | 2025-01-14 17:20 | ED.LOWEXIN ---
HPI - Extremity Injury (Lower) General Chief Complaint: Extremity Injury, Lower Stated Complaint: right leg wound Time Seen by Provider: 01/14/25 17:04 History of Present Illness HPI Narrative: 74-year-old male with history of AFib on Eliquis presents to the emergency department for redness and pain to his right lower extremity after an injury that occurred 3 days ago. Patient states he was working on the [email or web address] when he accidentally scratched his right lower extremity on a metal lab again. He states later that evening he developed redness and swelling to his right lower extremity which has been persistent since. He denies fever, chills or drainage. Patient states his Tdap was updated 2 months ago by his PCP. He also notes he has a chronic wound to his right lower extremity from a dog bite that occurred in September of 2024. He states it drinks clear fluid but has been draining since the injury in September. He has been following with his PCP who is been reportedly evaluated every couple weeks and states it appears to be healing well. He states he did not have any surrounding redness to this wound prior to the injury that occurred 3 days ago. He states he has not been on antibiotics since September. Related Data Home Medications ?Medication ?Instructions ?Recorded ?Confirmed ?Last Taken ?Type alprazolam 1 mg tablet 1 mg PO QID PRN Anxiety 01/29/21 10/09/24 10/09/24 History amlodipine 10 mg tablet 5 mg PO QAM 01/29/21 10/09/24 10/09/24 History apixaban 5 mg tablet (Eliquis) 5 mg PO BID 01/29/21 10/09/24 10/09/24 History fluticasone propionate 50 50 mcg intranasal DAILY PRN 01/29/21 10/09/24 10/08/24 History mcg/actuation nasal Congestion spray,suspension hydrocodone 10 mg-acetaminophen 1 tablet PO QID PRN Pain 01/29/21 10/09/24 10/09/24 History 325 mg tablet pregabalin 50 mg capsule 50 mg PO DAILY PRN nerve pain 01/29/21 10/09/24 10/09/24 History trazodone 50 mg tablet 50 mg PO HS 01/29/21 10/09/24 10/09/24 History diclofenac sodium 75 mg 75 mg PO BID PRN Pain 09/06/22 10/09/24 10/09/24 History tablet,delayed release hydrochlorothiazide 25 mg tablet 1 mg PO QAM PRN Edema 09/06/22 10/09/24 10/09/24 History omeprazole 20 mg capsule,delayed 20 mg PO DAILY 09/06/22 10/09/24 10/09/24 History release sacubitril 24 mg-valsartan 26 mg 1 tablet PO BID 09/06/22 10/09/24 10/09/24 History tablet (Entresto) Allergies Allergy/AdvReac Type Severity Reaction Status Date / Time No Known Allergies Allergy Verified 01/14/25 16:57 Review of Systems Review of Systems: All systems reviewed & are unremarkable except as noted in HPI and below PMFSH Past Medical History Medical History TRI (obstructive sleep apnea) Intolerant to CPAP Transient atrial fibrillation When ill with appendicitis in 2020 on chronic anticoagulation with Eliquis Chronic narcotic use Hypertension Cellulitis of finger of left hand Infected dog bite of hand Surgical History Surgical History History of colonoscopy with polypectomy May 2020 demonstrating hyperplastic polyp repeat colonoscopy January 2021 was normal except for internal hemorrhoids History of tonsillectomy and adenoidectomy Status post cataract extraction of both eyes with insertion of intraocular lens Status post insertion of spinal cord stimulator History of left shoulder replacement (~2021) History of appendectomy (~2020) History of incision and drainage (08/18/22) Abscess of left index finger due to dog bite History of back surgery (~2021) Cervical and lumbar surgery due to spinal stenosis Social History Social History Social History: He lives with his and their 3 dogs. 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 He denies any history of tobacco use. He drinks an alcoholic beverage about once a month. He does smoke marijuana. Code status: Full code Surrogate decision maker: Paola () Smoking status: Never smoker Alcohol intake: current Alcohol use details: 1 drink a month Substance use: current Substance use type: marijuana Last use: 10/08/24 Do You Feel Safe in your Home?: Yes Lack of Transportation: No Lack of Food: Never True Current Housing: I Have Housing Concerned About Future Housing: No Difficulty Paying Gas/Electric Bills: No Difficulty Paying for Meds: No Currently Unemployed: No Education: High School Diploma/GED Difficulty w/ Childcare or Family Care: No Living arrangements: with family Additional living arrangements comments: Gender identity (if verbalized by the patient): Male Sexual Orientation (if Verbalized by the Patient): Straight or Heterosexual Spiritual care concerns: No Exam Narrative: GENERAL: Well-appearing, well-nourished, and in no acute distress. HEAD: Normocephalic, atraumatic. EYES: EOMI. ENT: Nares clear, no rhinorrhea or epistaxis. Mucous membranes moist. NECK: Supple. CHEST: Clear to auscultation. No respiratory distress. HEART: Regular rate and rhythm. No murmur heard. Normal peripheral pulses. EXTREMITIES: Normal range of motion. No edema. SKIN: 2cm x 3cm chronic wound to the medial distal tibia with granulating tissue and some biofilm inferiorly, no necrosis, no induration or fluctuation. There is a 3cm x 4cm hematoma with superficial healing abrasions and ecchymosis. There is warmth and erythema throughout the distal tib-fib with 1 to 2+ pitting edema. DP pulses 2+. Sensation intact. No crepitus NEURO: No focal deficits. Alert and oriented x3 Course Vital Signs Vital signs: Vital Signs Temperature 98.5 F 01/14/25 17:03 Pulse Rate 72 01/14/25 17:03 Respiratory Rate 18 01/14/25 17:03 Blood Pressure 142/73 H 01/14/25 17:03 Pulse Oximetry 96 01/14/25 17:03 Oxygen Delivery Room Air 01/14/25 17:03 Temperature 98.5 F 01/14/25 17:03 Pulse Rate 56 L 01/14/25 17:45 Respiratory Rate 16 01/14/25 17:45 Blood Pressure 130/76 01/14/25 17:45 Pulse Oximetry 97 01/14/25 17:45 Oxygen Delivery Room Air 01/14/25 17:03 MDM - Extremity Injury (Lower) MDM Narrative Medical decision making narrative: 74-year-old male with a reported history of AFib on Eliquis presents to the emergency department for a wound to his right lower extremity that occurred 3 days ago. Patient also has a chronic wound to the right lower extremity from a dog bite that occurred in September of 2024. See HPI for further history. Triage vitals are stable. Patient is afebrile and nontoxic appearing. Exam is significant for the above. CBC shows no leukocytosis. Hemoglobin is 9.5 with an elevated MCV similar to prior labs. Chemistries are largely unremarkable. CRP elevated 1.9, ESR elevated at 34. X-ray shows no concerning findings for osteomyelitis. Patient updated on results. Remains resting comfortably in exam bed. Bedside ultrasound placed on lower tib-fib over concerning area for hematoma with ultrasound findings consistent with superficial hematoma. Shared decision making regarding disposition. I did offer admission for IV antibiotics given duration of chronic wound and concurrent cellulitis, however patient politely declined states he will follow-up closely with his PCP. Will start him on Keflex for cellulitis. I advised him to continue wound dressings and follow-up closely with his PCP. Advised he may need referral for wound clinic by his PCP. Discussed strict ED return precautions. Patient is agreeable with the plan verbalized understanding. Discharged in stable condition. Lab Data 01/14/25 18:08 01/14/25 18:08 Labs: Lab Results 01/14/25 Range/Units 18:08 WBC 6.0 (4.5-10.0) K/mm3 RBC 2.97 L (4.6-6.20) M/mm3 Hgb 9.5 L (14.0-18.0) g/dL Hct 30.1 L (42.0-52.0) % MCV 101.3 H (80-100) fl MCH 32.0 (26-34) pg MCHC 31.6 L (32-36) g/dl RDW 14.8 H (11.5-14.5) % Plt Count 212 (150-375) k/mm3 MPV 11.3 H (7.4-10.4) fl Immature Gran % (Auto) 0.3 (0-0.5) % Neut % (Auto) 64.2 (45.5-73.1) % Lymph % (Auto) 18.0 L (18.3-44.2) % [place] % (Auto) 13.1 H (2.6-8.5) % Eos % (Auto) 3.2 (0-4.4) % Baso % (Auto) 1.2 (0.2-1.2) % Lymph # (Auto) 1.07 (0.9-3.2) K/mm3 [place] # (Auto) 0.8 H (0.1-0.6) K/mm3 Eos # (Auto) 0.2 (0-0.3) K/mm3 Baso # (Auto) 0.1 (0.0-0.1) K/mm3 Abs Immat Gran (auto) 0.02 (0.00-0.031) K/mm3 Absolute Neuts (auto) 3.8 (1.3-6.7) K/mm3 Absolute Nucleated RBC 0.000 (0.0-0.012) K/mm3 Nucleated RBC % 0.0 (0.0-0.2) % ESR 34 H (0-20) mm/hr Sodium 133 L (137-145) mmol/L Potassium 4.6 (3.4-5.0) mmol/L Chloride 99 (98-107) mmol/L Carbon Dioxide 32 H (22-30) mmol/L Anion Gap 2 L (4-12) mmol/L BUN 14 (9-20) mg/dL Creatinine 0.67 L (0.7-1.3) mg/dL Estim Creat Clear Calc 78 ml/min Estimated GFR > 60 (59 - ) Glucose 92 (65-110) mg/dL Calcium 8.5 (8.4-10.2) mg/dL Total Bilirubin 0.4 (0.2-1.3) mg/dL AST 28 (17-59) U/L ALT 16 (6-50) U/L Alkaline Phosphatase 73 (38-126) U/L C-Reactive Protein 1.9 H (<1.0) mg/dL Total Protein 6.6 (6.3-8.2) g/dL Albumin 3.9 (3.5-5.1) g/dL Discharge Plan Discharge Clinical Impression: Cellulitis, Hematoma, Chronic wound of extremity Patient Disposition: Home Condition: Stable Instructions: Antibiotic Form, Cellulitis (ED), Hematoma (ED) Additional Instructions: Please take the antibiotic as directed. Follow-up closely with her PCP. You may need to be referred to wound clinic by her PCP for your chronic wound. Please continue dressings. Return to the emergency department if you develop a fever, increased redness, increased pain, or other concerning symptoms. Patient Language: Urdu Prescriptions: New cephalexin 500 mg capsule 500 mg PO Q6H Qty: 28 0RF No Action omeprazole 20 mg capsule,delayed release(DR/EC) 20 mg PO DAILY diclofenac sodium 75 mg tablet,delayed release (DR/EC) 75 mg PO BID PRN (Reason: Pain) hydrochlorothiazide 25 mg tablet 1 mg PO QAM PRN (Reason: Edema) Entresto 24-26 mg tablet 1 tablet PO BID trazodone 50 mg tablet 50 mg PO HS alprazolam 1 mg tablet 1 mg PO QID PRN (Reason: Anxiety) hydrocodone-acetaminophen 10-325 mg tablet 1 tablet PO QID PRN (Reason: Pain) amlodipine 10 mg tablet 5 mg PO QAM fluticasone propionate 50 mcg/actuation spray,suspension 50 mcg INTRANASAL DAILY PRN (Reason: Congestion) pregabalin 50 mg capsule 50 mg PO DAILY PRN (Reason: nerve pain) Eliquis 5 mg Tablet 5 mg PO BID amoxicillin-pot clavulanate 875-125 mg tablet 1 tablet PO Q12H Qty: 14 0RF Follow-up/Referrals: Vick,Ant Rodriguez MD [Primary Care Provider]
[2025-01-14 17:45] VITALS: BP 130/76; PULSE 56; RESP 16; O2SAT 97
[2025-01-14 18:17] LABS: Hematocrit 30.1 % (42.0-52.0); Hemoglobin 9.5 g/dL (14.0-18.0); Immature Granulocyte Percent A 0.3 % (0-0.5); Lymphocytes Absolute Auto 1.07 K/mm3 (0.9-3.2); Mean Corpuscular HGB Conc 31.6 g/dl (32-36); Mean Corpuscular Hemoglobin 32.0 pg (26-34); Mean Corpuscular Volume 101.3 fl (80-100); Nucleated Red Blood Cells Absolute Auto 0.000 K/mm3 (0.0-0.012); Nucleated Red Blood Cells Perc 0.0 % (0.0-0.2); Platelet Count Result 212 k/mm3 (150-375); Red Blood Count 2.97 M/mm3 (4.6-6.20); White Blood Count 6.0 K/mm3 (4.5-10.0)
[2025-01-14 18:30] LABS: Alanine Aminotransferase 16 U/L (6-50); Albumin Level 3.9 g/dL (3.5-5.1); Alkaline Phosphatase 73 U/L (38-126); Anion Gap 2 mmol/L (4-12); Aspartate Amino Transferase 28 U/L (17-59); Bilirubin,Total 0.4 mg/dL (0.2-1.3); Blood Urea Nitrogen 14 mg/dL (9-20); CRP 1.9 mg/dL (<1.0); Calcium 8.5 mg/dL (8.4-10.2); Carbon Dioxide 32 mmol/L (22-30); Chloride 99 mmol/L (98-107); Estimated CRCL calculation 78 ml/min; Estimated Glomerular Filt Rate > 60; Glucose 92 mg/dL (65-110); Potassium 4.6 mmol/L (3.4-5.0); Sodium 133 mmol/L (137-145); Total Protein 6.6 g/dL (6.3-8.2)
--- NOTE | 2025-01-14 19:11 | PC.NURSE ---
BSSR received from ISA Carlin at this time. Pt resting comfortably in bed with no requests at this time. Call light within reach.
[2025-01-14] MEDS: CEPHALEXIN 500 MG CAPSULE PO (19:29)
[2025-01-14 19:32] VITALS: BP 128/74; PULSE 68; RESP 15; TEMP 36.7; O2SAT 97
== END 2025-01-14 19:34 | disposition home or self-care (01) ==
PROVIDERS: Emergency Provider Physician Assistant; PCP Internal Medicine
DX: L03.115 Cellulitis of right lower limb (principal); S80.11XA Contusion of right lower leg, initial encounter; G47.30 Sleep apnea, unspecified; Z79.01 Long term (current) use of anticoagulants; I10 Essential (primary) hypertension; W22.09XA Striking against other stationary object, initial encounter
CPT/HCPCS: 36415; 73590; 80053; 85025; 85652; 86140; 99283; A9270